=== PATIENT | female | born 1985 | race Caucasian/White ===

== ENCOUNTER 2016-06-06 23:55 | Emergency (ER) | payer OTHER ==
[2016-06-07] MEDS ORDERED: SODIUM CHLORIDE 0.9% 500 ML IV STA (00:09)
[2016-06-07] MEDS ORDERED: SODIUM CHLORIDE 0.9% 1,000 ML IV STA (00:09)
--- NOTE | 2016-06-07 00:18 | ED ---
General Adult HPI - General Chief complaint: Dizziness Stated complaint: Syncope Time Seen by Provider: 06/07/16 00:09 Source: patient, RN notes reviewed, old records reviewed Mode of arrival: wheelchair Limitations: no limitations - History of Present Illness Initial comments: This is a 30-year-old female the ER for evaluation of dizziness and syncope. Patient states she was sitting in a chair watching TV set up and passed out. Patient denies any prior history of syncope. Patient did give vaginal to her second child 7 months ago, no complications since. Patient has no medical history takes no medication was recently treated for urinary tract infection secondary to having urge incontinence. Patient denies any recent fevers. Again no headache chest patient was breath about pain no change in medications. Patient is does admit to both occasional drinking and smoking - Related Data Home Medications Medication Instructions Recorded Confirmed No Known Home Medications [No 02/22/16 06/07/16 Known Home Medications] Allergies Allergy/AdvReac Type Severity Reaction Status Date / Time sulfamethoxazole Allergy Rash/Hives Verified 06/07/16 00:03 [From Bactrim] trimethoprim [From Bactrim] Allergy Rash/Hives Verified 06/07/16 00:03 Review of Systems ROS Statement: Those systems with pertinent positive or pertinent negative responses have been documented in the HPI. ROS Other: All systems not noted in ROS Statement are negative. Past Medical History Past Medical History: GERD/Reflux History of Any Multi-Drug Resistant Organisms: None Reported Past Surgical History: No Surgical Hx Reported Past Anesthesia/Blood Transfusion Reactions: No Reported Reaction Past Psychological History: No Psychological Hx Reported Smoking Status: Current every day smoker Past Alcohol Use History: Occasional Additional Past Alcohol Use History / Comment(s): Pt states she drinks about one drink a week (one beer or glass of wine) Past Drug Use History: None Reported - Past Family History Mother Family Medical History: No Reported History General Exam Limitations: no limitations General appearance: alert, in no apparent distress, anxious Head exam: Present: atraumatic, normocephalic, normal inspection Eye exam: Present: normal appearance, PERRL, EOMI. Absent: scleral icterus, conjunctival injection, periorbital swelling ENT exam: Present: normal exam, mucous membranes moist Neck exam: Present: normal inspection. Absent: tenderness, meningismus, lymphadenopathy Respiratory exam: Present: normal lung sounds bilaterally. Absent: respiratory distress, wheezes, rales, rhonchi, stridor Cardiovascular Exam: Present: regular rate, normal rhythm, normal heart sounds. Absent: systolic murmur, diastolic murmur, rubs, gallop, clicks GI/Abdominal exam: Present: soft, normal bowel sounds. Absent: distended, tenderness, guarding, rebound, rigid Extremities exam: Present: normal inspection, full ROM, normal capillary refill. Absent: tenderness, pedal edema, joint swelling, calf tenderness Back exam: Present: normal inspection Neurological exam: Present: alert, oriented X3, CN II-XII intact Psychiatric exam: Present: normal affect, normal mood Skin exam: Present: warm, dry, intact, normal color. Absent: rash Course Vital Signs 06/07/16 00:01 Temperature 98.2 F Pulse Rate 80 Respiratory 20 Rate Blood Pressure 108/65 O2 Sat by Pulse 100 Oximetry - Reevaluation(s) Reevaluation #1: 06/07/16 00:59 Patient very anxious with IV placement, having panic attack Reevaluation #2: 06/07/16 02:08 Patient is without syncopal event here in the ER, no headache chest pain shortness of breath or abdominal pain EKG Findings - EKG Comments: EKG Findings:: EKG shows normal sinus rhythm rate of 69, MD 114, QRS 86, QTC 4: 30 Medical Decision Making - Medical Decision Making 1989 for evaluation. Patient presents today for evaluation of syncopal event. That appears to be positional in nature, patient of from sitting to standing and passed out. She has dehydrated on exam. Lab work is otherwise normal, no headache chest patient was rather bowel pain. Patient can be discharged home - Lab Data Result diagrams: 06/07/16 00:29 06/07/16 00:29 Lab Results 06/07/16 06/07/16 06/07/16 Range/Units 00:29 00:29 00:29 WBC 5.1 (3.8-10.6) k/uL RBC 4.28 (3.80-5.40) m/uL Hgb 13.7 (11.4-16.0) gm/dL Hct 40.2 (34.0-46.0) % MCV 93.8 (80.0-100.0) fL MCH 32.1 (25.0-35.0) pg MCHC 34.2 (31.0-37.0) g/dL RDW 12.4 (11.5-15.5) % Plt Count 130 L (150-450) k/uL Neutrophils % 66 % Lymphocytes % 25 % Monocytes % 6 % Eosinophils % 2 % Basophils % 0 % Neutrophils # 3.3 (1.3-7.7) k/uL Lymphocytes # 1.3 (1.0-4.8) k/uL Monocytes # 0.3 (0-1.0) k/uL Eosinophils # 0.1 (0-0.7) k/uL Basophils # 0.0 (0-0.2) k/uL PT (9.0-12.0) sec INR (<1.1) APTT (22.0-30.0) sec D-Dimer (<0.60) mg/L FEU Sodium 139 (137-145) mmol/L Potassium 3.9 (3.5-5.1) mmol/L Chloride 104 (98-107) mmol/L Carbon Dioxide 25 (22-30) mmol/L Anion Gap 10 mmol/L BUN 12 (7-17) mg/dL Creatinine 0.50 L (0.52-1.04) mg/dL Est GFR (MDRD) Af Amer >60 (>60 ml/min/1.73 sqM) Est GFR (MDRD) Non-Af >60 (>60 ml/min/1.73 sqM) Glucose 100 H (74-99) mg/dL Calcium 9.0 (8.4-10.2) mg/dL Phosphorus 3.3 (2.5-4.5) mg/dL Magnesium 1.9 (1.6-2.3) mg/dL Total Bilirubin 0.5 (0.2-1.3) mg/dL AST 23 (14-36) U/L ALT 24 (9-52) U/L Alkaline Phosphatase 86 (38-126) U/L Total Creatine Kinase 33 (30-135) U/L CK-MB (CK-2) <0.2 (0.0-2.4) ng/mL CK-MB (CK-2) Rel Index Troponin I <0.012 (0.000-0.034) ng/mL Total Protein 6.4 (6.3-8.2) g/dL Albumin 4.2 (3.5-5.0) g/dL TSH 0.989 (0.465-4.680) mIU/L Urine Color Urine Appearance (Clear) Urine pH (5.0-8.0) Ur Specific [place] (1.001-1.035) Urine Protein (Negative) Urine Glucose (UA) (Negative) Urine Ketones (Negative) Urine Blood (Negative) Urine Nitrate (Negative) Urine Bilirubin (Negative) Urine Urobilinogen (<2.0) mg/dL Ur Leukocyte Esterase (Negative) Urine RBC (0-5) /hpf Urine WBC (0-5) /hpf Ur Squamous Epith Cells (0-4) /hpf Amorphous Sediment (None) /hpf Urine Bacteria (None) /hpf Urine Mucus (None) /hpf Urine HCG, Qual (Not Detectd) 06/07/16 06/07/16 06/07/16 Range/Units 00:29 00:29 00:29 WBC (3.8-10.6) k/uL RBC (3.80-5.40) m/uL Hgb (11.4-16.0) gm/dL Hct (34.0-46.0) % MCV (80.0-100.0) fL MCH (25.0-35.0) pg MCHC (31.0-37.0) g/dL RDW (11.5-15.5) % Plt Count (150-450) k/uL Neutrophils % % Lymphocytes % % Monocytes % % Eosinophils % % Basophils % % Neutrophils # (1.3-7.7) k/uL Lymphocytes # (1.0-4.8) k/uL Monocytes # (0-1.0) k/uL Eosinophils # (0-0.7) k/uL Basophils # (0-0.2) k/uL PT 10.9 (9.0-12.0) sec INR 1.1 (<1.1) APTT 27.3 (22.0-30.0) sec D-Dimer 0.30 (<0.60) mg/L FEU Sodium (137-145) mmol/L Potassium (3.5-5.1) mmol/L Chloride (98-107) mmol/L Carbon Dioxide (22-30) mmol/L Anion Gap mmol/L BUN (7-17) mg/dL Creatinine (0.52-1.04) mg/dL Est GFR (MDRD) Af Amer (>60 ml/min/1.73 sqM) Est GFR (MDRD) Non-Af (>60 ml/min/1.73 sqM) Glucose (74-99) mg/dL Calcium (8.4-10.2) mg/dL Phosphorus (2.5-4.5) mg/dL Magnesium (1.6-2.3) mg/dL Total Bilirubin (0.2-1.3) mg/dL AST (14-36) U/L ALT (9-52) U/L Alkaline Phosphatase (38-126) U/L Total Creatine Kinase (30-135) U/L CK-MB (CK-2) (0.0-2.4) ng/mL CK-MB (CK-2) Rel Index Troponin I (0.000-0.034) ng/mL Total Protein (6.3-8.2) g/dL Albumin (3.5-5.0) g/dL TSH (0.465-4.680) mIU/L Urine Color Yellow Urine Appearance Cloudy H (Clear) Urine pH 7.5 (5.0-8.0) Ur Specific [place] 1.017 (1.001-1.035) Urine Protein Trace H (Negative) Urine Glucose (UA) Negative (Negative) Urine Ketones Negative (Negative) Urine Blood Negative (Negative) Urine Nitrate Negative (Negative) Urine Bilirubin Negative (Negative) Urine Urobilinogen <2.0 (<2.0) mg/dL Ur Leukocyte Esterase Moderate H (Negative) Urine RBC 3 (0-5) /hpf Urine WBC 3 (0-5) /hpf Ur Squamous Epith Cells 20 H (0-4) /hpf Amorphous Sediment Rare H (None) /hpf Urine Bacteria Rare H (None) /hpf Urine Mucus Rare H (None) /hpf Urine HCG, Qual Not Detected (Not Detectd) Disposition Clinical Impression: Dehydration, Orthostatic hypotension, Vasovagal syncope Disposition: HOME SELF-CARE Condition: Good Instructions: Syncope (ED) Referrals: None,Stated [Primary Care Provider] - 1-2 days
[2016-06-07 00:44] LABS: Basophils % (A) 0 %; CH 31.8; CHCM 34.1; Eosinophils # (A) 0.1 k/uL (0-0.7); Eosinophils % (A) 2 %; HCT 40.2 % (34.0-46.0); HDW 2.59; HGB 13.7 gm/dL (11.4-16.0); Luc # (Auto) 0.07; Luc % (Auto) 1; Lymphocytes # (A) 1.3 k/uL (1.0-4.8); Lymphocytes % (A) 25 %; MCH 32.1 pg (25.0-35.0); MCHC 34.2 g/dL (31.0-37.0); MCV 93.8 fL (80.0-100.0); Mean Platelet Volume 8.1; Monocytes # (A) 0.3 k/uL (0-1.0); Monocytes % (A) 6 %; Neutrophils # (A) 3.3 k/uL (1.3-7.7); Neutrophils % (A) 66 %; RBC 4.28 m/uL (3.80-5.40); RDW 12.4 % (11.5-15.5); WBC 5.1 k/uL (3.8-10.6); WBC (Perox) 5.17
[2016-06-07 00:51] LABS: Amorphous Sediment,Urine Rare /hpf; Appearance,Urine Cloudy (Clear); Bacteria,Urine Rare /hpf; Bilirubin,Urine Negative (Negative); Glucose,Urine (UA) Negative (Negative); Ketones,Urine Negative (Negative); Leukocyte Esterase,Urine Moderate (Negative); Mucus,Urine Rare /hpf; Nitrite,Urine Negative (Negative); PH, Urine 7.5 (5.0-8.0); Particle Count 18810; Protein,Urine Trace (Negative); RBC,Urine 3 /hpf (0-5); Specific Gravity,Urine 1.017 (1.001-1.035); Squamous Epithelial Cell,Urine 20 /hpf (0-4); UA Billing (MACRO vs. MICRO) MICRO; Urobilinogen,Urine <2.0 mg/dL (<2.0); WBC,Urine 3 /hpf (0-5)
[2016-06-07 00:53] LABS: ALT 24 U/L (9-52); AST 23 U/L (14-36); Alkaline Phosphatase 86 U/L (38-126); Anion Gap 10 mmol/L; Blood Urea Nitrogen 12 mg/dL (7-17); Carbon Dioxide 25 mmol/L (22-30); Chloride 104 mmol/L (98-107); Glucose 100 mg/dL (74-99); Magnesium 1.9 mg/dL (1.6-2.3); Non-African American GFR(MDRD) >60 (>60 ml/min/1.73 sqM); Phosphorous 3.3 mg/dL (2.5-4.5); Potassium 3.9 mmol/L (3.5-5.1); Sodium 139 mmol/L (137-145); Total Bilirubin 0.5 mg/dL (0.2-1.3); Total Protein 6.4 g/dL (6.3-8.2)
[2016-06-07 01:03] LABS: Creatine Kinase 33 U/L (30-135)
[2016-06-07 01:04] LABS: INR 1.1 (<1.1); Partial Thromboplastin Time 27.3 sec (22.0-30.0); Prothrombin Time 10.9 sec (9.0-12.0)
[2016-06-07 01:17] LABS: Creatine Kinase MB <0.2 ng/mL (0.0-2.4); Troponin I <0.012 ng/mL (0.000-0.034)
[2016-06-07 02:22] VITALS: BP 122/71; PULSE 67; RESP 18; TEMP 98
== END 2016-06-07 02:22 | disposition home or self-care (01) ==
LOC: EC 23:55
DX: E86.0 Dehydration (principal); I95.1 Orthostatic hypotension; R55 Syncope and collapse; F41.0 Panic disorder [episodic paroxysmal anxiety]; Z88.1 Allergy status to other antibiotic agents; Z88.2 Allergy status to sulfonamides; F17.200 Nicotine dependence, unspecified, uncomplicated
CPT/HCPCS: 36415; 80053; 81001; 81025; 82550; 82553; 83735; 84100; 84443; 84484; 85025; 85379; 85610; 85730; 87086; 93005; 99284

== ENCOUNTER 2017-02-13 20:41 | Emergency (ER) | payer OTHER ==
[2017-02-13 20:57] VITALS: RESP 16
--- NOTE | 2017-02-13 21:51 | ED ---
Female Urogenital HPI - General Chief complaint: Urogenital Stated complaint: cramping,pelvic pain Time Seen by Provider: 02/13/17 21:14 Source: patient Mode of arrival: ambulatory Limitations: no limitations - History of Present Illness Initial comments: This patient is a 31-year-old woman who presents to be evaluated for pelvic and vaginal pains. She states that going on for couple of days she has had pelvic cramping and also a feeling of pressure and sometimes burning sensations in the vagina itself. She states that she stopped at the [facility] where she had her urine tested and was told that it was fine. They recommended a pelvic examination but she states it was known watch her child during the exam so this was not performed. She was instructed that should the pains recur she should go to the ER which did happen this evening. Patient describes the pains as somewhat intermittent, they can be moderate intensity. She has not discovered worsening or relieving factors. She has not noted any change in urination or bowel movements. She has not had any discharge. MD Complaint: pelvic pain Onset/Timin -: days(s) Location: perineum, suprapubic Radiation: non-radiating Severity: moderate Quality: cramping, burning, other (Pressure) Consistency: intermittent Improves with: none Worsens with: none Patient : No - Related Data Home Medications Medication Instructions Recorded Confirmed No Known Home Medications [No 02/22/16 02/13/17 Known Home Medications] Allergies Allergy/AdvReac Type Severity Reaction Status Date / Time sulfamethoxazole Allergy Rash/Hives Verified 02/13/17 21:21 [From Bactrim] trimethoprim [From Bactrim] Allergy Rash/Hives Verified 02/13/17 21:21 Review of Systems ROS Statement: Those systems with pertinent positive or pertinent negative responses have been documented in the HPI. ROS Other: All systems not noted in ROS Statement are negative. Constitutional: Denies: fever, chills Respiratory: Denies: cough, dyspnea Cardiovascular: Denies: chest pain, palpitations Gastrointestinal: Reports: abdominal pain. Denies: nausea, vomiting, diarrhea, constipation Genitourinary: Reports: abnormal menses. Denies: dysuria, hematuria, discharge Musculoskeletal: Denies: back pain Skin: Denies: rash Neurological: Denies: headache, weakness, numbness Past Medical History Past Medical History: GERD/Reflux History of Any Multi-Drug Resistant Organisms: None Reported Past Surgical History: No Surgical Hx Reported Past Anesthesia/Blood Transfusion Reactions: No Reported Reaction Past Psychological History: No Psychological Hx Reported Smoking Status: Current every day smoker Past Alcohol Use History: Occasional Past Drug Use History: Marijuana - Past Family History Mother Family Medical History: No Reported History General Exam Limitations: no limitations General appearance: alert, in no apparent distress Head exam: Present: atraumatic, normocephalic Eye exam: Present: normal appearance. Absent: scleral icterus, conjunctival injection ENT exam: Present: normal oropharynx, mucous membranes moist Respiratory exam: Present: normal lung sounds bilaterally. Absent: respiratory distress, wheezes, rales, rhonchi, stridor Cardiovascular Exam: Present: regular rate, normal rhythm, normal heart sounds. Absent: systolic murmur, diastolic murmur, rubs, gallop GI/Abdominal exam: Present: soft, normal bowel sounds. 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 Absent: erythema, swelling, lesions, lacerations, ecchymosis Speculum exam: Present: normal speculum exam. Absent: erythema, vaginal discharge, cervical discharge, vaginal bleeding, foreign body, tissue, laceration By manual exam: Present: adnexal tenderness (Mild left adnexal tenderness). Absent: cervical motion tenderness, adnexal mass, uterine enlargement, uterine tenderness Extremities exam: Present: normal inspection, normal capillary refill. Absent: pedal edema, calf tenderness Back exam: Present: normal inspection. Absent: CVA tenderness (R), CVA tenderness (L) Neurological exam: Present: alert Skin exam: Present: warm, dry, intact, normal color. Absent: rash Course Vital Signs 02/13/17 20:53 Temperature 98.7 F Pulse Rate 93 Respiratory 16 Rate Blood Pressure 106/69 O2 Sat by Pulse 99 Oximetry Medical Decision Making - Lab Data Lab Results 02/13/17 02/13/17 02/13/17 Range/Units 21:45 21:45 22:30 Urine Color Yellow Urine Appearance Clear (Clear) Urine pH 6.5 (5.0-8.0) Ur Specific [place] 1.023 (1.001-1.035) Urine Protein Trace H (Negative) Urine Glucose (UA) Negative (Negative) Urine Ketones Negative (Negative) Urine Blood Negative (Negative) Urine Nitrite Negative (Negative) Urine Bilirubin Negative (Negative) Urine Urobilinogen <2.0 (<2.0) mg/dL Ur Leukocyte Esterase Negative (Negative) Urine HCG, Qual Not Detected (Not Detectd) Trichomonas Ag (Rapid) Negative (Negative) Disposition Clinical Impression: Pelvic pain Disposition: HOME SELF-CARE Condition: Good Instructions: Pelvic Pain in Women (ED) Referrals: Malik Samayoa MD [Primary Care Provider] - 1-2 days Aileen Gomez DO [Doctor of Osteopathic Medicine] - 1-2 days
[2017-02-13 21:57] LABS: Appearance,Urine Clear (Clear); Bilirubin,Urine Negative (Negative); Glucose,Urine (UA) Negative (Negative); Ketones,Urine Negative (Negative); Leukocyte Esterase,Urine Negative (Negative); Nitrite,Urine Negative (Negative); PH, Urine 6.5 (5.0-8.0); Protein,Urine Trace (Negative); Specific Gravity,Urine 1.023 (1.001-1.035); UA Billing (MACRO vs. MICRO) CHEM; Urobilinogen,Urine <2.0 mg/dL (<2.0)
--- NOTE | 2017-02-13 23:25 | US ---
EXAM: US Pelvis Complete, Transabdominal US Pelvis, Transvaginal CLINICAL HISTORY: Reason: Pain TECHNIQUE: Real-time transabdominal and transvaginal pelvic ultrasound (complete) with image documentation. Transvaginal imaging was used for better evaluation of the endometrium and adnexa. COMPARISON: No relevant prior studies available. FINDINGS: Uterus/cervix: Unremarkable. Normal endometrial stripe thickness. No myometrial mass. The uterus measures 7.0 x 5.4 x 6.3 cm. Right ovary: Not well seen due to overlying bowel gas. Left ovary: Unremarkable. No mass. Normal blood flow. Left ovary measures 4.1 x 2.0 x 2.8 cm. Free fluid: No free fluid. Bladder: Unremarkable as visualized. Wall is normal thickness for degree of distention. IMPRESSION: No significant abnormalities.
[2017-02-13 23:40] VITALS: BP 142/70; PULSE 67; TEMP 97.4
== END 2017-02-13 23:39 | disposition home or self-care (01) ==
LOC: EC 20:41
DX: R10.2 Pelvic and perineal pain (principal); R10.30 Lower abdominal pain, unspecified; F17.200 Nicotine dependence, unspecified, uncomplicated; Z88.1 Allergy status to other antibiotic agents
CPT/HCPCS: 76830; 81003; 81025; 87070; 87205; 87491; 87591; 87808; 93976; 99284

== ENCOUNTER 2017-02-18 13:33 | Emergency (ER) | payer OTHER ==
[2017-02-18 16:14] LABS: ALT 22 U/L (9-52); AST 19 U/L (14-36); Alkaline Phosphatase 51 U/L (38-126); Anion Gap 8 mmol/L; Blood Urea Nitrogen 7 mg/dL (7-17); Calcium 8.9 mg/dL (8.4-10.2); Carbon Dioxide 23 mmol/L (22-30); Chloride 108 mmol/L (98-107); Glucose 79 mg/dL (74-99); Non-African American GFR(MDRD) >60 (>60 ml/min/1.73 sqM); Sodium 139 mmol/L (137-145); Total Bilirubin 0.7 mg/dL (0.2-1.3); Total Protein 6.7 g/dL (6.3-8.2)
[2017-02-18 16:15] LABS: Basophils % (A) 1 %; CH 31.2; CHCM 34.2; Eosinophils % (A) 1 %; HCT 37.2 % (34.0-46.0); HGB 12.7 gm/dL (11.4-16.0); Luc # (Auto) 0.12; Luc % (Auto) 4; Lymphocytes # (A) 0.6 k/uL (1.0-4.8); Lymphocytes % (A) 20 %; MCH 31.4 pg (25.0-35.0); MCHC 34.2 g/dL (31.0-37.0); MCV 91.8 fL (80.0-100.0); Mean Platelet Volume 8.4; Monocytes # (A) 0.2 k/uL (0-1.0); Monocytes % (A) 9 %; Neutrophils # (A) 1.9 k/uL (1.3-7.7); Neutrophils % (A) 66 %; RBC 4.05 m/uL (3.80-5.40); RDW 13.1 % (11.5-15.5); WBC 2.8 k/uL (3.8-10.6); WBC (Perox) 2.82
--- NOTE | 2017-02-18 16:26 | ED ---
General Adult HPI - General Chief complaint: Abdominal Pain Stated complaint: blood in stool Time Seen by Provider: 02/18/17 15:23 Source: patient Mode of arrival: ambulatory Limitations: no limitations - History of Present Illness Initial comments: This is a 31-year-old female with no past medical history who presents emergency department for rectal bleeding. She states that she had a couple of bowel movements today with bright red blood streaking on the stool. She became concerned so she decided come emergency department. She states that she has been having some lower abdominal pain intermittently however not constant. She states that she was evaluated here with pelvic ultrasound was normal and sent home. She denies any diarrhea. She states that the stool was not grossly the itself it's just streaking mixed in with the stool. She denies any epigastric pain. No nausea or vomiting. No fevers or chills. No lightheadedness. No other complaints. - Related Data Previous Rx's Medication Instructions Recorded Hydrocortisone [Anusol-Hc] 1 applic RECTAL BID #30 gm 02/18/17 Allergies Allergy/AdvReac Type Severity Reaction Status Date / Time sulfamethoxazole Allergy Rash/Hives Verified 02/18/17 15:37 [From Bactrim] trimethoprim [From Bactrim] Allergy Rash/Hives Verified 02/18/17 15:37 Review of Systems ROS Statement: Those systems with pertinent positive or pertinent negative responses have been documented in the HPI. ROS Other: All systems not noted in ROS Statement are negative. Past Medical History Past Medical History: GERD/Reflux Additional Past Medical History / Comment(s): rectal fissure History of Any Multi-Drug Resistant Organisms: None Reported Past Surgical History: No Surgical Hx Reported Past Anesthesia/Blood Transfusion Reactions: No Reported Reaction Past Psychological History: No Psychological Hx Reported Smoking Status: Current every day smoker Past Alcohol Use History: Occasional Past Drug Use History: Marijuana - Past Family History Mother Family Medical History: No Reported History General Exam - General Exam Comments Initial Comments: Constitutional: [Awake alert] [Appears comfortable] Head: [Normocephalic atraumatic] Eyes: [no conjunctival injection] [No scleral icterus] [EOMI] Neck: [No JVD] [Supple] Heart: [Regular rate rhythm] [normal S1-S2] [no murmurs] Lungs: [Clear to auscultation bilaterally] [No wheezing] [No rales] Abdomen: [Soft] [nondistended] [nontender], rectal exam revealed external hemorrhoids. There also internal hemorrhoids palpated. Guaiac was negative. Extremities: [Non edematous] [DP pulses intact] [Radial pulses intact] Neuro: [A&Ox3] [No focal neurologic deficits] Psych: [Appropriate mood and affect] Limitations: no limitations Course Vital Signs 02/18/17 14:18 Temperature 98.9 F Pulse Rate 82 Respiratory 20 Rate Blood Pressure 107/64 O2 Sat by Pulse 99 Oximetry Medical Decision Making - Medical Decision Making This is a 31-year-old female presented for rectal bleeding. Blood counts were normal. Rectal exam revealed hemorrhoids. At this time I feel the patient's bleeding is likely secondary to her hemorrhoids. I'm going to send her home with Anusol cream that she can use twice a day. She can return she has worsening or changing symptoms. Otherwise follow-up with her primary doctor. All questions were answered. - Lab Data Result diagrams: 02/18/17 15:50 02/18/17 15:50 Lab Results 02/18/17 02/18/17 Range/Units 15:50 15:50 WBC 2.8 L (3.8-10.6) k/uL RBC 4.05 (3.80-5.40) m/uL Hgb 12.7 (11.4-16.0) gm/dL Hct 37.2 (34.0-46.0) % MCV 91.8 (80.0-100.0) fL MCH 31.4 (25.0-35.0) pg MCHC 34.2 (31.0-37.0) g/dL RDW 13.1 (11.5-15.5) % Plt Count 103 L (150-450) k/uL Neutrophils % 66 % Lymphocytes % 20 % Monocytes % 9 % Eosinophils % 1 % Basophils % 1 % Neutrophils # 1.9 (1.3-7.7) k/uL Lymphocytes # 0.6 L (1.0-4.8) k/uL Monocytes # 0.2 (0-1.0) k/uL Eosinophils # 0.0 (0-0.7) k/uL Basophils # 0.0 (0-0.2) k/uL Sodium 139 (137-145) mmol/L Potassium 4.0 (3.5-5.1) mmol/L Chloride 108 H (98-107) mmol/L Carbon Dioxide 23 (22-30) mmol/L Anion Gap 8 mmol/L BUN 7 (7-17) mg/dL Creatinine 0.60 (0.52-1.04) mg/dL Est GFR (MDRD) Af Amer >60 (>60 ml/min/1.73 sqM) Est GFR (MDRD) Non-Af >60 (>60 ml/min/1.73 sqM) Glucose 79 (74-99) mg/dL Calcium 8.9 (8.4-10.2) mg/dL Total Bilirubin 0.7 (0.2-1.3) mg/dL AST 19 (14-36) U/L ALT 22 (9-52) U/L Alkaline Phosphatase 51 (38-126) U/L Total Protein 6.7 (6.3-8.2) g/dL Albumin 4.1 (3.5-5.0) g/dL Lipase 96 (23-300) U/L Disposition Clinical Impression: Hemorrhoids Disposition: HOME SELF-CARE Condition: Stable Instructions: Rectal Bleeding (ED) Prescriptions: Hydrocortisone [Anusol-Hc] 1 applic RECTAL BID #30 gm Referrals: Malik Samayoa MD [Primary Care Provider] - 1-2 days
[2017-02-18 16:47] VITALS: BP 105/60; PULSE 66; RESP 16; TEMP 98
== END 2017-02-18 16:46 | disposition home or self-care (01) ==
LOC: EC 13:33
DX: K64.4 Residual hemorrhoidal skin tags (principal); K64.8 Other hemorrhoids; R10.30 Lower abdominal pain, unspecified; F17.200 Nicotine dependence, unspecified, uncomplicated; Z88.1 Allergy status to other antibiotic agents
CPT/HCPCS: 36415; 80053; 83690; 85025; 99284

== ENCOUNTER 2017-05-24 19:34 | Emergency (ER) | payer OTHER ==
[2017-05-24 20:03] VITALS: RESP 18
[2017-05-24] MEDS ORDERED: SODIUM CHLORIDE 0.9% 2,000 ML IR ONE (21:53)
[2017-05-24] MEDS ORDERED: ACETAMINOPHEN TAB 500 MG TAB PO STA (21:55)
[2017-05-24 22:12] LABS: Basophils % (A) 0 %; Eosinophils # (A) 0.1 k/uL (0-0.7); Eosinophils % (A) 1 %; Lymphocytes # (A) 1.3 k/uL (1.0-4.8); Lymphocytes % (A) 23 %; MCH 30.4 pg (25.0-35.0); MCHC 33.3 g/dL (31.0-37.0); MCV 91.4 fL (80.0-100.0); Mean Platelet Volume 8.3; Monocytes # (A) 0.4 k/uL (0-1.0); Monocytes % (A) 6 %; Neutrophils # (A) 3.8 k/uL (1.3-7.7); Neutrophils % (A) 67 %; Platelet Count 145 k/uL (150-450); RBC 4.27 m/uL (3.80-5.40); RDW 13.3 % (11.5-15.5); WBC 5.7 k/uL (3.8-10.6)
[2017-05-24 22:14] LABS: Appearance,Urine Cloudy (Clear); Bilirubin,Urine Negative (Negative); Blood,Urine Negative (Negative); Color,Urine Yellow; Glucose,Urine (UA) Negative (Negative); Ketones,Urine Negative (Negative); Leukocyte Esterase,Urine Small (Negative); Mucus,Urine Occasional /hpf; Nitrite,Urine Negative (Negative); Protein,Urine Trace (Negative); RBC,Urine 1 /hpf (0-5); Squamous Epithelial Cell,Urine 10 /hpf (0-4); Urobilinogen,Urine <2.0 mg/dL (<2.0); WBC,Urine 2 /hpf (0-5)
--- NOTE | 2017-05-24 22:58 | ED ---
Abdominal Pain HPI - General Chief Complaint: Abdominal Pain Stated Complaint: Abd Pain Time Seen by Provider: 05/24/17 21:23 Source: patient, RN notes reviewed, old records reviewed Mode of arrival: ambulatory Limitations: no limitations - History of Present Illness Initial Comments: 31-year-old feel presents emergency department chief complaint of left lower quadrant abdominal pain, and purulent vaginal discharge reports with 4 days. She reports she had a miscarriage in, and was bleeding for the past 6 days prior to the symptoms starting 4 days ago. This is patient's fifth cavities of 3 previous miscarriages 2 living children. She denies fever, chills , vomiting, back pain, dysuria, hematuria. She reports that her pain started immediately after having intercourse. - Related Data Home Medications Medication Instructions Recorded Confirmed No Known Home Medications [No 05/24/17 05/24/17 Known Home Medications] Allergies Allergy/AdvReac Type Severity Reaction Status Date / Time sulfamethoxazole Allergy Rash/Hives Verified 05/24/17 21:18 [From Bactrim] trimethoprim [From Bactrim] Allergy Rash/Hives Verified 05/24/17 21:18 Review of Systems ROS Statement: Those systems with pertinent positive or pertinent negative responses have been documented in the HPI. ROS Other: All systems not noted in ROS Statement are negative. Past Medical History Past Medical History: GERD/Reflux Additional Past Medical History / Comment(s): rectal fissure, miscarriage History of Any Multi-Drug Resistant Organisms: None Reported Past Surgical History: No Surgical Hx Reported Past Anesthesia/Blood Transfusion Reactions: No Reported Reaction Past Psychological History: No Psychological Hx Reported Smoking Status: Current every day smoker Past Alcohol Use History: Occasional Past Drug Use History: Marijuana - Past Family History Mother Family Medical History: No Reported History General Exam - General Exam Comments Initial Comments: This is a 31 year old female, no distress Limitations: no limitations General appearance: alert, in no apparent distress Head exam: Present: atraumatic, normocephalic, normal inspection Eye exam: Present: normal appearance, PERRL, EOMI. Absent: scleral icterus, conjunctival injection, periorbital swelling ENT exam: Present: normal exam, mucous membranes moist Neck exam: Present: normal inspection. Absent: tenderness, meningismus, lymphadenopathy Respiratory exam: Present: normal lung sounds bilaterally. Absent: respiratory distress, wheezes, rales, rhonchi, stridor Cardiovascular Exam: Present: regular rate, normal rhythm, normal heart sounds. Absent: systolic murmur, diastolic murmur, rubs, gallop, clicks GI/Abdominal exam: Present: soft, tenderness (LLQ tenderness), normal bowel sounds. Absent: distended, guarding, rebound, rigid External exam: Present: normal external exam Speculum exam: Present: normal speculum exam. Absent: erythema, vaginal discharge, cervical discharge, vaginal bleeding By manual exam: Present: normal by manual exam. Absent: cervical motion tenderness, adnexal tenderness Extremities exam: Present: normal inspection, full ROM, normal capillary refill. Absent: tenderness, pedal edema, joint swelling, calf tenderness Back exam: Present: normal inspection Neurological exam: Present: alert, oriented X3, CN II-XII intact Psychiatric exam: Present: normal affect, normal mood Skin exam: Present: warm, dry, intact, normal color. Absent: rash Course Vital Signs 05/24/17 05/24/17 19:59 23:40 Temperature 100.0 F H 98.2 F Pulse Rate 78 74 Respiratory 18 18 Rate Blood Pressure 115/58 109/60 O2 Sat by Pulse 100 100 Oximetry Medical Decision Making - Medical Decision Making 31-year-old feel presents emergency department chief complaint of left lower quadrant abdominal pain, and purulent vaginal discharge reports with 4 days. She reports she had a miscarriage in, and was bleeding for the past 6 days prior to the symptoms starting 4 days ago. Patient has no significant vaginal discharge, she is tender over LLQ. HCG quant is negative. Patient urinalysis is negative for UTI. - Lab Data Result diagrams: 05/24/17 21:45 Lab Results 05/24/17 05/24/17 05/24/17 Range/Units 21:45 21:45 21:45 WBC 5.7 (3.8-10.6) k/uL RBC 4.27 (3.80-5.40) m/uL Hgb 13.0 (11.4-16.0) gm/dL Hct 39.0 (34.0-46.0) % MCV 91.4 (80.0-100.0) fL MCH 30.4 (25.0-35.0) pg MCHC 33.3 (31.0-37.0) g/dL RDW 13.3 (11.5-15.5) % Plt Count 145 L (150-450) k/uL Neutrophils % 67 % Lymphocytes % 23 % Monocytes % 6 % Eosinophils % 1 % Basophils % 0 % Neutrophils # 3.8 (1.3-7.7) k/uL Lymphocytes # 1.3 (1.0-4.8) k/uL Monocytes # 0.4 (0-1.0) k/uL Eosinophils # 0.1 (0-0.7) k/uL Basophils # 0.0 (0-0.2) k/uL HCG, Quant mIU/mL Urine Color Yellow Urine Appearance Cloudy H (Clear) Urine pH 6.0 (5.0-8.0) Ur Specific [place] 1.020 (1.001-1.035) Urine Protein Trace H (Negative) Urine Glucose (UA) Negative (Negative) Urine Ketones Negative (Negative) Urine Blood Negative (Negative) Urine Nitrite Negative (Negative) Urine Bilirubin Negative (Negative) Urine Urobilinogen <2.0 (<2.0) mg/dL Ur Leukocyte Esterase Small H (Negative) Urine RBC 1 (0-5) /hpf Urine WBC 2 (0-5) /hpf Ur Squamous Epith Cells 10 H (0-4) /hpf Urine Mucus Occasional H (None) /hpf C.trachomatis RNA (Not detected) Chlamydia/GC DNA Source N.gonorrhoeae RNA (Not detected) Trichomonas Ag (Rapid) (Negative) Blood Type O Positive Blood Type Recheck No 05/24/17 05/24/17 05/24/17 Range/Units 21:45 22:05 22:05 WBC (3.8-10.6) k/uL RBC (3.80-5.40) m/uL Hgb (11.4-16.0) gm/dL Hct (34.0-46.0) % MCV (80.0-100.0) fL MCH (25.0-35.0) pg MCHC (31.0-37.0) g/dL RDW (11.5-15.5) % Plt Count (150-450) k/uL Neutrophils % % Lymphocytes % % Monocytes % % Eosinophils % % Basophils % % Neutrophils # (1.3-7.7) k/uL Lymphocytes # (1.0-4.8) k/uL Monocytes # (0-1.0) k/uL Eosinophils # (0-0.7) k/uL Basophils # (0-0.2) k/uL HCG, Quant <2.4 mIU/mL Urine Color Urine Appearance (Clear) Urine pH (5.0-8.0) Ur Specific [place] (1.001-1.035) Urine Protein (Negative) Urine Glucose (UA) (Negative) Urine Ketones (Negative) Urine Blood (Negative) Urine Nitrite (Negative) Urine Bilirubin (Negative) Urine Urobilinogen (<2.0) mg/dL Ur Leukocyte Esterase (Negative) Urine RBC (0-5) /hpf Urine WBC (0-5) /hpf Ur Squamous Epith Cells (0-4) /hpf Urine Mucus (None) /hpf C.trachomatis RNA Not detected (Not detected) Chlamydia/GC DNA Source Endocervix N.gonorrhoeae RNA Not detected (Not detected) Trichomonas Ag (Rapid) Negative (Negative) Blood Type Blood Type Recheck - Radiology Data Radiology results: report reviewed US shows evidence of Left sided complex ovarian cyst. Disposition Clinical Impression: Left ovarian cyst Disposition: HOME SELF-CARE Condition: Good Instructions: Ovarian Cyst (ED) Additional Instructions: Patient advised to take Motrin and Tylenol for pain. Apply warm, severe. Patient should follow-up with [facility]. Return to emergency department if any alarming signs or symptoms occur. Referrals: Malik Samayoa MD [Primary Care Provider] - 1-2 days Dionisio Plasencia MD [STAFF PHYSICIAN] - 1-2 days Time of Disposition: 23:58
--- NOTE | 2017-05-24 23:33 | US ---
EXAM: US Pelvis, Transvaginal CLINICAL HISTORY: Reason: Pain TECHNIQUE: Real-time transvaginal pelvic ultrasound (complete) with image documentation. Transvaginal imaging was used for better evaluation of the endometrium and adnexa. COMPARISON: No relevant prior studies available. FINDINGS: Uterus/cervix: Retroverted. Endometrial stripe is 8 mm thickness. Right ovary: Right ovary is 2.0 x 1.2 x 1.6 cm. Small follicles are noted as well as normal flow. Normal blood flow. Left ovary: Left ovary measures 2.5 x 1.9 x 2.7 cm. There is a septated cyst or adjacent cysts measuring a conglomerate length of 2.3 cm. This may represent a functional cyst. Normal blood flow. Free fluid: No free fluid. IMPRESSION: 1. No acute findings or evidence for torsion. 2. Complex left ovarian cyst, possibly functional. Follow-up can be obtained if indicated.
[2017-05-24 23:41] VITALS: BP 109/60; PULSE 74; TEMP 98.2
--- NOTE | 2017-05-25 04:10 | CDI ---
Documentation Clarification OP Dear LELA Petersen: Please do addendum to ED report for Physical exam. Thank you, Daphne Beyer Boiler Reliner If you have any question, Please contact manager loan at [phone] [facility]
[2017-05-29 11:52] LABS: Chlamydia trachomatis rRNA Not detected (Not detected); Neisseria gonorrhoeae rRNA Not detected (Not detected)
== END 2017-05-25 00:11 | disposition home or self-care (01) ==
LOC: EC 19:34
DX: N83.202 Unspecified ovarian cyst, left side (principal); R10.32 Left lower quadrant pain; N89.8 Other specified noninflammatory disorders of vagina; F17.200 Nicotine dependence, unspecified, uncomplicated; Z88.1 Allergy status to other antibiotic agents; Z53.20 Procedure and treatment not carried out because of patient's decision for unspecified reasons
CPT/HCPCS: 36415; 76830; 81001; 84702; 85025; 86900; 86901; 87086; 87491; 87591; 87808; 93975; 99284

== ENCOUNTER 2017-08-03 14:23 | Emergency (ER) | payer OTHER ==
[2017-08-03 14:58] VITALS: RESP 18
[2017-08-03 16:44] LABS: Basophils % (A) 0 %; Eosinophils % (A) 1 %; HCT 40.5 % (34.0-46.0); HGB 13.3 gm/dL (11.4-16.0); Lymphocytes % (A) 13 %; MCH 29.6 pg (25.0-35.0); MCHC 32.9 g/dL (31.0-37.0); MCV 89.7 fL (80.0-100.0); Monocytes # (A) 0.4 k/uL (0-1.0); Monocytes % (A) 5 %; Neutrophils % (A) 80 %; Platelet Count 116 k/uL (150-450); RBC 4.51 m/uL (3.80-5.40); RDW 13.3 % (11.5-15.5); WBC 7.6 k/uL (3.8-10.6)
[2017-08-03 16:58] LABS: ALT 17 U/L (9-52); AST 17 U/L (14-36); Albumin 4.3 g/dL (3.5-5.0); Alkaline Phosphatase 45 U/L (38-126); Anion Gap 11 mmol/L; Blood Urea Nitrogen 8 mg/dL (7-17); Calcium 9.3 mg/dL (8.4-10.2); Carbon Dioxide 23 mmol/L (22-30); Chloride 105 mmol/L (98-107); Glucose 84 mg/dL (74-99); Potassium 3.9 mmol/L (3.5-5.1); Sodium 139 mmol/L (137-145); Total Bilirubin 0.5 mg/dL (0.2-1.3); Total Protein 6.8 g/dL (6.3-8.2)
[2017-08-03] MEDS ORDERED: SODIUM CHLORIDE 0.9% 1,000 ML IV ONE (17:06)
[2017-08-03 18:04] LABS: Appearance,Urine Cloudy (Clear); Bacteria,Urine Many /hpf; Bilirubin,Urine Negative (Negative); Blood,Urine Negative (Negative); Color,Urine Yellow; Glucose,Urine (UA) Negative (Negative); Ketones,Urine Negative (Negative); Leukocyte Esterase,Urine Trace (Negative); Mucus,Urine Moderate /hpf; Protein,Urine Trace (Negative); Squamous Epithelial Cell,Urine 1 /hpf (0-4); Urobilinogen,Urine <2.0 mg/dL (<2.0); WBC,Urine 4 /hpf (0-5)
--- NOTE | 2017-08-03 18:12 | ED ---
Fever HPI - General Chief Complaint: Fever Stated Complaint: Fever Time Seen by Provider: 08/03/17 16:36 Source: patient, RN notes reviewed, old records reviewed Mode of arrival: ambulatory Limitations: no limitations - History of Present Illness Initial Comments: This is a 31-year-old female presented to emergency Department chief complaint of fever and diarrhea yesterday. She reports that she is approximately 8 weeks . Patient states that she called the PHYSICIAN/INTERNIST in [facility] and they stated for her to come to the emergency department. She reports that she has no specific abdominal pain. She states that she has not had a fever today. No vomiting or nausea. Patient reports that due to her he wanted her to come here to be evaluated and get an ultrasound.Patient denies any recent fever , chills, shortness of breath, chest pain, back pain, abdominal pain, nausea vomiting, numbness or tingling, dysuria or hematuria, constipation or diarrhea, headaches or visual changes, or any other current symptoms - Related Data Home Medications Medication Instructions Recorded Confirmed Pnv No.95/Ferrous Fum/Folic AC 1 tab PO DAILY 08/03/17 08/03/17 [ Multivitamin Tablet] Previous Rx's Medication Instructions Recorded Cephalexin [Keflex] 500 mg PO Q12HR #10 cap 08/03/17 Allergies Allergy/AdvReac Type Severity Reaction Status Date / Time sulfamethoxazole Allergy Rash/Hives Verified 08/03/17 16:44 [From Bactrim] trimethoprim [From Bactrim] Allergy Rash/Hives Verified 08/03/17 16:44 Review of Systems ROS Statement: Those systems with pertinent positive or pertinent negative responses have been documented in the HPI. ROS Other: All systems not noted in ROS Statement are negative. Past Medical History Past Medical History: GERD/Reflux Additional Past Medical History / Comment(s): rectal fissure, miscarriage History of Any Multi-Drug Resistant Organisms: None Reported Past Surgical History: No Surgical Hx Reported Past Anesthesia/Blood Transfusion Reactions: No Reported Reaction Past Psychological History: No Psychological Hx Reported Smoking Status: Former smoker Past Alcohol Use History: None Reported Past Drug Use History: None Reported, Marijuana - Past Family History Mother Family Medical History: No Reported History General Exam - General Exam Comments Initial Comments: This is a 31-year-old female. No acute distress. Limitations: no limitations General appearance: alert, in no apparent distress Head exam: Present: atraumatic, normocephalic, normal inspection Eye exam: Present: normal appearance, PERRL, EOMI. Absent: scleral icterus, conjunctival injection, periorbital swelling ENT exam: Present: normal exam, mucous membranes moist Neck exam: Present: normal inspection. Absent: tenderness, meningismus, lymphadenopathy Respiratory exam: Present: normal lung sounds bilaterally. Absent: respiratory distress, wheezes, rales, rhonchi, stridor Cardiovascular Exam: Present: regular rate, normal rhythm, normal heart sounds. Absent: systolic murmur, diastolic murmur, rubs, gallop, clicks GI/Abdominal exam: Present: soft, tenderness (RLQ tenderness), normal bowel sounds. Absent: distended, guarding, rebound, rigid Extremities exam: Present: normal inspection, full ROM, normal capillary refill. Absent: tenderness, pedal edema, joint swelling, calf tenderness Back exam: Present: normal inspection Neurological exam: Present: alert, oriented X3, CN II-XII intact Psychiatric exam: Present: normal affect, normal mood Skin exam: Present: warm, dry, intact, normal color. Absent: rash Course Vital Signs 08/03/17 08/03/17 14:56 19:01 Temperature 99.5 F 98.7 F Pulse Rate 84 83 Respiratory 18 18 Rate Blood Pressure 127/70 105/55 O2 Sat by Pulse 100 96 Oximetry Medical Decision Making - Medical Decision Making 31-year-old female presents emergency room stay she bled diarrhea and fever yesterday. Was yellow-green. No urinary symptoms. She is currently . HCG Quant was ordered. She has not had any ultrasounds or studies done at this time. She will follow up with [facility] PHYSICIAN/INTERNIST. Patient was offered IV fluids however she is refusing them at this time. We did obtain lab work. Patient's labwork was reviewed and normal. US shows no changes. Labs were reviewed adn normal. Patient informed that fever and diarrhea are from viral GI illness. Patient advised to follow up with PCP. She feels better now that she has US. - Lab Data Result diagrams: 08/03/17 16:31 08/03/17 16:31 Lab Results 08/03/17 08/03/17 08/03/17 Range/Units 16:31 16:31 16:31 WBC 7.6 (3.8-10.6) k/uL RBC 4.51 (3.80-5.40) m/uL Hgb 13.3 (11.4-16.0) gm/dL Hct 40.5 (34.0-46.0) % MCV 89.7 (80.0-100.0) fL MCH 29.6 (25.0-35.0) pg MCHC 32.9 (31.0-37.0) g/dL RDW 13.3 (11.5-15.5) % Plt Count 116 L (150-450) k/uL Neutrophils % 80 % Lymphocytes % 13 % Monocytes % 5 % Eosinophils % 1 % Basophils % 0 % Neutrophils # 6.0 (1.3-7.7) k/uL Lymphocytes # 1.0 (1.0-4.8) k/uL Monocytes # 0.4 (0-1.0) k/uL Eosinophils # 0.0 (0-0.7) k/uL Basophils # 0.0 (0-0.2) k/uL Sodium 139 (137-145) mmol/L Potassium 3.9 (3.5-5.1) mmol/L Chloride 105 (98-107) mmol/L Carbon Dioxide 23 (22-30) mmol/L Anion Gap 11 mmol/L BUN 8 (7-17) mg/dL Creatinine 0.50 L (0.52-1.04) mg/dL Est GFR (MDRD) Af Amer >60 (>60 ml/min/1.73 sqM) Est GFR (MDRD) Non-Af >60 (>60 ml/min/1.73 sqM) Glucose 84 (74-99) mg/dL Calcium 9.3 (8.4-10.2) mg/dL Total Bilirubin 0.5 (0.2-1.3) mg/dL AST 17 (14-36) U/L ALT 17 (9-52) U/L Alkaline Phosphatase 45 (38-126) U/L Total Protein 6.8 (6.3-8.2) g/dL Albumin 4.3 (3.5-5.0) g/dL HCG, Qual Cancelled HCG, Quant mIU/mL Urine Color Urine Appearance (Clear) Urine pH (5.0-8.0) Ur Specific [place] (1.001-1.035) Urine Protein (Negative) Urine Glucose (UA) (Negative) Urine Ketones (Negative) Urine Blood (Negative) Urine Nitrite (Negative) Urine Bilirubin (Negative) Urine Urobilinogen (<2.0) mg/dL Ur Leukocyte Esterase (Negative) Urine WBC (0-5) /hpf Ur Squamous Epith Cells (0-4) /hpf Urine Bacteria (None) /hpf Urine Mucus (None) /hpf Blood Type O Positive Blood Type Recheck No 08/03/17 08/03/17 Range/Units 16:31 17:34 WBC (3.8-10.6) k/uL RBC (3.80-5.40) m/uL Hgb (11.4-16.0) gm/dL Hct (34.0-46.0) % MCV (80.0-100.0) fL MCH (25.0-35.0) pg MCHC (31.0-37.0) g/dL RDW (11.5-15.5) % Plt Count (150-450) k/uL Neutrophils % % Lymphocytes % % Monocytes % % Eosinophils % % Basophils % % Neutrophils # (1.3-7.7) k/uL Lymphocytes # (1.0-4.8) k/uL Monocytes # (0-1.0) k/uL Eosinophils # (0-0.7) k/uL Basophils # (0-0.2) k/uL Sodium (137-145) mmol/L Potassium (3.5-5.1) mmol/L Chloride (98-107) mmol/L Carbon Dioxide (22-30) mmol/L Anion Gap mmol/L BUN (7-17) mg/dL Creatinine (0.52-1.04) mg/dL Est GFR (MDRD) Af Amer (>60 ml/min/1.73 sqM) Est GFR (MDRD) Non-Af (>60 ml/min/1.73 sqM) Glucose (74-99) mg/dL Calcium (8.4-10.2) mg/dL Total Bilirubin (0.2-1.3) mg/dL AST (14-36) U/L ALT (9-52) U/L Alkaline Phosphatase (38-126) U/L Total Protein (6.3-8.2) g/dL Albumin (3.5-5.0) g/dL HCG, Qual HCG, Quant 192899.0 mIU/mL Urine Color Yellow Urine Appearance Cloudy H (Clear) Urine pH 7.0 (5.0-8.0) Ur Specific [place] 1.020 (1.001-1.035) Urine Protein Trace H (Negative) Urine Glucose (UA) Negative (Negative) Urine Ketones Negative (Negative) Urine Blood Negative (Negative) Urine Nitrite Negative (Negative) Urine Bilirubin Negative (Negative) Urine Urobilinogen <2.0 (<2.0) mg/dL Ur Leukocyte Esterase Trace H (Negative) Urine WBC 4 (0-5) /hpf Ur Squamous Epith Cells 1 (0-4) /hpf Urine Bacteria Many H (None) /hpf Urine Mucus Moderate H (None) /hpf Blood Type Blood Type Recheck - Radiology Data Radiology results: report reviewed US shows 16 by 8mm subchorionic fluid collection consistent with hemorrhage. Single IUP measuring 7 weeks and 6 days. No adnexal masses. Disposition Clinical Impression: Diarrhea, 7 weeks gestation of , UTI (urinary tract infection) Disposition: HOME SELF-CARE Condition: Good Instructions: (ED), Acute Diarrhea (ED) Additional Instructions: Denies rest, increase fluids. [place] diet. Follow-up with primary care provider. Return to the emergency department if any alarming signs or symptoms occur. Prescriptions: Cephalexin [Keflex] 500 mg PO Q12HR #10 cap Referrals: Josh Bach MD [Primary Care Provider] - 1-2 days Time of Disposition: 18:42
--- NOTE | 2017-08-03 18:37 | US ---
EXAMINATION TYPE: US OB <= 14 wk fetus DATE OF EXAM: 08/03/2017 COMPARISON: NONE CLINICAL HISTORY: Pain. Patient stated has right to midline pelvic pain,fever; EXAM PERFORMED: Transabdominal (TA) as patient refused TV US. EXAM MEASUREMENTS: GESTATIONAL AGE / DATING Physician Established: Not yet established Dates by LMP: (7 weeks/4 days) EDC: 03/18/2018 Dates by First Scan: No previous; this is first scan Dates by Current Scan for: (7 weeks/6 days) EDC: 03/16/2018 MATERNAL ANATOMY Uterus: 11.2 x 5.8 x 5.6cm ; retroverted Right Ovary: 2.6 x 1.9 x 1.3cm Left Ovary: 3.8 x 3.0 x 2.1cm Post CDS / Adnexa: wnl Presence of free fluid: no Presence of corpus luteal cyst: not seen Presence of subchorionic bleed: yes, complex hypoechoic area seen inferior to gestational sac = 0.9 x 1.6 x 1.2cm. GESTATION / SURVEY CRL: 1.5cm(7 weeks/6 days) Yolk Sac (normal less than 6mm): 2.2mm Heart Rate: 166 bpm Rhythm: Normal IUP: Viable IUP Date of LMP: 06/11/2017 Beta HcG (if available): NA Single, live IUP,7 weeks/6 days, EDC: 03/16/2018, HR 166bpm; subchorionic bleed is noted inferiorly. IMPRESSION: There is a 16 x 9 mm subchorionic fluid collection consistent with hemorrhage. Single living intrauterine fetus. The gestational age is 7 weeks 6 days. No adnexal mass.
[2017-08-03 19:03] VITALS: BP 105/55; PULSE 83; TEMP 98.7
== END 2017-08-03 19:01 | disposition home or self-care (01) ==
LOC: EC 14:23
DX: O23.41 Unspecified infection of urinary tract in pregnancy, first trimester (principal); O99.89 Other specified diseases and conditions complicating pregnancy, childbirth and the puerperium; R19.7 Diarrhea, unspecified; Z87.891 Personal history of nicotine dependence; Z79.899 Other long term (current) drug therapy; Z88.1 Allergy status to other antibiotic agents; Z3A.01 Less than 8 weeks gestation of pregnancy; Z53.20 Procedure and treatment not carried out because of patient's decision for unspecified reasons
CPT/HCPCS: 36415; 76801; 80053; 81001; 84702; 85025; 86900; 86901; 99284

== ENCOUNTER 2017-08-20 17:21 | Emergency (ER) | payer OTHER ==
[2017-08-20 18:08] LABS: Basophils % (A) 0 %; Eosinophils % (A) 1 %; HCT 35.3 % (34.0-46.0); HGB 12.3 gm/dL (11.4-16.0); Lymphocytes # (A) 0.9 k/uL (1.0-4.8); Lymphocytes % (A) 14 %; MCH 31.1 pg (25.0-35.0); MCHC 34.9 g/dL (31.0-37.0); Mean Platelet Volume 9.2; Monocytes # (A) 0.3 k/uL (0-1.0); Monocytes % (A) 5 %; Neutrophils # (A) 4.8 k/uL (1.3-7.7); Neutrophils % (A) 79 %; Platelet Count 124 k/uL (150-450); RBC 3.96 m/uL (3.80-5.40); RDW 13.4 % (11.5-15.5); WBC 6.1 k/uL (3.8-10.6)
[2017-08-20 18:18] LABS: ALT 17 U/L (9-52); AST 18 U/L (14-36); Albumin 4.2 g/dL (3.5-5.0); Alkaline Phosphatase 47 U/L (38-126); Anion Gap 10 mmol/L; Blood Urea Nitrogen 8 mg/dL (7-17); Calcium 9.6 mg/dL (8.4-10.2); Carbon Dioxide 24 mmol/L (22-30); Chloride 105 mmol/L (98-107); Glucose 83 mg/dL (74-99); Magnesium 1.9 mg/dL (1.6-2.3); Potassium 3.9 mmol/L (3.5-5.1); Sodium 139 mmol/L (137-145); Total Bilirubin 0.5 mg/dL (0.2-1.3); Total Protein 6.8 g/dL (6.3-8.2)
[2017-08-20 18:20] LABS: Creatine Kinase 46 U/L (30-135); Partial Thromboplastin Time 23.1 sec (22.0-30.0)
[2017-08-20 18:23] LABS: Prothrombin Time 9.7 sec (9.0-12.0)
--- NOTE | 2017-08-20 18:30 | ED ---
General Adult HPI - General Chief complaint: Arrhythmia/Palpitations Stated complaint: heart palpitations, 10 weeks Time Seen by Provider: 08/20/17 18:09 Source: patient, RN notes reviewed Mode of arrival: ambulatory Limitations: no limitations - History of Present Illness Initial comments: 31-year-old female presents to the emergency department for a chief complaint of palpitations. Patient states she feels as if her heart is fluttering. These palpitations started about 5 weeks ago. They occur about every hour. Patient states they occur when she is resting for the most part. She also notices them when she drinks water. She has a history of GERD. Patient denies shortness of breath or loss of consciousness when these occur. Patient is 11 weeks and thinks this could be related. She had similar palpitations with her first that started at about 30 weeks. She also used to get them a few days before her period. Patient states her visiting nurse wanted her to have labs drawn and thought she should get checked for any problems. Patient has an appointment with her OB tomorrow. Patient denies any chest pain , abdominal pain, nausea or vomiting. Patient is otherwise feeling fine besides the fluttering she feels in her chest. - Related Data Home Medications Medication Instructions Recorded Confirmed Pnv No.95/Ferrous Fum/Folic AC 1 tab PO DAILY 08/03/17 08/20/17 [ Multivitamin Tablet] Allergies Allergy/AdvReac Type Severity Reaction Status Date / Time sulfamethoxazole Allergy Rash/Hives Verified 08/20/17 18:24 [From Bactrim] trimethoprim [From Bactrim] Allergy Rash/Hives Verified 08/20/17 18:24 Review of Systems ROS Statement: Those systems with pertinent positive or pertinent negative responses have been documented in the HPI. ROS Other: All systems not noted in ROS Statement are negative. Past Medical History Past Medical History: GERD/Reflux Additional Past Medical History / Comment(s): rectal fissure, miscarriage, hypoglycemia History of Any Multi-Drug Resistant Organisms: None Reported Past Surgical History: No Surgical Hx Reported Past Anesthesia/Blood Transfusion Reactions: No Reported Reaction Past Psychological History: No Psychological Hx Reported Smoking Status: Former smoker Past Alcohol Use History: None Reported Past Drug Use History: None Reported - Past Family History Mother Family Medical History: No Reported History General Exam Limitations: no limitations Head exam: Present: atraumatic, normocephalic, normal inspection Neck exam: Present: normal inspection. Absent: tenderness, meningismus, lymphadenopathy Respiratory exam: Present: normal lung sounds bilaterally. Absent: respiratory distress, wheezes, rales, rhonchi, stridor Cardiovascular Exam: Present: regular rate, normal rhythm, normal heart sounds. Absent: systolic murmur, diastolic murmur, rubs, gallop, clicks GI/Abdominal exam: Present: soft, normal bowel sounds. Absent: distended, tenderness, guarding, rebound, rigid Extremities exam: Present: normal capillary refill. Absent: pedal edema, joint swelling, calf tenderness Neurological exam: Present: alert, oriented X3, CN II-XII intact Psychiatric exam: Present: normal affect, normal mood Course Vital Signs 08/20/17 08/20/17 08/20/17 17:31 18:55 18:59 Temperature 97.1 F L 98.2 F Pulse Rate 83 80 65 Respiratory 18 16 16 Rate Blood Pressure 116/73 104/57 143/102 O2 Sat by Pulse 99 100 Oximetry EKG Findings - EKG Comments: EKG Findings:: Sinus rhythm, ventricular rate 67, NH interval 110, QRS duration 86 Medical Decision Making - Medical Decision Making 31-year-old female presents to the emergency department today for a fluttering in her chest that she thinks is heart palpitations. Patient is 11 weeks . Patient had similar symptoms when she was last time which started around 30 weeks. Patient believes they are hormone related. However she wanted to get her labs drawn to make sure nothing more serious was going on. Cardiac labs were ordered. CBC and CMP unremarkable. PTT/INR within normal limits. No abnormalities noted on urinalysis. EKG showed sinus rhythm. Ventricular rate 67. Vitals are within normal limits. Urine did show rare bacteria. However patient just finished an antibiotic for UTI. We will send the urine for culture and treat her if it is needed. Spoke with patient and she feels much better having these tests done. She believes they're hormone related. She has no shortness of breath or chest pain. Patient will follow up with primary care provider and OB on Sunday. - Lab Data Result diagrams: 08/20/17 17:53 08/20/17 17:53 Lab Results 08/20/17 08/20/17 08/20/17 Range/Units 17:53 17:53 17:53 WBC 6.1 (3.8-10.6) k/uL RBC 3.96 (3.80-5.40) m/uL Hgb 12.3 (11.4-16.0) gm/dL Hct 35.3 (34.0-46.0) % MCV 89.0 (80.0-100.0) fL MCH 31.1 (25.0-35.0) pg MCHC 34.9 (31.0-37.0) g/dL RDW 13.4 (11.5-15.5) % Plt Count 124 L (150-450) k/uL Neutrophils % 79 % Lymphocytes % 14 % Monocytes % 5 % Eosinophils % 1 % Basophils % 0 % Neutrophils # 4.8 (1.3-7.7) k/uL Lymphocytes # 0.9 L (1.0-4.8) k/uL Monocytes # 0.3 (0-1.0) k/uL Eosinophils # 0.0 (0-0.7) k/uL Basophils # 0.0 (0-0.2) k/uL PT (9.0-12.0) sec INR (<1.2) APTT (22.0-30.0) sec Sodium 139 (137-145) mmol/L Potassium 3.9 (3.5-5.1) mmol/L Chloride 105 (98-107) mmol/L Carbon Dioxide 24 (22-30) mmol/L Anion Gap 10 mmol/L BUN 8 (7-17) mg/dL Creatinine 0.50 L (0.52-1.04) mg/dL Est GFR (CKD-EPI)AfAm >90 (>60 ml/min/1.73 sqM) Est GFR (CKD-EPI)NonAf >90 (>60 ml/min/1.73 sqM) Glucose 83 (74-99) mg/dL Calcium 9.6 (8.4-10.2) mg/dL Magnesium 1.9 (1.6-2.3) mg/dL Total Bilirubin 0.5 (0.2-1.3) mg/dL AST 18 (14-36) U/L ALT 17 (9-52) U/L Alkaline Phosphatase 47 (38-126) U/L Total Creatine Kinase 46 (30-135) U/L CK-MB (CK-2) <0.2 (0.0-2.4) ng/mL CK-MB (CK-2) Rel Index Troponin I <0.012 (0.000-0.034) ng/mL Total Protein 6.8 (6.3-8.2) g/dL Albumin 4.2 (3.5-5.0) g/dL Urine Color Urine Appearance (Clear) Urine pH (5.0-8.0) Ur Specific [place] (1.001-1.035) Urine Protein (Negative) Urine Glucose (UA) (Negative) Urine Blood (Negative) Urine Nitrite (Negative) Urine Bilirubin (Negative) Urine Urobilinogen (<2.0) mg/dL Ur Leukocyte Esterase (Negative) Urine RBC (0-5) /hpf Urine WBC (0-5) /hpf Ur Squamous Epith Cells (0-4) /hpf Urine Bacteria (None) /hpf Urine Mucus (None) /hpf 08/20/17 08/20/17 Range/Units 17:53 19:33 WBC (3.8-10.6) k/uL RBC (3.80-5.40) m/uL Hgb (11.4-16.0) gm/dL Hct (34.0-46.0) % MCV (80.0-100.0) fL MCH (25.0-35.0) pg MCHC (31.0-37.0) g/dL RDW (11.5-15.5) % Plt Count (150-450) k/uL Neutrophils % % Lymphocytes % % Monocytes % % Eosinophils % % Basophils % % Neutrophils # (1.3-7.7) k/uL Lymphocytes # (1.0-4.8) k/uL Monocytes # (0-1.0) k/uL Eosinophils # (0-0.7) k/uL Basophils # (0-0.2) k/uL PT 9.7 (9.0-12.0) sec INR 1.0 (<1.2) APTT 23.1 (22.0-30.0) sec Sodium (137-145) mmol/L Potassium (3.5-5.1) mmol/L Chloride (98-107) mmol/L Carbon Dioxide (22-30) mmol/L Anion Gap mmol/L BUN (7-17) mg/dL Creatinine (0.52-1.04) mg/dL Est GFR (CKD-EPI)AfAm (>60 ml/min/1.73 sqM) Est GFR (CKD-EPI)NonAf (>60 ml/min/1.73 sqM) Glucose (74-99) mg/dL Calcium (8.4-10.2) mg/dL Magnesium (1.6-2.3) mg/dL Total Bilirubin (0.2-1.3) mg/dL AST (14-36) U/L ALT (9-52) U/L Alkaline Phosphatase (38-126) U/L Total Creatine Kinase (30-135) U/L CK-MB (CK-2) (0.0-2.4) ng/mL CK-MB (CK-2) Rel Index Troponin I (0.000-0.034) ng/mL Total Protein (6.3-8.2) g/dL Albumin (3.5-5.0) g/dL Urine Color Yellow Urine Appearance Cloudy H (Clear) Urine pH 6.5 (5.0-8.0) Ur Specific [place] 1.020 (1.001-1.035) Urine Protein Negative (Negative) Urine Glucose (UA) Negative (Negative) Urine Blood Negative (Negative) Urine Nitrite Negative (Negative) Urine Bilirubin Negative (Negative) Urine Urobilinogen <2.0 (<2.0) mg/dL Ur Leukocyte Esterase Moderate H (Negative) Urine RBC 1 (0-5) /hpf Urine WBC 3 (0-5) /hpf Ur Squamous Epith Cells 7 H (0-4) /hpf Urine Bacteria Rare H (None) /hpf Urine Mucus Rare H (None) /hpf Disposition Clinical Impression: Palpitations Disposition: HOME SELF-CARE Condition: Good Instructions: Palpitations (ED) Additional Instructions: Please follow up with OB at your scheduled appointment as discussed. Please return to the emergency department a few times. Shortness of breath, chest pain , or worsening symptoms. Referrals: Josh Bach MD [Primary Care Provider] - 1-2 days Time of Disposition: 19:41
[2017-08-20 18:33] LABS: Creatine Kinase MB <0.2 ng/mL (0.0-2.4); Troponin I <0.012 ng/mL (0.000-0.034)
[2017-08-20 18:56] VITALS: RESP 16
[2017-08-20 19:02] VITALS: BP 143/102; PULSE 65; TEMP 98.2
[2017-08-20 19:49] LABS: Appearance,Urine Cloudy (Clear); Bacteria,Urine Rare /hpf; Bilirubin,Urine Negative (Negative); Blood,Urine Negative (Negative); Color,Urine Yellow; Glucose,Urine (UA) Negative (Negative); Ketones,Urine 2+ (Negative); Leukocyte Esterase,Urine Moderate (Negative); Mucus,Urine Rare /hpf; Nitrite,Urine Negative (Negative); PH, Urine 6.5 (5.0-8.0); Protein,Urine Negative (Negative); RBC,Urine 1 /hpf (0-5); Squamous Epithelial Cell,Urine 7 /hpf (0-4); Urobilinogen,Urine <2.0 mg/dL (<2.0); WBC,Urine 3 /hpf (0-5)
== END 2017-08-20 20:12 | disposition home or self-care (01) ==
LOC: EC 17:21
DX: O99.89 Other specified diseases and conditions complicating pregnancy, childbirth and the puerperium (principal); R00.2 Palpitations; Z87.891 Personal history of nicotine dependence; Z79.899 Other long term (current) drug therapy; Z88.1 Allergy status to other antibiotic agents; Z3A.11 11 weeks gestation of pregnancy
CPT/HCPCS: 36415; 80053; 81001; 82550; 82553; 83735; 84484; 85025; 85610; 85730; 93005; 99285

== ENCOUNTER 2017-10-03 17:23 | Outpatient (CLI) | payer OTHER ==
[2017-10-03 17:50] VITALS: BP 98/56; PULSE 86; RESP 16; TEMP 98.7
--- NOTE | 2017-10-07 10:29 | P.MSEPDOC ---
Presenting Problems - Arrival Data Date of Arrival on Unit: 10/03/17 Time of Arrival on Unit: 17:33 Mode of Transport: Ambulatory - Complaint OB-Reason for Admission/Chief Complaint: Rule Out PROM Comment: pt arrived c/o leaking of fluid when she bent over times 1. denies any active leaking of fluid at this time Medical History - Information : 6 Para: 2 Term: 2 : 0 Abortions: Spontaneous or Elective: 3 Number of Living Children: 2 - Gestational Age Gestational Age by ABEL (wks/days): 16 Weeks and 2 Days Review of Systems - Review of Systems Constitutional: No problems, Recent weight loss Breast: No problems ENT: No problems Cardiovascular: No problems Respiratory: No problems Gastrointestinal: No problems Genitourinary: No problems Musculoskeletal: No problems Neurological: No problems Skin: No problems Vital Signs - Temperature Temperature: 98.7 F Temperature Source: Oral - Pulse Right Brachial Pulse Rate: 86 Pulse Assessment Method: Automatic Cuff - Respirations Respiratory Rate: 16 Oxygen Delivery Method: Room Air - Blood Pressure Right Arm Blood Pressure: 98/56 Blood Pressure Mean: 70 Blood Pressure Source: Automatic Cuff Medical Screen Scoring (Pre) - Cervical Exam Dilation: Exam Deferred Effacement: Exam Deferred Membranes: Intact - Uterine Contractions Frequency: N/A Duration: N/A Intensity: N/A - Maternal Vital Signs Maternal Temperature: N/A Maternal Blood Pressure: N/A Signs of Preeclampsia: N/A Maternal Respirations: N/A - Pain Assessment Pain Scale Used: Numeric (1 - 10) Pain Intensity: 0 Pain Management Goal: 0 Pain Behavior: Vocalization - Maternal Trauma Maternal Trauma: N/A - Assessment Baseline FHR: 150 Position: N/A Station: N/A - Total Score Total Score (Pre): 0 Physician Notification (Post) - Physician Notified Physician Notified Date: 10/03/17 Physician Notified Time: 18:10 Spoke With: dr pereira New Order Received: Yes - Notification Comment Comment: may discharge to home undelivered. amnsiure negative Disposition - Disposition OB Disposition: Discharge to home Discharge Date: 10/03/17 Discharge Time: 18:15 I agree with the RN Medical Screening Exam: Yes Risk & Benefit of care provided described in d/c instruction: Yes Diagnosis: RELATED CONDITIONS, UNSPECIFIED, SECOND TRIMESTER
== END 2017-10-03 18:10 | disposition home or self-care (01) ==
LOC: FBPOP 17:23
PROVIDERS: ATTEND Obstetrics & Gynecology
DX: O26.92 Pregnancy related conditions, unspecified, second trimester (principal); Z3A.16 16 weeks gestation of pregnancy
CPT/HCPCS: 84112; G0463; 99213

== ENCOUNTER 2017-11-26 11:56 | Outpatient (CLI) | payer OTHER ==
[2017-11-27 00:21] VITALS: BP 107/59; PULSE 94; RESP 16; TEMP 98.4
--- NOTE | 2018-01-02 19:27 | P.MSEPDOC ---
Presenting Problems - Arrival Data Date of Arrival on Unit: 11/26/17 Time of Arrival on Unit: 11:55 - Complaint OB-Reason for Admission/Chief Complaint: Decreased Movement Comment: pt here for cramping pain with loose stools yesterday and decreased movement today Medical History - Information : 6 Para: 2 Term: 2 : 0 Abortions: Spontaneous or Elective: 3 Number of Living Children: 2 - Gestational Age Gestational Age by BAEL (wks/days): 24 Weeks and 3 Days Review of Systems - Review of Systems Constitutional: No problems Breast: No problems ENT: No problems Cardiovascular: No problems Respiratory: No problems Gastrointestinal: No problems Genitourinary: No problems Musculoskeletal: No problems Neurological: No problems Skin: No problems Vital Signs - Temperature Temperature: 98.4 F Temperature Source: Oral - Pulse Right Pulse Rate: 94 Pulse Assessment Method: Automatic Cuff - Respirations Respiratory Rate: 16 Oxygen Delivery Method: Room Air O2 Sat by Pulse Oximetry: 98 - Blood Pressure Right Arm Blood Pressure: 107/59 Blood Pressure Mean: 75 Blood Pressure Source: Automatic Cuff Medical Screen Scoring (Pre) - Cervical Exam Dilation: Exam Deferred Effacement: Exam Deferred - Uterine Contractions Frequency: N/A Duration: N/A Intensity: N/A - Maternal Vital Signs Maternal Temperature: N/A Signs of Preeclampsia: N/A Maternal Respirations: N/A - Pain Assessment Pain Location and Character: Pelvic Pain Scale Used: Numeric (1 - 10) Pain Intensity: 0 Pain Management Goal: 4 Pain Description: Shooting Pain Radiation Location: "down Crotch" Pain Frequency: many times a day Pain Duration Units: unable to time. comes suddenly Effects of Pain: hard to stand Pain Aggravating Factors: Activity - Maternal Trauma Maternal Trauma: N/A - Assessment Baseline FHR: 145 - Total Score Total Score (Pre): 0 Physician Notification (Pre) - Physician Notified Physician Notified Date: 11/27/17 Physician Notified Time: 13:00 Physician/Practitioner Notifed:: Dr Gomez Spoke With: Dr Gomez New Order Received: Yes - Notification Comment Comment: notified of pts reason for visit of sharp pains in abd while having loose stools last night and not feeling baby move as often as usual. baby very active since arrival here with frequent movement and fht 145 over 1 min. Pt now feeing movment and feels comfortable going home knowing baby is ok.pt has OB appt Wed at 2pm. order to discharge home and have pt keep appt Wed Disposition - Disposition OB Disposition: Discharge to home Discharge Date: 11/26/17 Discharge Time: 13:15 I agree with the RN Medical Screening Exam: Yes Risk & Benefit of care provided described in d/c instruction: Yes Diagnosis: DECREASED MOVEMENTS, SECOND TRIMESTER, FETUS 1
== END 2017-11-26 13:15 | disposition home or self-care (01) ==
LOC: FBPOP 11:56
PROVIDERS: ATTEND Obstetrics & Gynecology Obstetrics
DX: O36.8120 Decreased fetal movements, second trimester, not applicable or unspecified (principal); Z3A.24 24 weeks gestation of pregnancy
CPT/HCPCS: 99213

== ENCOUNTER 2018-01-31 14:18 | Outpatient (CLI) | payer OTHER ==
[2018-01-31] MEDS ORDERED: DEXTROSE 5%-LACTATED RINGERS 1,000 ML IV ONE (15:45)
[2018-01-31 16:28] VITALS: BP 121/75; PULSE 95; RESP 18; TEMP 98.5
--- NOTE | 2018-01-31 17:01 | US ---
EXAMINATION TYPE: US OB BPP wo non-stress DATE OF EXAM: 01/31/2018 COMPARISON: NONE CLINICAL HISTORY: non reactive nst. EXAM PERFORMED: Transabdominal (TA) BPP PARAMETERS: PRESENTATION: Vertex LIE: Oblique?? HEART RATE: 149 bpm RHYTHM: Normal DIONICIO: 10.5 cm DIAPHRAGM IMAGED: yes BPP SCORIN. Breathin (1 episode of breathing of 30 second duration in 30 minutes of scanning time) 2. Movement: 2 (at least 3 discrete body movements in 30 minutes) 3. Tone: 2 (1 episode of active flexion/extension of limb) 4. DIONICIO: 2 (DIONICIO index > 5cm) TOTAL SCORE: 6 / 8 Biophysical profile score is 6 out of 8.
--- NOTE | 2018-01-31 17:04 | US ---
EXAMINATION TYPE: US OB >= 14 wk fetus DATE OF EXAM: 01/31/2018 COMPARISON: None CLINICAL HISTORY: 33 week gestation- non reactive NST For EFW and DIONICIO TECHNIQUE: Transabdominal (TA) GESTATIONAL AGE / DATING Physician Established: (33 weeks/5 days) EDC: 03/16/18 Dates by LMP: (33 weeks/3 days) EDC: 03/18/18 Dates by First Scan: (33 weeks/5 days) EDC: 196240 Dates by Current Scan: (34 weeks/2 days) EDC: 03/12/18 Beta HCG (if available): SURVEY IUP: Single PLACENTA: Anterior PREVIA: No Previa DIONICIO: cm CERVICAL LENGTH (transabdominal: norm > 3.0cm): Exam for EFW and DIONICIO only BIOMETRY PRESENTATION: Vertex LIE: Oblique BPD: 9.1 cm 36 weeks / 5 days HC: 30.8 cm 34 weeks / 2 days AC: 29.5 cm 33 weeks / 4 days FL: 6.7 cm 34 weeks / 5 days ESTIMATED WEIGHT IN GRAMS: 2379 grams ESTIMATED WEIGHT IN LBS/OZ: 5 lbs. 4 oz. WEIGHT PERCENTAGE BASED ON ESTABLISHED DATES: 58% HC/AC: 1.0 Normal FL/AC: 22 Normal HEART RATE: 137 bpm RHYTHM: Normal EFW and DIONICIO within normal parameters IMPRESSION: There is satisfactory growth compared to old exam of August 03, 2017
[2018-01-31] MEDS ORDERED: BETAMET ACET-BETAMETH SOD PHOS 6 MG/ML VIAL IM SCH (17:30)
--- NOTE | 2018-03-02 09:33 | P.MSEPDOC ---
Presenting Problems - Arrival Data Date of Arrival on Unit: 01/31/18 Time of Arrival on Unit: 14:00 Mode of Transport: Portable - Complaint OB-Reason for Admission/Chief Complaint: Decreased Movement Comment: 33 5/7 wks gest Medical History - Information : 6 Para: 2 Term: 2 : 0 Abortions: Spontaneous or Elective: 3 Number of Living Children: 2 - Gestational Age Gestational Age by ABEL (wks/days): 33 Weeks and 5 Days Review of Systems - Review of Systems Constitutional: No problems Breast: No problems ENT: No problems Cardiovascular: No problems Respiratory: No problems Gastrointestinal: No problems Genitourinary: No problems Musculoskeletal: No problems Neurological: No problems Skin: No problems Vital Signs - Temperature Temperature: 98.5 F Temperature Source: Oral - Pulse Right Brachial Pulse Rate: 95 Pulse Assessment Method: Automatic Cuff - Respirations Respiratory Rate: 18 Oxygen Delivery Method: Room Air O2 Sat by Pulse Oximetry: 97 - Blood Pressure Right Arm Blood Pressure: 121/75 Blood Pressure Mean: 90 Blood Pressure Source: Automatic Cuff Medical Screen Scoring (Pre) - Cervical Exam Dilation: Exam Deferred Effacement: Exam Deferred Membranes: Intact - Uterine Contractions Frequency: N/A Duration: N/A Intensity: N/A - Maternal Vital Signs Maternal Temperature: N/A Maternal Blood Pressure: N/A Signs of Preeclampsia: N/A Maternal Respirations: N/A - Pain Assessment Pain Scale Used: Numeric (1 - 10) Pain Intensity: 0 - Maternal Trauma Maternal Trauma: N/A - Assessment Baseline FHR: 135 Heart Rate - NICHD Category: Category II (Indeterminate) = 3 Position: N/A Station: N/A - Total Score Total Score (Pre): 3 - Level of Risk Level of Risk: Low (0-5) Physician Notification (Pre) - Physician Notified Physician Notified Date: 01/31/18 Physician Notified Time: 15:15 Physician/Practitioner Notifed:: mare Spoke With: mare - Notification Comment Comment: bpp Medical Screen Scoring (Post) - Cervical Exam Dilation: Exam Deferred Effacement: Exam Deferred Membranes: Intact - Uterine Contractions Frequency: N/A Duration: N/A Intensity: N/A - Maternal Vital Signs Maternal Temperature: N/A Maternal Blood Pressure: Systolic >139 = 2 Signs of Preeclampsia: N/A Maternal Respirations: N/A - Pain Assessment Pain Scale Used: Numeric (1 - 10) Pain Intensity: 0 - Maternal Trauma Maternal Trauma: N/A - Assessment Heart Rate: 135 Heart Rate - NICHD Category: Category I (Normal) = 0 NST: Reactive Position: N/A Station: N/A - Total Score Total Score (Post): 2 - Post Treatment Level of Risk Post Treatment Level of Risk: Low (0-5) Physician Notification (Post) - Physician Notified Physician Notified Date: 01/31/18 Physician Notified Time: 17:40 Physician/Practitioner Notified:: mare New Order Received: Yes - Notification Comment Comment: discharge home. retrun tomorrow for repeat betamethasone Disposition - Disposition OB Disposition: Discharge to home Discharge Date: 01/31/18 Discharge Time: 17:50 I agree with the RN Medical Screening Exam: Yes Risk & Benefit of care provided described in d/c instruction: Yes Diagnosis: DECREASED MOVEMENTS, THIRD TRIMESTER, FETUS 1
== END 2018-01-31 17:50 | disposition home or self-care (01) ==
LOC: FBPOP 14:18
PROVIDERS: ATTEND Obstetrics & Gynecology Obstetrics
DX: O36.8130 Decreased fetal movements, third trimester, not applicable or unspecified (principal); Z3A.33 33 weeks gestation of pregnancy
CPT/HCPCS: 59025; 96360; 96361; 96372; 76805; 76819; G0463; J0702; 99214

== ENCOUNTER 2018-02-01 21:39 | Outpatient (CLI) | payer OTHER ==
[2018-02-01] MEDS ORDERED: BETAMET ACET-BETAMETH SOD PHOS 6 MG/ML VIAL IM SCH (22:00)
== END 2018-02-01 22:06 | disposition home or self-care (01) ==
LOC: FBPOP 21:39
PROVIDERS: ATTEND Obstetrics & Gynecology
DX: O26.93 Pregnancy related conditions, unspecified, third trimester (principal)
CPT/HCPCS: 96372; G0463; J0702; 99214

== ENCOUNTER 2018-02-11 13:13 | Outpatient (CLI) | payer OTHER ==
[2018-02-11 13:26] VITALS: BP 113/65; PULSE 104; TEMP 98.6
[2018-02-11 14:07] VITALS: RESP 17
--- NOTE | 2018-03-02 09:35 | P.MSEPDOC ---
Presenting Problems - Arrival Data Date of Arrival on Unit: 02/11/18 Time of Arrival on Unit: 13:13 Mode of Transport: Ambulatory - Complaint OB-Reason for Admission/Chief Complaint: NST Comment: pt here for nst, pt has been recieving weekly nsts at office due to cont decreased fm, pt reports + fm at this time, denies contraction/cramping/lof /vb, pt was unable to get into office due to scheduling conflict and was instructed to come to triage Medical History - Information : 6 Para: 2 Term: 2 : 0 Abortions: Spontaneous or Elective: 3 Number of Living Children: 2 - Gestational Age Gestational Age by ABEL (wks/days): 35 Weeks and 2 Days - History Complications: Other Comment: cont complaints of decreased movement Review of Systems - Review of Systems Constitutional: No problems Breast: No problems ENT: No problems Cardiovascular: No problems Respiratory: No problems Gastrointestinal: No problems Genitourinary: No problems Musculoskeletal: No problems Neurological: No problems Skin: No problems Vital Signs - Temperature Temperature: 98.6 F Temperature Source: Oral - Pulse Right Brachial Pulse Rate: 104 Pulse Assessment Method: Automatic Cuff - Respirations Respiratory Rate: 17 Oxygen Delivery Method: Room Air - Blood Pressure Right Arm Blood Pressure: 113/65 Blood Pressure Mean: 81 Blood Pressure Source: Automatic Cuff Medical Screen Scoring (Pre) - Cervical Exam Dilation: Exam Deferred Effacement: Exam Deferred Membranes: Intact - Uterine Contractions Frequency: N/A Duration: N/A Intensity: N/A - Maternal Vital Signs Maternal Temperature: N/A Maternal Blood Pressure: N/A Signs of Preeclampsia: N/A Maternal Respirations: N/A - Pain Assessment Pain Scale Used: Numeric (1 - 10) Pain Intensity: 0 - Maternal Trauma Maternal Trauma: N/A - Assessment Baseline FHR: 140 Heart Rate - NICHD Category: Category I (Normal) = 0 NST: Reactive Position: N/A Station: N/A - Total Score Total Score (Pre): 0 - Level of Risk Level of Risk: Low (0-5) Physician Notification (Pre) - Physician Notified Physician Notified Date: 02/11/18 Physician Notified Time: 13:51 Physician/Practitioner Notifed:: Dr Gomez Spoke With: Dr Gomez New Order Received: Yes (dc home) - Notification Comment Comment: pt ok to dc home, pt instructed per Dr Gomez's request to follow up in office later this week for repeat nst and check up, pt verbalizes understanding of need for appt this week as well as to cont to do kick counts as instructed Disposition - Disposition OB Disposition: Discharge to home, Written follow up instructions reviewed Discharge Date: 02/11/18 Discharge Time: 13:53 I agree with the RN Medical Screening Exam: Yes Risk & Benefit of care provided described in d/c instruction: Yes Diagnosis: DECREASED MOVEMENTS, THIRD TRIMESTER, FETUS 1
== END 2018-02-11 13:53 | disposition home or self-care (01) ==
LOC: FBPOP 13:13
PROVIDERS: ATTEND Obstetrics & Gynecology Obstetrics
DX: O36.8130 Decreased fetal movements, third trimester, not applicable or unspecified (principal); Z3A.35 35 weeks gestation of pregnancy
CPT/HCPCS: 59025

== ENCOUNTER 2018-02-20 21:23 | Outpatient (CLI) | payer OTHER ==
[2018-02-20 22:51] VITALS: BP 101/50; PULSE 75; RESP 16; TEMP 96.9
--- NOTE | 2018-03-02 09:39 | P.MSEPDOC ---
Presenting Problems - Arrival Data Date of Arrival on Unit: 02/20/18 Time of Arrival on Unit: 21:23 Mode of Transport: Ambulatory - Complaint OB-Reason for Admission/Chief Complaint: Possible Onset of Labor Comment: pt to triage c/o occasional cramps, just wanted to get checked out Medical History - Information : 6 Para: 2 Term: 2 : 0 Abortions: Spontaneous or Elective: 3 Number of Living Children: 2 - Gestational Age Gestational Age by ABEL (wks/days): 36 Weeks and 2 Days Review of Systems - Review of Systems Constitutional: No problems Breast: No problems ENT: No problems Cardiovascular: No problems Respiratory: No problems Gastrointestinal: No problems Genitourinary: No problems Musculoskeletal: No problems Neurological: No problems Skin: No problems Vital Signs - Temperature Temperature: 96.9 F Temperature Source: Temporal Artery Scan - Pulse Right Supine Brachial Pulse Rate: 75 Pulse Assessment Method: Automatic Cuff - Respirations Respiratory Rate: 16 Oxygen Delivery Method: Room Air O2 Sat by Pulse Oximetry: 97 - Blood Pressure Right Arm Supine Blood Pressure: 101/50 Blood Pressure Mean: 67 Blood Pressure Source: Automatic Cuff Medical Screen Scoring (Pre) - Cervical Exam Dilation: 1-3 cm = 1 Membranes: Intact - Uterine Contractions Frequency: > 5 minutes apart = 1 Duration: > 40 seconds = 2 - Maternal Vital Signs Maternal Temperature: N/A Maternal Blood Pressure: N/A Signs of Preeclampsia: N/A Maternal Respirations: N/A - Pain Assessment Pain Scale Used: Numeric (1 - 10) Pain Intensity: 0 Pain Behavior: None Exhibited - Maternal Trauma Maternal Trauma: N/A - Assessment Baseline FHR: 130 Heart Rate - NICHD Category: Category I (Normal) = 0 NST: Reactive - Total Score Total Score (Pre): 4 - Level of Risk Level of Risk: Low (0-5) Physician Notification (Pre) - Physician Notified Physician Notified Date: 02/20/18 Physician Notified Time: 22:40 Physician/Practitioner Notifed:: Dr Gomez Spoke With: Dr Gomez New Order Received: Yes - Notification Comment Comment: Discharge to home keep office appt tomorrow at 10am Disposition - Disposition OB Disposition: Discharge to home Discharge Date: 02/20/18 Discharge Time: 22:51 I agree with the RN Medical Screening Exam: Yes Risk & Benefit of care provided described in d/c instruction: Yes Diagnosis: FALSE LABOR BEFORE 37 COMPLETED WEEKS OF GEST, THIRD TRI
== END 2018-02-20 22:52 | disposition home or self-care (01) ==
LOC: FBPOP 21:23
PROVIDERS: ATTEND Obstetrics & Gynecology Obstetrics
DX: O47.03 False labor before 37 completed weeks of gestation, third trimester (principal); Z3A.36 36 weeks gestation of pregnancy
CPT/HCPCS: 59025; G0463; 99213

== ENCOUNTER 2018-03-07 13:51 | Outpatient (CLI) | payer OTHER ==
[2018-03-07 19:40] VITALS: BP 109/67; PULSE 97; RESP 16; TEMP 98.4
--- NOTE | 2018-04-30 18:30 | P.MSEPDOC ---
Presenting Problems - Arrival Data Date of Arrival on Unit: 03/07/18 Time of Arrival on Unit: 13:51 Mode of Transport: Ambulatory - Complaint OB-Reason for Admission/Chief Complaint: Possible Onset of Labor Comment: pt states is here to have her cervix checked since she woke up at 4 am and lost. mucus plug and then had period like cramping that eased up enough after a couple hours. that she slept til 10 but contratcions have continued since irregular about every 30. min. last 2 babies 41 week vag deliveries. + intercourse last 24 hours Medical History - Information : 6 Para: 2 Term: 2 : 0 Abortions: Spontaneous or Elective: 3 Number of Living Children: 2 - Gestational Age Gestational Age by ABEL (wks/days): 38 Weeks and 5 Days - History Comment: Patient Denies Complications With Review of Systems - Review of Systems Constitutional: No problems Breast: No problems ENT: No problems Cardiovascular: No problems Respiratory: No problems Gastrointestinal: No problems Genitourinary: No problems Musculoskeletal: No problems Neurological: No problems Skin: No problems Vital Signs - Temperature Temperature: 98.4 F Temperature Source: Oral - Pulse Right Pulse Oximetery Pulse Rate: 97 Pulse Assessment Method: Pulse Oximetry - Respirations Respiratory Rate: 16 Oxygen Delivery Method: Room Air O2 Sat by Pulse Oximetry: 98 - Blood Pressure Right Arm Blood Pressure: 109/67 Blood Pressure Mean: 81 Blood Pressure Source: Automatic Cuff Medical Screen Scoring (Pre) - Cervical Exam Dilation: 1-3 cm = 1 Membranes: Intact - Uterine Contractions Frequency: N/A Duration: N/A Intensity: N/A - Maternal Vital Signs Maternal Temperature: N/A Maternal Blood Pressure: N/A Signs of Preeclampsia: N/A Maternal Respirations: N/A - Pain Assessment Pain Location and Character: Abdomen Pain Scale Used: Numeric (1 - 10) Pain Intensity: 2 Pain Management Goal: 4 Pain Description: Cramping Pain Radiation Location: none Pain Frequency: since 4 am about every 30 min Pain Duration: 1 Pain Duration Units: Minutes Pain Behavior: None Exhibited Effects of Pain: none Pain Aggravating Factors: Activity - Maternal Trauma Maternal Trauma: N/A - Assessment Baseline FHR: 135 Heart Rate - NICHD Category: Category I (Normal) = 0 NST: Reactive Position: N/A Station: N/A - Total Score Total Score (Pre): 1 - Level of Risk Level of Risk: Low (0-5) Physician Notification (Pre) - Physician Notified Physician Notified Date: 03/07/18 Physician Notified Time: 15:00 Physician/Practitioner Notifed:: Dr Gomez Spoke With: Dr Gomez New Order Received: Yes - Notification Comment Comment: 1500 Dr Gomez updated reason for visit loss of mucus plug and wanting to know. if more dialated with the cramping she has had since 4 am, vag exam 1 cm thick, no vag. discharge, no pain, no contractions, cat 1 fhr, reassuring nst. discharge order received Disposition - Disposition OB Disposition: Discharge to home Discharge Date: 03/07/18 Discharge Time: 15:05 I agree with the RN Medical Screening Exam: Yes Risk & Benefit of care provided described in d/c instruction: Yes Diagnosis: FALSE LABOR AT OR AFTER 37 COMPLETED WEEKS OF GESTATION
== END 2018-03-07 15:05 | disposition home or self-care (01) ==
LOC: FBPOP 13:51
PROVIDERS: ATTEND Obstetrics & Gynecology Obstetrics
DX: O47.1 False labor at or after 37 completed weeks of gestation (principal); Z3A.38 38 weeks gestation of pregnancy
CPT/HCPCS: 59025; G0463; 99213

== ENCOUNTER 2018-03-19 11:24 | Inpatient (IN) | payer OTHER ==
[2018-03-19] MEDS ORDERED: OXYTOCIN 10 UNIT/ML 1 ML VIAL IM PRN (11:45)
[2018-03-19] MEDS ORDERED: METHYLERGONOVINE 0.2 MG/ML 1 ML AMP IM PRN (11:45)
[2018-03-19] MEDS ORDERED: OXYTOCIN 20 UNITS/1000 ML NS 1,000 ML IV SCH ×2 (11:45→16:45)
[2018-03-19] MEDS ORDERED: CARBOPROST TROMETHAMINE 250 MCG/ML 1 ML AMP IM PRN (11:45)
[2018-03-19] MEDS ORDERED: LIDOCAINE 0.5% (PF) 5 MG/ML (50 ML SDV) SQ PRN (11:45)
[2018-03-19] MEDS ORDERED: TERBUTALINE 1 MG/ML VIAL SQ PRN (11:45)
[2018-03-19] MEDS: LACTATED RINGERS 1,000 ML IV SCH ×3 (11:48→15:52)
[2018-03-19 12:05] VITALS: BMI 25.0
[2018-03-19 12:16] LABS: Basophils % (A) 0 %; Eosinophils # (A) 0.1 k/uL (0-0.7); Eosinophils % (A) 1 %; HCT 35.9 % (34.0-46.0); HGB 12.3 gm/dL (11.4-16.0); Lymphocytes # (A) 0.8 k/uL (1.0-4.8); Lymphocytes % (A) 9 %; MCH 33.9 pg (25.0-35.0); MCHC 34.4 g/dL (31.0-37.0); MCV 98.4 fL (80.0-100.0); Macrocytosis Slight; Mean Platelet Volume 9.1; Monocytes # (A) 0.4 k/uL (0-1.0); Monocytes % (A) 4 %; Neutrophils # (A) 7.8 k/uL (1.3-7.7); Neutrophils % (A) 85 %; Platelet Count 102 k/uL (150-450); RBC 3.65 m/uL (3.80-5.40); RDW 15.9 % (11.5-15.5); WBC 9.2 k/uL (3.8-10.6)
[2018-03-19 12:38] LABS: Anisocytosis (M) Present; Poikilocytosis (M) Present; Polychromasia Present
[2018-03-19] MEDS ORDERED: BUTORPHANOL 1 MG/ML 1 ML VIAL IV PRN (14:43)
[2018-03-19] MEDS ORDERED: WITCH HAZEL 1 EACH MED..PAD TOPICAL PRN (16:39)
[2018-03-19] MEDS ORDERED: SIMETHICONE 80 MG CHEWABLE PO PRN (16:39)
[2018-03-19] MEDS ORDERED: diphenhydrAMINE 50 MG CAP PO PRN (16:39)
[2018-03-19] MEDS ORDERED: LANOLIN CREAM 5 GM TUBE TOPICAL PRN (16:39)
[2018-03-19] MEDS ORDERED: ZOLPIDEM 5 MG TAB PO PRN (16:39)
[2018-03-19] MEDS ORDERED: BENZOCAINE/MENTHOL SPRAY 1 GM/SPRAY AEROSOL TOPICAL PRN (16:39)
[2018-03-19] MEDS ORDERED: diphenhydrAMINE 25 MG CAP PO PRN (16:39)
[2018-03-19] MEDS ORDERED: HYDROCORTISONE 2.5% RECTAL CREAM 30 GM TUBE RECTAL PRN (16:39)
[2018-03-19] MEDS ORDERED: diphenhydrAMINE 50 MG/ML 1 ML VIAL IVP PRN ×2 (16:39)
--- NOTE | 2018-03-19 16:45 | P.PROBDLV ---
Vaginal Delivery Note - . Vaginal Delivery Note: This is a 32-year-old 6 para 30-3 at 40 and one sevenths weeks that presented to the office today and nonreactive NST was noted. Patient was noted to have normal fluid and reassuring but no A cells. Patient was admitted to labor and delivery for induction of labor. Patient did well through labor amniotomy was performed and clear fluid was obtained. Patient did receive 1 dose of Stadol through the labor for pain control. Patient progressed to complete began pushing and had a normal spontaneous vaginal delivery of a viable male infant at 1425, weight 8 lbs. 3 oz. with Apgars of 9 and 9 at one and 5 minutes respectively. After a two-minute delayed the umbilical cord was doubly clamped and cut and delivered spontaneously intact with a three-vessel cord. Afterwards the vaginal vault was inspected and no lacerations were noted. The uterus was noted to be firm and below the umbilicus. Next Patient and tolerated delivery well and are resting comfortably
[2018-03-19] MEDS: IBUPROFEN 600 MG TAB PO PRN (17:32)
[2018-03-19 18:21] VITALS: RESP 16
[2018-03-19] MEDS: ACETAMINOPHEN TAB 325 MG TAB PO PRN (19:53)
[2018-03-19] MEDS: SENNOSIDES-DOCUSATE SODIUM 1 EACH TAB PO SCH (22:32)
[2018-03-20] MEDS: IBUPROFEN 600 MG TAB PO PRN
[2018-03-20 07:52] LABS: Anisocytosis Slight; Basophils % (A) 0 %; Eosinophils # (A) 0.1 k/uL (0-0.7); Eosinophils % (A) 1 %; HCT 32.4 % (34.0-46.0); HGB 10.8 gm/dL (11.4-16.0); Lymphocytes % (A) 10 %; MCH 33.4 pg (25.0-35.0); MCHC 33.4 g/dL (31.0-37.0); Macrocytosis Slight; Mean Platelet Volume 9.4; Monocytes # (A) 0.4 k/uL (0-1.0); Monocytes % (A) 4 %; Neutrophils # (A) 8.4 k/uL (1.3-7.7); Neutrophils % (A) 84 %; RBC 3.24 m/uL (3.80-5.40); RDW 16.1 % (11.5-15.5)
[2018-03-20 07:58] LABS: Platelet Count 95 k/uL (150-450)
[2018-03-20] MEDS: SENNOSIDES-DOCUSATE SODIUM 1 EACH TAB PO SCH (08:14)
--- NOTE | 2018-03-20 08:21 | P.PNOBGVD ---
Subjective - Subjective Principal diagnosis: day #1 status post normal spontaneous vaginal delivery Interval history: This is a 32-year-old 6 para 3023 that was admitted to labor and delivery for induction of labor yesterday 1016. Patient is doing well this morning. She is a billing and voiding without difficulty. She states her pain is well-controlled with oral Motrin. She denies concerns. Patient reports: Reports appetite normal, Reports voiding normally, Reports pain well controlled, Reports ambulating normally : doing well Objective - Latest Vital Signs Latest vital signs: Vital Signs Temp Pulse Resp BP Pulse Ox 03/20/18 08:00 98.2 F 73 16 109/65 03/20/18 04:00 98.9 F 67 16 103/52 03/20/18 00:00 98.3 F 68 16 105/63 03/19/18 18:38 98 F 77 16 114/67 03/19/18 18:08 84 16 124/72 03/19/18 17:38 86 16 121/65 03/19/18 17:23 81 16 112/58 03/19/18 17:08 83 16 116/55 03/19/18 16:53 97 16 123/62 03/19/18 16:38 97.4 F L 88 16 114/59 03/19/18 11:45 96.8 F L 71 18 117/73 100 Intake and Output 03/19/18 03/20/18 03/20/18 22:59 06:59 14:59 Intake Total 2511.95 Balance 2511.95 Intake: IV 2000 Lactated Ringers 1,000 ml 2000 @ 125 mls/hr IV .Q8H LIO Rx#:[id number] Intake, IV Titration 511.95 Amount Oxytocin 20 Units/1000 ml 511.95 Ns 1,000 ml @ 1 MILLIUNIT/MIN 3 mls/hr IV .Q24H LIO Rx#:[id number] Other: # Voids 2 1 - Exam Extremities: Present: normal, edema Abdomen: Present: normal appearance, soft Uterus: Present: firm - Labs Labs: Abnormal Lab Results - Last 24 Hours (Table) 03/19/18 03/20/18 Range/Units 11:48 07:14 RBC 3.65 L 3.24 L (3.80-5.40) m/uL Hgb 10.8 L (11.4-16.0) gm/dL Hct 32.4 L (34.0-46.0) % RDW 15.9 H 16.1 H (11.5-15.5) % Plt Count 102 L 95 L (150-450) k/uL Neutrophils # 7.8 H 8.4 H (1.3-7.7) k/uL Lymphocytes # 0.8 L (1.0-4.8) k/uL Assessment and Plan (1) Term Current Visit: Yes Status: Acute Code(s): Z34.80 - ENCOUNTER FOR SUPRVSN OF NORMAL , UNSP TRIMESTER SNOMED Code(s): 42926838 (2) Status post vaginal delivery Current Visit: Yes Status: Acute Code(s): OYM0651 - SNOMED Code(s): 000906784 Plan: Patient is doing well this morning. We will continue routine care and anticipate discharge tomorrow.
[2018-03-20] MEDS: ACETAMINOPHEN TAB 325 MG TAB PO PRN (12:11)
--- NOTE | 2018-03-20 16:53 | P.DS ---
Providers Date of admission: 03/19/18 11:24 Expected date of discharge: 03/20/18 Attending physician: Aileen Gomez Primary care physician: Stated None - Discharge Diagnosis(es) (1) Term Current Visit: Yes Status: Acute (2) Status post vaginal delivery Current Visit: Yes Status: Acute Hospital Course: This is a 32-year-old 6 para 30-3 at 40 and one sevenths weeks that presented with a nonreactive NST in the office and then sent to OB for delivery. Patient was noted to have a reassuring heart tones strep once at the hospital. Patient was admitted induction of labor was begun with Pitocin. Amniotomy was preformed and clear fluid was obtained. Patient progressed to complete had a normal spontaneous vaginal delivery of a viable male at 1425 with a weight of 8 lbs. 3 oz. and Apgars of 9 and 9 at one and 5 minutes respectively. Patient did not sustain any vaginal lacerations. Patient's course has been uneventful. On this day #1 she is ambulating and voiding without difficulty. She is tolerating a regular diet without nausea or vomiting. She denies any concerns and wishes to be discharged home at 24 hours. Plan - Discharge Summary New Discharge Prescriptions: No Action Pnv No.95/Ferrous Fum/Folic AC [ Multivitamin Tablet] 1 tab PO DAILY MDD 1 Ferrous Sulfate [Iron] 325 mg PO BID MDD 1 Discharge Medication List Pnv No.95/Ferrous Fum/Folic AC [ Multivitamin Tablet] 1 tab PO DAILY MDD 1 08/03/17 [History] Ferrous Sulfate [Iron] 325 mg PO BID MDD 1 01/31/18 [History] Follow up Appointment(s)/Referral(s): Aileen Gomez DO [Doctor of Osteopathic Medicine] - 4 Weeks Patient Instructions/Handouts: Vaginal Delivery (DC), Vaginal Delivery (GEN) Discharge Disposition: HOME SELF-CARE
[2018-03-20 17:15] VITALS: BP 122/61; PULSE 89; TEMP 98.5
== END 2018-03-20 18:55 | disposition home or self-care (01) | DRG 807 ==
LOC: 4FBP 11:24
PROVIDERS: ADMIT Obstetrics & Gynecology Obstetrics; ATTEND Obstetrics & Gynecology Obstetrics
PROC: 10E0XZZ Delivery of Products of Conception, External Approach (ICD-10-PCS; principal; 2018-03-19)
PROC: 3E033VJ Introduction of Other Hormone into Peripheral Vein, Percutaneous Approach (ICD-10-PCS; 2018-03-19)
PROC: 10907ZC Drainage of Amniotic Fluid, Therapeutic from Products of Conception, Via Natural or Artificial Opening (ICD-10-PCS; 2018-03-19)
DX: O76 Abnormality in fetal heart rate and rhythm complicating labor and delivery (principal); Z37.0 Single live birth; Z3A.40 40 weeks gestation of pregnancy
CPT/HCPCS: 85025; 86850; 86900; 86901

== ENCOUNTER 2018-03-29 13:10 | Emergency (ER) | payer OTHER ==
--- NOTE | 2018-03-29 14:44 | ED ---
General Adult HPI - General Chief complaint: Recheck/Abnormal Lab/Rx Stated complaint: Female (post 03/19/18) Time Seen by Provider: 03/29/18 14:13 Source: patient, RN notes reviewed, old records reviewed Mode of arrival: ambulatory Limitations: no limitations - History of Present Illness Initial comments: 32-year-old female presents for evaluation of bright red blood per rectum. Patient has history of both hemorrhoid and anal fissure. She states that she had an episode of several drops of bright red blood in the toilet after a large hard bowel movement. She is 6 days . . She has spontaneous vaginal delivery with no complications. No episiotomy. Patient states she has had some intermittent vaginal bleeding after the which is been typical. No significant vaginal hemorrhage. She believes that the blood today came from her rectum. She did check thoroughly. Patient is not on blood thinners. She has no chronic medical history. She denies lightheadedness, dyspnea. - Related Data Home Medications Medication Instructions Recorded Confirmed No Known Home Medications 03/29/18 03/29/18 Allergies Allergy/AdvReac Type Severity Reaction Status Date / Time sulfamethoxazole Allergy Rash/Hives Verified 03/29/18 14:09 [From Bactrim] trimethoprim [From Bactrim] Allergy Rash/Hives Verified 03/29/18 14:09 Review of Systems ROS Statement: Those systems with pertinent positive or pertinent negative responses have been documented in the HPI. ROS Other: All systems not noted in ROS Statement are negative. Past Medical History Past Medical History: GERD/Reflux Additional Past Medical History / Comment(s): rectal fissure, miscarriage, hypoglycemia History of Any Multi-Drug Resistant Organisms: None Reported Past Surgical History: No Surgical Hx Reported Past Anesthesia/Blood Transfusion Reactions: No Reported Reaction Past Psychological History: No Psychological Hx Reported Smoking Status: Current every day smoker Past Alcohol Use History: None Reported Past Drug Use History: None Reported - Past Family History Mother Family Medical History: No Reported History General Exam Limitations: no limitations General appearance: alert, in no apparent distress Head exam: Present: atraumatic, normocephalic Eye exam: Present: normal appearance, PERRL ENT exam: Present: normal exam Neck exam: Present: normal inspection. Absent: tenderness, meningismus Respiratory exam: Present: normal lung sounds bilaterally. Absent: respiratory distress, wheezes Cardiovascular Exam: Present: regular rate, normal rhythm GI/Abdominal exam: Present: soft. Absent: distended, tenderness, guarding, rebound, rigid Rectal exam: Present: normal rectal tone, hemorrhoids (External hemorrhoids noted, no active bleeding). Absent: fecal impaction, tenderness External exam: Present: normal external exam Speculum exam: Present: other (Minimal vaginal bleeding, closed cervix) By manual exam: Present: other. Absent: cervical motion tenderness, adnexal tenderness Extremities exam: Present: normal inspection. Absent: full ROM, tenderness Neurological exam: Present: alert, oriented X3, CN II-XII intact. Absent: motor sensory deficit Psychiatric exam: Present: normal affect, normal mood Skin exam: Present: warm, dry, intact Course Vital Signs 03/29/18 13:37 Temperature 98.7 F Pulse Rate 71 Respiratory 16 Rate Blood Pressure 106/73 O2 Sat by Pulse 98 Oximetry Medical Decision Making - Medical Decision Making 32-year-old female presenting with bright red blood per rectum. Patient has history of both anal fissure and hemorrhoid. She's had some intermittent vaginal bleeding and is status post vaginal delivery. No reported heavy vaginal bleeding, no clots. Today's blood came from her rectum. On exam patient does have some external hemorrhoids, there is no active bleeding. Patient denies any symptoms suggestive of anemia including no dyspnea, no lightheadedness or near syncope. Patient is instructed on symptomatically treatment of hemorrhoids. She does have an OB follow-up in the next 2-3 days. She will return with persistent rectal bleeding, or the development of heavy vaginal bleeding. Disposition Clinical Impression: Hemorrhoid Disposition: HOME SELF-CARE Condition: Good Instructions: Hemorrhoids (ED), Rectal Bleeding (ED) Is patient prescribed a controlled substance at d/c from ED?: No Referrals: Josh Bach MD [Primary Care Provider] - 1-2 days Time of Disposition: 14:44
[2018-03-29 15:01] VITALS: BP 109/71; PULSE 89; RESP 18; TEMP 98
== END 2018-03-29 14:59 | disposition home or self-care (01) ==
LOC: EC 13:10
DX: O90.89 Other complications of the puerperium, not elsewhere classified (principal); K64.4 Residual hemorrhoidal skin tags; F17.200 Nicotine dependence, unspecified, uncomplicated; Z88.2 Allergy status to sulfonamides
CPT/HCPCS: 99283

== ENCOUNTER 2018-06-25 18:51 | Emergency (ER) | payer OTHER ==
[2018-06-25 19:04] VITALS: RESP 18
[2018-06-25] MEDS ORDERED: FLUCONAZOLE 150 MG TAB PO STA (20:32)
[2018-06-25 21:06] LABS: Appearance,Urine Clear (Clear); Bilirubin,Urine Negative (Negative); Blood,Urine Negative (Negative); Color,Urine Yellow; Glucose,Urine (UA) Negative (Negative); Ketones,Urine Negative (Negative); Leukocyte Esterase,Urine Trace (Negative); Mucus,Urine Rare /hpf; Nitrite,Urine Negative (Negative); PH, Urine 6.5 (5.0-8.0); Protein,Urine Negative (Negative); RBC,Urine 1 /hpf (0-5); Squamous Epithelial Cell,Urine 2 /hpf (0-4); Urobilinogen,Urine <2.0 mg/dL (<2.0); WBC,Urine 1 /hpf (0-5)
--- NOTE | 2018-06-25 21:46 | ED ---
Female Urogenital HPI - General Chief complaint: Urogenital Stated complaint: FEMALE Time Seen by Provider: 06/25/18 19:58 Source: patient Mode of arrival: ambulatory Limitations: no limitations - History of Present Illness Initial comments: 32-year-old female patient presents to the emergency department today for evaluation of light vaginal discharge and vulvar itching. Patient states that she's been having symptoms of the last 2 days. Patient states that the vaginal discharge as a cottage cheese like. States that she has had a lot of itching. States she is having some burning with urination. Patient denies any concern for sexually transmitted infections. Denies any fevers or chills. States that she is expressing a frequent urge to urinate but denies any abdominal pain or cramping. Denies any low back pain. She denies any recent antibiotic use or history of diabetes. States that she has had a yeast infection the past and this does seem similar in symptoms. - Related Data Home Medications Medication Instructions Recorded Confirmed Dnw-Gmkb-Zuqqd Acid 1 cap PO DAILY 06/25/18 06/25/18 [-U Capsule (formulary)] Previous Rx's Medication Instructions Recorded Fluconazole [Diflucan] 150 mg PO ONCE #1 tab 06/25/18 Allergies Allergy/AdvReac Type Severity Reaction Status Date / Time sulfamethoxazole Allergy Rash/Hives Verified 06/25/18 20:27 [From Bactrim] trimethoprim [From Bactrim] Allergy Rash/Hives Verified 06/25/18 20:27 Review of Systems ROS Statement: Those systems with pertinent positive or pertinent negative responses have been documented in the HPI. ROS Other: All systems not noted in ROS Statement are negative. Past Medical History Past Medical History: GERD/Reflux Additional Past Medical History / Comment(s): rectal fissure, miscarriage, hypoglycemia History of Any Multi-Drug Resistant Organisms: None Reported Past Surgical History: No Surgical Hx Reported Past Anesthesia/Blood Transfusion Reactions: No Reported Reaction Past Psychological History: No Psychological Hx Reported Smoking Status: Current every day smoker Past Alcohol Use History: Occasional Past Drug Use History: None Reported - Past Family History Mother Family Medical History: No Reported History General Exam Limitations: no limitations General appearance: alert, in no apparent distress, other (Physical well- developed, well-nourished adult female patient in no acute distress. Vital signs upon presentation are temperature 98.4F, pulse 73, respirations 18, blood pressure 123/76, pulse ox 98% on room air.) GI/Abdominal exam: Present: soft, normal bowel sounds. Absent: distended, tenderness, guarding, rebound, rigid External exam: Present: normal external exam Speculum exam: Present: vaginal discharge (White, cottage cheese like vaginal discharge), other (Erythema to the vaginal heck) Neurological exam: Present: alert, oriented X3, CN II-XII intact Psychiatric exam: Present: normal affect, normal mood Skin exam: Present: warm, dry, intact, normal color. Absent: rash Course Vital Signs 06/25/18 06/25/18 19:01 21:50 Temperature 98.4 F 99.2 F Pulse Rate 73 63 Respiratory 18 18 Rate Blood Pressure 123/76 117/79 O2 Sat by Pulse 98 97 Oximetry Medical Decision Making - Medical Decision Making 32-year-old female patient presents to emergency department today for evaluation of vaginal discharge and itching. Physical examination did reveal a cottage cheese like discharge to the vagina. She did have some erythema to the vaginal heck. Pseudomonas was negative. Urinalysis negative for any evidence of infection. Cultures were obtained. Symptoms and findings are consistent with vaginal candidiasis. We'll treat with one dose of Diflucan here, she'll be given a prescription for repeat dose in 3 days. She is instructed to follow- up with her [facility] consultant or primary care physician for recheck as soon as possible. Return parameters were discussed in detail. She verbalizes understanding and agrees with this plan. - Lab Data Lab Results 06/25/18 06/25/18 06/25/18 Range/Units 20:34 20:34 20:34 Urine Color Yellow Urine Appearance Clear (Clear) Urine pH 6.5 (5.0-8.0) Ur Specific [place] 1.020 (1.001-1.035) Urine Protein Negative (Negative) Urine Glucose (UA) Negative (Negative) Urine Ketones Negative (Negative) Urine Blood Negative (Negative) Urine Nitrite Negative (Negative) Urine Bilirubin Negative (Negative) Urine Urobilinogen <2.0 (<2.0) mg/dL Ur Leukocyte Esterase Trace H (Negative) Urine RBC 1 (0-5) /hpf Urine WBC 1 (0-5) /hpf Ur Squamous Epith Cells 2 (0-4) /hpf Urine Mucus Rare H (None) /hpf Urine HCG, Qual Not Detected (Not Detectd) Trichomonas Ag (Rapid) Negative (Negative) Disposition Clinical Impression: Vaginal candidiasis Disposition: HOME SELF-CARE Condition: Good Instructions (If sedation given, give patient instructions): Yeast Infection ( ED) Additional Instructions: Take medications as directed. Follow-up with your primary care physician for recheck. Await culture results. Return to the emergency department immediately for any new, worsening, or concerning symptoms. Prescriptions: Fluconazole [Diflucan] 150 mg PO ONCE #1 tab Is patient prescribed a controlled substance at d/c from ED?: No Referrals: None,Stated [Primary Care Provider] - 1-2 days Time of Disposition: 21:46
[2018-06-25 21:50] VITALS: BP 117/79; PULSE 63; TEMP 99.2
[2018-06-27 09:01] LABS: C. trachomatis,PCR Negative (Neg,Equiv); Chlamydia trachomatis Source Genital; N. gonorrhoeae,PCR Negative (Neg,Equiv); Neisseria Source Genital
== END 2018-06-25 21:50 | disposition home or self-care (01) ==
LOC: EC 18:51
DX: B37.3 Candidiasis of vulva and vagina (principal); F17.200 Nicotine dependence, unspecified, uncomplicated; Z88.2 Allergy status to sulfonamides
CPT/HCPCS: 81001; 81025; 87070; 87205; 87491; 87591; 87808; 99283

== ENCOUNTER 2018-06-29 23:51 | Emergency (ER) | payer OTHER ==
--- NOTE | 2018-06-30 00:01 | ED ---
General Adult HPI - General Stated complaint: Vomiting Time Seen by Provider: 06/30/18 00:00 Source: patient Mode of arrival: EMS Limitations: no limitations - History of Present Illness Initial comments: Fely is a pleasant 32 yo female who presents to the ED via EMS for evaluation of vomiting. patient reports she was in her usual state of health yesterday morning, she did take a repeat dose of Diflucan due to a vaginal yeast infection. She reports that in the afternoon she developed some nausea and vomiting. This evening her symptoms became acutely worse, she was curled up in the restroom vomiting and having diarrhea, at which time her called EMS to bring her to the ER for evaluation. Patient concerned she may be experiencing an adverse reaction to the medication. Patient states she would have brought herself to the ER but she was unable to drive due to vomiting and diarrhea and her needed to stay home with their children. Patient states that her young children have experiencing GI illness this week as well. - Related Data Home Medications Medication Instructions Recorded Confirmed Tpo-Onjq-Wjogd Acid 1 cap PO DAILY 06/25/18 06/25/18 [-U Capsule (formulary)] Previous Rx's Medication Instructions Recorded Fluconazole [Diflucan] 150 mg PO ONCE #1 tab 06/25/18 Allergies Allergy/AdvReac Type Severity Reaction Status Date / Time sulfamethoxazole Allergy Rash/Hives Verified 06/30/18 00:01 [From Bactrim] trimethoprim [From Bactrim] Allergy Rash/Hives Verified 06/30/18 00:01 fluconazole [From Diflucan] AdvReac Nausea & Verified 06/30/18 00:01 Vomiting Review of Systems ROS Statement: Those systems with pertinent positive or pertinent negative responses have been documented in the HPI. ROS Other: All systems not noted in ROS Statement are negative. Past Medical History Past Medical History: GERD/Reflux Additional Past Medical History / Comment(s): rectal fissure, miscarriage, hypoglycemia History of Any Multi-Drug Resistant Organisms: None Reported Past Surgical History: No Surgical Hx Reported Past Anesthesia/Blood Transfusion Reactions: No Reported Reaction Past Psychological History: No Psychological Hx Reported Smoking Status: Former smoker Past Alcohol Use History: Occasional Past Drug Use History: None Reported - Past Family History Mother Family Medical History: No Reported History General Exam - General Exam Comments Initial Comments: Physical Exam GENERAL: Patient is well-developed and well-nourished. Patient is nontoxic and well- hydrated and is in no distress. HENT: Normocephalic, Atraumatic. EYES: PERRL, EOMI PULMONARY: Unlabored respirations. No audible rales rhonchi or wheezing was noted. CARDIOVASCULAR: There is a regular rate and rhythm without any murmurs gallops or rubs. ABDOMEN: Soft and nontender with normal bowel sounds. SKIN: Skin is clear with no lesions or rashes and otherwise unremarkable. : Deferred NEUROLOGIC: Patient is alert and oriented x3. Moving all extremities spontaneously MUSCULOSKELETAL: Normal extremities with adequate strength and full range of motion. No lower extremity swelling or edema. No calf tenderness. PSYCHIATRIC: Normal psychiatric evaluation. Limitations: no limitations Limitations: no limitations Course Vital Signs 06/29/18 06/30/18 23:54 01:18 Temperature 98.1 F 99.3 F Pulse Rate 85 97 Respiratory 18 17 Rate Blood Pressure 113/89 120/84 O2 Sat by Pulse 95 96 Oximetry Medical Decision Making - Medical Decision Making Patient seen and evaluated, history obtained from patient Patient with nausea and vomiting yesterday, acutely worsened during the night, concern for reaction to medication vs infectious cause as children have similar symptoms throughout the week I do not think the patient's symptoms are related to taking Diflucan, suspect it is infectious as her children have similar symptoms. Patient symptom free for 1 hour, will treat with PRN zofran Supportive care discussed All questions pertaining to care answered Patient discharged home in stable condition Disposition Clinical Impression: Nausea and vomiting Disposition: HOME SELF-CARE Instructions (If sedation given, give patient instructions): Acute Nausea and Vomiting (ED) Is patient prescribed a controlled substance at d/c from ED?: No Referrals: None,Stated [Primary Care Provider] - 1-2 days Time of Disposition: 00:39
[2018-06-30] MEDS ORDERED: ONDANSETRON 4 MG ODT STARTER PACK 2 TAB BTL PO STA (00:37)
[2018-06-30 01:23] VITALS: BP 120/84; PULSE 97; RESP 17; TEMP 99.3
== END 2018-06-30 01:22 | disposition home or self-care (01) ==
LOC: EC 23:51
DX: R11.2 Nausea with vomiting, unspecified (principal); R19.7 Diarrhea, unspecified; Z87.891 Personal history of nicotine dependence; Z88.2 Allergy status to sulfonamides; Z88.3 Allergy status to other anti-infective agents
CPT/HCPCS: 99284; S0119

== ENCOUNTER 2018-08-04 12:14 | Emergency (ER) | payer OTHER ==
[2018-08-04 12:20] VITALS: TEMP 98.6
[2018-08-04] MEDS ORDERED: SODIUM CHLORIDE 0.9% 1,000 ML IV STA ×2 (12:52)
--- NOTE | 2018-08-04 12:53 | ED ---
Arrhythmia/Palpitations HPI - General Chief Complaint: Arrhythmia/Palpitations Stated Complaint: PALPATATIONS Time Seen by Provider: 08/04/18 12:22 Source: patient, RN notes reviewed, old records reviewed Mode of arrival: ambulatory Limitations: no limitations - History of Present Illness Initial Comments: Patient is a 32-year-old female who presents for tremors today with complaints of palpitations. Patient states that she's had intermittent palpitations for the past 2 weeks. She's been under treatment stress. Patient states that she has no chest pain shortness breath nausea or vomiting. Patient states that she is a nonsmoker. - Related Data Home Medications Medication Instructions Recorded Confirmed Jzx-Wbsz-Rkylj Acid 1 cap PO DAILY 06/25/18 08/04/18 [-U Capsule (formulary)] Allergies Allergy/AdvReac Type Severity Reaction Status Date / Time sulfamethoxazole Allergy Rash/Hives Verified 08/04/18 13:40 [From Bactrim] trimethoprim [From Bactrim] Allergy Rash/Hives Verified 08/04/18 13:40 fluconazole [From Diflucan] AdvReac Nausea & Verified 08/04/18 13:40 Vomiting Review of Systems ROS Statement: Those systems with pertinent positive or pertinent negative responses have been documented in the HPI. ROS Other: All systems not noted in ROS Statement are negative. Past Medical History Past Medical History: GERD/Reflux Additional Past Medical History / Comment(s): rectal fissure, miscarriage, hypoglycemia History of Any Multi-Drug Resistant Organisms: None Reported Past Surgical History: No Surgical Hx Reported Past Anesthesia/Blood Transfusion Reactions: No Reported Reaction Past Psychological History: No Psychological Hx Reported Smoking Status: Former smoker Past Alcohol Use History: Occasional Past Drug Use History: None Reported - Past Family History Mother Family Medical History: No Reported History General Exam - General Exam Comments Initial Comments: This Patient is a 32-year-old female presents emergency department today for palpitations. She presented in no distress. Limitations: no limitations General appearance: alert, in no apparent distress Head exam: Present: atraumatic, normocephalic, normal inspection Eye exam: Present: normal appearance, PERRL, EOMI. Absent: scleral icterus, conjunctival injection, periorbital swelling ENT exam: Present: normal exam, mucous membranes moist Neck exam: Present: normal inspection. Absent: tenderness, meningismus, lymphadenopathy Respiratory exam: Present: normal lung sounds bilaterally. Absent: respiratory distress, wheezes, rales, rhonchi, stridor Cardiovascular Exam: Present: regular rate, normal rhythm, normal heart sounds. Absent: systolic murmur, diastolic murmur, rubs, gallop, clicks GI/Abdominal exam: Present: soft, normal bowel sounds. Absent: distended, tenderness, guarding, rebound, rigid Extremities exam: Present: normal inspection, full ROM, normal capillary refill. Absent: tenderness, pedal edema, joint swelling, calf tenderness Back exam: Present: normal inspection Neurological exam: Present: alert, oriented X3, CN II-XII intact Psychiatric exam: Present: normal affect, normal mood Skin exam: Present: warm, dry, intact, normal color. Absent: rash Course Vital Signs 08/04/18 12:16 Temperature 98.6 F Pulse Rate 71 Respiratory 18 Rate Blood Pressure 99/60 O2 Sat by Pulse 98 Oximetry Medical Decision Making - Medical Decision Making 32-year-old female presents today with 2 weeks of intermittent palpitations. She could have this related to stress. She recently found out that a friend today. Patient's labwork was reviewed and unremarkable. She is currently on her menstrual cycle she has significant hematuria. Patient TSH was normal. Chest x-ray is normal. EKG shows no abnormality's. Discussed the Patient may need to follow-up with primary care physician in proceed with getting a Holter monitor. Patient agrees. Avoid caffeine. All questions were answered. - Lab Data Result diagrams: 08/04/18 13:12 08/04/18 13:12 Lab Results 08/04/18 08/04/18 08/04/18 Range/Units 13:12 13:12 13:12 WBC 4.4 (3.8-10.6) k/uL RBC 4.43 (3.80-5.40) m/uL Hgb 14.1 (11.4-16.0) gm/dL Hct 42.1 (34.0-46.0) % MCV 95.1 (80.0-100.0) fL MCH 31.9 (25.0-35.0) pg MCHC 33.5 (31.0-37.0) g/dL RDW 12.6 (11.5-15.5) % Plt Count 142 L (150-450) k/uL Neutrophils % 68 % Lymphocytes % 22 % Monocytes % 6 % Eosinophils % 3 % Basophils % 0 % Neutrophils # 3.0 (1.3-7.7) k/uL Lymphocytes # 1.0 (1.0-4.8) k/uL Monocytes # 0.3 (0-1.0) k/uL Eosinophils # 0.1 (0-0.7) k/uL Basophils # 0.0 (0-0.2) k/uL PT (9.0-12.0) sec INR (<1.2) APTT (22.0-30.0) sec Sodium 141 (137-145) mmol/L Potassium 4.3 (3.5-5.1) mmol/L Chloride 107 (98-107) mmol/L Carbon Dioxide 26 (22-30) mmol/L Anion Gap 8 mmol/L BUN 15 (7-17) mg/dL Creatinine 0.56 (0.52-1.04) mg/dL Est GFR (CKD-EPI)AfAm >90 (>60 ml/min/1.73 sqM) Est GFR (CKD-EPI)NonAf >90 (>60 ml/min/1.73 sqM) Glucose 83 (74-99) mg/dL Calcium 9.3 (8.4-10.2) mg/dL Magnesium 1.8 (1.6-2.3) mg/dL Total Bilirubin 0.9 (0.2-1.3) mg/dL AST 22 (14-36) U/L ALT 33 (9-52) U/L Alkaline Phosphatase 56 (38-126) U/L Troponin I (0.000-0.034) ng/mL Total Protein 6.9 (6.3-8.2) g/dL Albumin 4.4 (3.5-5.0) g/dL TSH 1.160 (0.465-4.680) mIU/L Urine Color Yellow Urine Appearance Cloudy H (Clear) Urine pH 6.5 (5.0-8.0) Ur Specific [place] 1.020 (1.001-1.035) Urine Protein 1+ H (Negative) Urine Glucose (UA) Negative (Negative) Urine Ketones Negative (Negative) Urine Blood Large H (Negative) Urine Nitrite Negative (Negative) Urine Bilirubin Negative (Negative) Urine Urobilinogen <2.0 (<2.0) mg/dL Ur Leukocyte Esterase Moderate H (Negative) Urine RBC >182 H (0-5) /hpf Urine WBC 10 H (0-5) /hpf Ur Squamous Epith Cells 36 H (0-4) /hpf Urine Bacteria Occasional H (None) /hpf Urine Mucus Occasional H (None) /hpf Urine Opiates Screen Not Detected (NotDetected) Ur Oxycodone Screen Not Detected (NotDetected) Urine Methadone Screen Not Detected (NotDetected) Ur Propoxyphene Screen Not Detected (NotDetected) Ur Barbiturates Screen Not Detected (NotDetected) U Tricyclic Antidepress Not Detected (NotDetected) Ur Phencyclidine Scrn Not Detected (NotDetected) Ur Amphetamines Screen Not Detected (NotDetected) U Methamphetamines Scrn Not Detected (NotDetected) U Benzodiazepines Scrn Not Detected (NotDetected) Urine Cocaine Screen Not Detected (NotDetected) U Marijuana (THC) Screen Not Detected (NotDetected) 08/04/18 08/04/18 Range/Units 13:12 13:12 WBC (3.8-10.6) k/uL RBC (3.80-5.40) m/uL Hgb (11.4-16.0) gm/dL Hct (34.0-46.0) % MCV (80.0-100.0) fL MCH (25.0-35.0) pg MCHC (31.0-37.0) g/dL RDW (11.5-15.5) % Plt Count (150-450) k/uL Neutrophils % % Lymphocytes % % Monocytes % % Eosinophils % % Basophils % % Neutrophils # (1.3-7.7) k/uL Lymphocytes # (1.0-4.8) k/uL Monocytes # (0-1.0) k/uL Eosinophils # (0-0.7) k/uL Basophils # (0-0.2) k/uL PT 10.2 (9.0-12.0) sec INR 0.9 (<1.2) APTT 27.6 (22.0-30.0) sec Sodium (137-145) mmol/L Potassium (3.5-5.1) mmol/L Chloride (98-107) mmol/L Carbon Dioxide (22-30) mmol/L Anion Gap mmol/L BUN (7-17) mg/dL Creatinine (0.52-1.04) mg/dL Est GFR (CKD-EPI)AfAm (>60 ml/min/1.73 sqM) Est GFR (CKD-EPI)NonAf (>60 ml/min/1.73 sqM) Glucose (74-99) mg/dL Calcium (8.4-10.2) mg/dL Magnesium (1.6-2.3) mg/dL Total Bilirubin (0.2-1.3) mg/dL AST (14-36) U/L ALT (9-52) U/L Alkaline Phosphatase (38-126) U/L Troponin I <0.012 (0.000-0.034) ng/mL Total Protein (6.3-8.2) g/dL Albumin (3.5-5.0) g/dL TSH (0.465-4.680) mIU/L Urine Color Urine Appearance (Clear) Urine pH (5.0-8.0) Ur Specific [place] (1.001-1.035) Urine Protein (Negative) Urine Glucose (UA) (Negative) Urine Ketones (Negative) Urine Blood (Negative) Urine Nitrite (Negative) Urine Bilirubin (Negative) Urine Urobilinogen (<2.0) mg/dL Ur Leukocyte Esterase (Negative) Urine RBC (0-5) /hpf Urine WBC (0-5) /hpf Ur Squamous Epith Cells (0-4) /hpf Urine Bacteria (None) /hpf Urine Mucus (None) /hpf Urine Opiates Screen (NotDetected) Ur Oxycodone Screen (NotDetected) Urine Methadone Screen (NotDetected) Ur Propoxyphene Screen (NotDetected) Ur Barbiturates Screen (NotDetected) U Tricyclic Antidepress (NotDetected) Ur Phencyclidine Scrn (NotDetected) Ur Amphetamines Screen (NotDetected) U Methamphetamines Scrn (NotDetected) U Benzodiazepines Scrn (NotDetected) Urine Cocaine Screen (NotDetected) U Marijuana (THC) Screen (NotDetected) 08/04/18 14:36 EKG performed shows sinus rhythm with sinus arrhythmia normal EKG. Ventricular rate 69 bpm. Intervals 122 ms. QR mandaen 92 ms. QT QTc is 420/450 ms. - Radiology Data Radiology results: report reviewed Normal chest x-ray. Disposition Clinical Impression: History of palpitations Disposition: HOME SELF-CARE Condition: Good Instructions (If sedation given, give patient instructions): Heart Palpitations (ED) Additional Instructions: Follow-up with PCP. Return to emergency department if any alarming signs or symptoms occur. Patient a need Holter monitor Is patient prescribed a controlled substance at d/c from ED?: No Referrals: None,Stated [Primary Care Provider] - 1-2 days Time of Disposition: 14:37
[2018-08-04 13:25] LABS: Basophils % (A) 0 %; Eosinophils # (A) 0.1 k/uL (0-0.7); Eosinophils % (A) 3 %; HCT 42.1 % (34.0-46.0); HGB 14.1 gm/dL (11.4-16.0); Lymphocytes % (A) 22 %; MCH 31.9 pg (25.0-35.0); MCHC 33.5 g/dL (31.0-37.0); MCV 95.1 fL (80.0-100.0); Mean Platelet Volume 7.8; Monocytes # (A) 0.3 k/uL (0-1.0); Monocytes % (A) 6 %; Neutrophils % (A) 68 %; Platelet Count 142 k/uL (150-450); RBC 4.43 m/uL (3.80-5.40); RDW 12.6 % (11.5-15.5); WBC 4.4 k/uL (3.8-10.6)
--- NOTE | 2018-08-04 13:29 | XR ---
EXAMINATION TYPE: XR chest 2V DATE OF EXAM: 08/04/2018 COMPARISON: 09/07/2013 HISTORY: 32-year-old female dysrhythmia TECHNIQUE: PA and lateral views FINDINGS: Deep depth of inspiration. Cardiomediastinal silhouette, aorta, and pulmonary vasculature within norm al limits. Lungs and pleural spaces are clear. IMPRESSION: No acute cardiopulmonary process.
[2018-08-04 13:36] LABS: ALT 33 U/L (9-52); AST 22 U/L (14-36); Albumin 4.4 g/dL (3.5-5.0); Alkaline Phosphatase 56 U/L (38-126); Anion Gap 8 mmol/L; Blood Urea Nitrogen 15 mg/dL (7-17); Calcium 9.3 mg/dL (8.4-10.2); Carbon Dioxide 26 mmol/L (22-30); Chloride 107 mmol/L (98-107); Glucose 83 mg/dL (74-99); Magnesium 1.8 mg/dL (1.6-2.3); Potassium 4.3 mmol/L (3.5-5.1); Sodium 141 mmol/L (137-145); Total Bilirubin 0.9 mg/dL (0.2-1.3); Total Protein 6.9 g/dL (6.3-8.2)
[2018-08-04 13:39] LABS: Appearance,Urine Cloudy (Clear); Bacteria,Urine Occasional /hpf; Bilirubin,Urine Negative (Negative); Blood,Urine Large (Negative); Color,Urine Yellow; Glucose,Urine (UA) Negative (Negative); INR 0.9 (<1.2); Ketones,Urine Negative (Negative); Leukocyte Esterase,Urine Moderate (Negative); Mucus,Urine Occasional /hpf; Nitrite,Urine Negative (Negative); PH, Urine 6.5 (5.0-8.0); Partial Thromboplastin Time 27.6 sec (22.0-30.0); Protein,Urine 1+ (Negative); Prothrombin Time 10.2 sec (9.0-12.0); RBC,Urine >182 /hpf (0-5); Squamous Epithelial Cell,Urine 36 /hpf (0-4); Urobilinogen,Urine <2.0 mg/dL (<2.0); WBC,Urine 10 /hpf (0-5)
[2018-08-04 14:28] LABS: Amphetamine Screen,Urine Not Detected (NotDetected); Barbiturate Screen,Urine Not Detected (NotDetected); Benzodiazepines Screen,Urine Not Detected (NotDetected); Cocaine Screen,Urine Not Detected (NotDetected); Methadone Screen, Urine Not Detected (NotDetected); Opiate Screen,Urine Not Detected (NotDetected); Oxycodone Screen, Urine Not Detected (NotDetected); Phencyclidine Screen,Urine Not Detected (NotDetected); Tricyclic Antidepressant,Urine Not Detected (NotDetected); Urn Cannabinoid Scrn Not Detected (NotDetected)
[2018-08-04 15:16] VITALS: BP 126/69; PULSE 62; RESP 13
== END 2018-08-04 15:23 | disposition home or self-care (01) ==
LOC: EC 12:14
DX: R00.2 Palpitations (principal); Z87.891 Personal history of nicotine dependence; Z88.2 Allergy status to sulfonamides; Z88.1 Allergy status to other antibiotic agents; Z88.3 Allergy status to other anti-infective agents
CPT/HCPCS: 36415; 71046; 80053; 80306; 81001; 83735; 84443; 84484; 85025; 85610; 85730; 93005; 96360; 96361; 99285

== ENCOUNTER 2018-08-13 19:28 | Emergency (ER) | payer OTHER ==
[2018-08-13 19:42] VITALS: BP 116/72; PULSE 110; RESP 18; TEMP 100.9
[2018-08-13] MEDS ORDERED: ACETAMINOPHEN TAB 500 MG TAB PO STA (19:44)
[2018-08-13] MEDS ORDERED: IBUPROFEN 600 MG STARTER PACK 4 TAB BTL PO STA (19:44)
[2018-08-13] MEDS ORDERED: IBUPROFEN 600 MG TAB PO STA (20:06)
[2018-08-13] MEDS ORDERED: ONDANSETRON 4 MG ODT STARTER PACK 2 TAB BTL PO STA (20:09)
--- NOTE | 2018-08-13 20:14 | ED ---
Fever HPI - General Chief Complaint: Fever Stated Complaint: Possible flu Time Seen by Provider: 08/13/18 19:43 Source: patient, RN notes reviewed, old records reviewed Mode of arrival: ambulatory Limitations: no limitations - History of Present Illness Initial Comments: Patient is a 32-year-old female presents emergency room today with complaints of fever or chills, cough and dry heaving. Patient reports that she was exposed to people with influenza. Patient states that her symptoms started 2 days ago. Patient is concerned because her fever is not breaking. She's been dosing Tylenol every 6 hours. - Related Data Home Medications Medication Instructions Recorded Confirmed Jsb-Tvij-Mwkob Acid 1 cap PO DAILY 06/25/18 08/04/18 [-U Capsule (formulary)] Previous Rx's Medication Instructions Recorded Ibuprofen 600 mg PO TID #30 tablet 08/13/18 Ondansetron Odt [Zofran Odt] 4 mg PO Q8HR PRN #20 tab 08/13/18 Allergies Allergy/AdvReac Type Severity Reaction Status Date / Time sulfamethoxazole Allergy Rash/Hives Verified 08/13/18 19:42 [From Bactrim] trimethoprim [From Bactrim] Allergy Rash/Hives Verified 08/13/18 19:42 fluconazole [From Diflucan] AdvReac Nausea & Verified 08/13/18 19:42 Vomiting Review of Systems ROS Statement: Those systems with pertinent positive or pertinent negative responses have been documented in the HPI. ROS Other: All systems not noted in ROS Statement are negative. Past Medical History Past Medical History: GERD/Reflux Additional Past Medical History / Comment(s): rectal fissure, miscarriage, hypoglycemia History of Any Multi-Drug Resistant Organisms: None Reported Past Surgical History: No Surgical Hx Reported Past Anesthesia/Blood Transfusion Reactions: No Reported Reaction Past Psychological History: No Psychological Hx Reported Smoking Status: Former smoker Past Alcohol Use History: Occasional Past Drug Use History: None Reported - Past Family History Mother Family Medical History: No Reported History General Exam - General Exam Comments Initial Comments: 32-year-old female. Alert and oriented. No distress. General: Well appearing, well nourished, in no distress. Oriented x 3, normal mood and affect . Ambulating without difficulty. Skin: Good turgor, no rash, unusual bruising or prominent lesions Hair: Normal texture and distribution. HEENT: Head: Normocephalic, atraumatic, no visible or palpable masses, depressions, or scaring. Eyes: Visual acuity intact, conjunctiva clear, sclera non-icteric, EOM intact, PERRL. Ears: EACs clear, TMs translucent & cone of light visualized. hearing intact. Nose: No external lesions, mucosa non-inflamed, septum and turbinates normal Mouth: Mucous membranes moist, no mucosal lesions. Teeth/Gums: No obvious caries or periodontal disease. No gingival inflammation or significant resorption. Pharynx: Mucosa non-inflamed, no tonsillar hypertrophy or exudate Neck: Supple, without lesions, bruits, or adenopathy, thyroid non-enlarged and non-tender Heart: No cardiomegaly or thrills; regular rate and rhythm, no murmur or gallop Lungs: Clear to auscultation and percussion Abdomen: Bowel sounds normal, no tenderness, organomegaly, masses, or hernia Extremities: No amputations or deformities, cyanosis, edema or varicosities, peripheral pulses intact Musculoskeletal: Normal gait and station. No misalignment, asymmetry, crepitation, defects, tenderness, masses, effusions, decreased range of motion, instability, atrophy or abnormal strength or tone in the head, neck, spine, ribs, pelvis or extremities. Neurologic: CN 2-12 normal. Sensation to pain, touch, and proprioception normal. DTRs normal in upper and lower extremities. No pathologic reflexes. Psychiatric: Oriented X3, intact recent and remote memory, judgment and insight, normal mood and affect. Limitations: no limitations Course Vital Signs 08/13/18 19:37 Temperature 100.9 F H Pulse Rate 110 H Respiratory 18 Rate Blood Pressure 116/72 O2 Sat by Pulse 98 Oximetry Medical Decision Making - Medical Decision Making 32-year-old female presents returns today with fever chills body aches and 2 days. She's been exposed to influenza. Flu swab was obtained. Patient's finger concern is the fever and dry heaving. Patient was offered Tamiflu but states she does not take his concern for nausea. Patient is advised to alternate Motrin or Tylenol every 3 hours. We'll discharge the Patient for prescription for nausea medication. Patient advised to have close follow-up and strict return parameters if there is any prolonged fever or worsening cough. Disposition Clinical Impression: Influenza A Disposition: HOME SELF-CARE Condition: Good Instructions (If sedation given, give patient instructions): Fever in Adults (ED), Influenza (ED) Additional Instructions: Patient advised close follow-up with primary care physician. Alternate Motrin and Tylenol every 3 hours. Patient should return to the emergency department if any alarming signs or symptoms occur. Use the nausea medicine as prescribed. He can use breathing treatments at home. Prescriptions: Ibuprofen 600 mg PO TID #30 tablet Ondansetron Odt [Zofran Odt] 4 mg PO Q8HR PRN #20 tab PRN Reason: Nausea Is patient prescribed a controlled substance at d/c from ED?: No Referrals: Josh Bach MD [Primary Care Provider] - 1-2 days Time of Disposition: 20:12
== END 2018-08-13 20:25 | disposition home or self-care (01) ==
LOC: EC 19:28
DX: J10.1 Influenza due to other identified influenza virus with other respiratory manifestations (principal); Z88.2 Allergy status to sulfonamides; Z88.1 Allergy status to other antibiotic agents; Z88.3 Allergy status to other anti-infective agents; Z87.891 Personal history of nicotine dependence
CPT/HCPCS: 87502; 99283; S0119

== ENCOUNTER 2018-08-21 04:30 | Emergency (ER) | payer OTHER ==
[2018-08-21 04:39] VITALS: TEMP 98.7
[2018-08-21 05:39] LABS: Basophils % (A) 0 %; Eosinophils # (A) 0.1 k/uL (0-0.7); Eosinophils % (A) 1 %; HCT 40.2 % (34.0-46.0); HGB 13.6 gm/dL (11.4-16.0); Lymphocytes # (A) 0.9 k/uL (1.0-4.8); Lymphocytes % (A) 22 %; MCH 31.3 pg (25.0-35.0); MCHC 33.8 g/dL (31.0-37.0); MCV 92.8 fL (80.0-100.0); Mean Platelet Volume 8.8; Monocytes # (A) 0.3 k/uL (0-1.0); Monocytes % (A) 7 %; Neutrophils # (A) 2.8 k/uL (1.3-7.7); Neutrophils % (A) 69 %; Platelet Count 126 k/uL (150-450); RBC 4.34 m/uL (3.80-5.40); RDW 12.5 % (11.5-15.5); WBC 4.1 k/uL (3.8-10.6)
--- NOTE | 2018-08-21 05:45 | ED ---
General Adult HPI - General Chief complaint: Abdominal Pain Stated complaint: Abd Pain/GI Bleed Time Seen by Provider: 08/21/18 04:44 Source: patient Mode of arrival: ambulatory Limitations: no limitations - History of Present Illness Initial comments: Fely is a 32-year-old female presents the emergency department today for evaluation of orangeish discoloration to her diarrhea. Patient reports that last week she was treated for influenza, she declined Tamiflu was treated symptomatically. She reports she's been feeling better. She reports that she woke around 4 AM with the urge to have a bowel movement, patient states that this is pretty common for her. She states that she had a loose stool which is not uncommon for her. Upon looking at the stool she noted that it seemed to be orange in color and there seemed to be some orange floating particles this was something she had never seen before so she decided come to the ER for evaluation. Patient reports she had some mild crampy abdominal pain prior to having the diarrhea however it resolved after the bowel movement. Upon arrival in the emergency department patient had a another bowel movement and noted that it was orange however she was unable to show it to us. It does report that she had spaghetti with meat sauce for dinner last night prior to going to bed. - Related Data Home Medications Medication Instructions Recorded Confirmed Eos-Ycpo-Qxsdl Acid 1 cap PO DAILY 06/25/18 08/04/18 [-U Capsule (formulary)] Previous Rx's Medication Instructions Recorded Ibuprofen 600 mg PO TID #30 tablet 08/13/18 Ondansetron Odt [Zofran Odt] 4 mg PO Q8HR PRN #20 tab 08/13/18 Allergies Allergy/AdvReac Type Severity Reaction Status Date / Time sulfamethoxazole Allergy Rash/Hives Verified 08/21/18 04:40 [From Bactrim] trimethoprim [From Bactrim] Allergy Rash/Hives Verified 08/21/18 04:40 fluconazole [From Diflucan] AdvReac Nausea & Verified 08/21/18 04:40 Vomiting Review of Systems ROS Statement: Those systems with pertinent positive or pertinent negative responses have been documented in the HPI. ROS Other: All systems not noted in ROS Statement are negative. Past Medical History Past Medical History: GERD/Reflux Additional Past Medical History / Comment(s): rectal fissure, miscarriage, hypoglycemia, History of Any Multi-Drug Resistant Organisms: None Reported Past Surgical History: No Surgical Hx Reported Past Anesthesia/Blood Transfusion Reactions: No Reported Reaction Past Psychological History: No Psychological Hx Reported Smoking Status: Former smoker Past Alcohol Use History: Occasional Past Drug Use History: None Reported - Past Family History Mother Family Medical History: No Reported History General Exam - General Exam Comments Initial Comments: Physical Exam GENERAL: Patient is well-developed and well-nourished. Patient is nontoxic and well- hydrated and is in no distress. HENT: Normocephalic, Atraumatic. EYES: PERRL, EOMI PULMONARY: Unlabored respirations. No audible rales rhonchi or wheezing was noted. CARDIOVASCULAR: There is a regular rate and rhythm without any murmurs gallops or rubs. ABDOMEN: Soft and nontender with normal bowel sounds. SKIN: Skin is clear with no lesions or rashes and otherwise unremarkable. : Normal external genitalia Rectal exam with internal and external hemorrhoids Stool guaiac-negative NEUROLOGIC: Patient is alert and oriented x3. Moving all extremities spontaneously MUSCULOSKELETAL: Normal extremities with adequate strength and full range of motion. No lower extremity swelling or edema. No calf tenderness. PSYCHIATRIC: Normal psychiatric evaluation. Limitations: no limitations Limitations: no limitations Course Vital Signs 08/21/18 04:36 Temperature 98.7 F Pulse Rate 60 Respiratory 18 Rate Blood Pressure 106/72 O2 Sat by Pulse 99 Oximetry Medical Decision Making - Medical Decision Making was seen and evaluated history is obtained from patient and signed patient concerned about the large discoloration of her stool and concern that there may be blood Stool guaiac was negative Labs are unremarkable results were discussed with the patient, I suspect the discoloration of her stool secondary to eating spaghetti sauce for dinner last night, the patient was discharged home in stable condition. - Lab Data Result diagrams: 08/21/18 05:25 08/21/18 05:25 Lab Results 08/21/18 08/21/18 Range/Units 05:25 05:25 WBC 4.1 (3.8-10.6) k/uL RBC 4.34 (3.80-5.40) m/uL Hgb 13.6 (11.4-16.0) gm/dL Hct 40.2 (34.0-46.0) % MCV 92.8 (80.0-100.0) fL MCH 31.3 (25.0-35.0) pg MCHC 33.8 (31.0-37.0) g/dL RDW 12.5 (11.5-15.5) % Plt Count 126 L (150-450) k/uL Neutrophils % 69 % Lymphocytes % 22 % Monocytes % 7 % Eosinophils % 1 % Basophils % 0 % Neutrophils # 2.8 (1.3-7.7) k/uL Lymphocytes # 0.9 L (1.0-4.8) k/uL Monocytes # 0.3 (0-1.0) k/uL Eosinophils # 0.1 (0-0.7) k/uL Basophils # 0.0 (0-0.2) k/uL Sodium 140 (137-145) mmol/L Potassium 3.7 (3.5-5.1) mmol/L Chloride 108 H (98-107) mmol/L Carbon Dioxide 24 (22-30) mmol/L Anion Gap 8 mmol/L BUN 13 (7-17) mg/dL Creatinine 0.48 L (0.52-1.04) mg/dL Est GFR (CKD-EPI)AfAm >90 (>60 ml/min/1.73 sqM) Est GFR (CKD-EPI)NonAf >90 (>60 ml/min/1.73 sqM) Glucose 98 (74-99) mg/dL Calcium 9.1 (8.4-10.2) mg/dL Total Bilirubin 0.5 (0.2-1.3) mg/dL AST 17 (14-36) U/L ALT 29 (9-52) U/L Alkaline Phosphatase 65 (38-126) U/L Total Protein 7.0 (6.3-8.2) g/dL Albumin 4.2 (3.5-5.0) g/dL Amylase 57 (30-110) U/L Lipase 119 (23-300) U/L Disposition Clinical Impression: Diarrhea Disposition: HOME SELF-CARE Condition: Stable Instructions (If sedation given, give patient instructions): Abdominal Pain (ED) Is patient prescribed a controlled substance at d/c from ED?: No Referrals: Josh Bach MD [Primary Care Provider] - 1-2 days
[2018-08-21 05:48] LABS: ALT 29 U/L (9-52); AST 17 U/L (14-36); Albumin 4.2 g/dL (3.5-5.0); Alkaline Phosphatase 65 U/L (38-126); Amylase 57 U/L (30-110); Anion Gap 8 mmol/L; Blood Urea Nitrogen 13 mg/dL (7-17); Calcium 9.1 mg/dL (8.4-10.2); Carbon Dioxide 24 mmol/L (22-30); Chloride 108 mmol/L (98-107); Glucose 98 mg/dL (74-99); Lipase 119 U/L (23-300); Potassium 3.7 mmol/L (3.5-5.1); Sodium 140 mmol/L (137-145); Total Bilirubin 0.5 mg/dL (0.2-1.3)
[2018-08-21 06:41] VITALS: BP 107/64; PULSE 78; RESP 16
== END 2018-08-21 06:39 | disposition home or self-care (01) ==
LOC: EC 04:30
DX: R19.7 Diarrhea, unspecified (principal); Z87.891 Personal history of nicotine dependence; Z88.1 Allergy status to other antibiotic agents; Z88.2 Allergy status to sulfonamides; Z88.3 Allergy status to other anti-infective agents
CPT/HCPCS: 36415; 80053; 82150; 83690; 85025; 99284

== ENCOUNTER 2018-12-18 13:02 | Emergency (ER) | payer OTHER ==
[2018-12-18] MEDS ORDERED: SODIUM CHLORIDE 0.9% 500 ML 500 ML IV STA (13:43)
[2018-12-18 14:17] LABS: Basophils % (A) 0 %; Eosinophils # (A) 0.1 k/uL (0-0.7); Eosinophils % (A) 1 %; HCT 38.7 % (34.0-46.0); HGB 13.2 gm/dL (11.4-16.0); Lymphocytes # (A) 0.9 k/uL (1.0-4.8); Lymphocytes % (A) 17 %; MCH 31.5 pg (25.0-35.0); MCHC 34.1 g/dL (31.0-37.0); MCV 92.4 fL (80.0-100.0); Mean Platelet Volume 8.7; Monocytes # (A) 0.3 k/uL (0-1.0); Monocytes % (A) 6 %; Neutrophils # (A) 3.9 k/uL (1.3-7.7); Neutrophils % (A) 75 %; Platelet Count 147 k/uL (150-450); RBC 4.19 m/uL (3.80-5.40); RDW 14.3 % (11.5-15.5); WBC 5.1 k/uL (3.8-10.6)
[2018-12-18 14:26] LABS: African American GFR (CKD) >90 (>60 ml/min/1.73 sqM); Anion Gap 8 mmol/L; Blood Urea Nitrogen 8 mg/dL (7-17); Calcium 9.3 mg/dL (8.4-10.2); Carbon Dioxide 28 mmol/L (22-30); Chloride 104 mmol/L (98-107); Glucose 91 mg/dL (74-99); Potassium 4.1 mmol/L (3.5-5.1); Sodium 140 mmol/L (137-145)
[2018-12-18 14:31] LABS: Appearance,Urine Cloudy (Clear); Bilirubin,Urine Negative (Negative); Blood,Urine Negative (Negative); Color,Urine Yellow; Glucose,Urine (UA) Negative (Negative); Ketones,Urine Negative (Negative); Leukocyte Esterase,Urine Negative (Negative); Mucus,Urine Moderate /hpf; Nitrite,Urine Negative (Negative); Protein,Urine Trace (Negative); RBC,Urine <1 /hpf (0-5); Specific Gravity,Urine 1.027 (1.001-1.035); Squamous Epithelial Cell,Urine 12 /hpf (0-4)
--- NOTE | 2018-12-18 14:58 | ED ---
Dizziness HPI - General Chief Complaint: Dizziness Stated Complaint: dizziness Time Seen by Provider: 12/18/18 13:42 Source: patient, RN notes reviewed, old records reviewed Mode of arrival: ambulatory Limitations: no limitations - History of Present Illness Initial Comments: This is a 33-year-old female presents emergency department today for evaluation for general fatigue for the past few weeks. Patient states that she has been feeling increasingly tired. She denies any pain or other symptoms. - Related Data Previous Rx's Medication Instructions Recorded Meclizine [Antivert] 25 mg PO BID #15 tab 12/18/18 Allergies Allergy/AdvReac Type Severity Reaction Status Date / Time sulfamethoxazole Allergy Rash/Hives Verified 12/18/18 13:37 [From Bactrim] trimethoprim [From Bactrim] Allergy Rash/Hives Verified 12/18/18 13:37 fluconazole [From Diflucan] AdvReac Nausea & Verified 12/18/18 13:37 Vomiting Review of Systems ROS Statement: Those systems with pertinent positive or pertinent negative responses have been documented in the HPI. ROS Other: All systems not noted in ROS Statement are negative. Past Medical History Past Medical History: GERD/Reflux Additional Past Medical History / Comment(s): rectal fissure, miscarriage, hypoglycemia, History of Any Multi-Drug Resistant Organisms: None Reported Past Surgical History: No Surgical Hx Reported Past Anesthesia/Blood Transfusion Reactions: No Reported Reaction Past Psychological History: No Psychological Hx Reported Smoking Status: Former smoker Past Alcohol Use History: Occasional Past Drug Use History: None Reported - Past Family History Mother Family Medical History: No Reported History General Exam Limitations: no limitations Course Vital Signs 12/18/18 12/18/18 13:28 14:04 Temperature 98.9 F Pulse Rate 83 76 Respiratory 16 18 Rate Blood Pressure 124/83 120/68 O2 Sat by Pulse 98 100 Oximetry Medical Decision Making - Lab Data Result diagrams: 12/18/18 13:50 12/18/18 13:50 Lab Results 12/18/18 12/18/18 12/18/18 Range/Units 13:50 13:50 13:50 WBC 5.1 (3.8-10.6) k/uL RBC 4.19 (3.80-5.40) m/uL Hgb 13.2 (11.4-16.0) gm/dL Hct 38.7 (34.0-46.0) % MCV 92.4 (80.0-100.0) fL MCH 31.5 (25.0-35.0) pg MCHC 34.1 (31.0-37.0) g/dL RDW 14.3 (11.5-15.5) % Plt Count 147 L (150-450) k/uL Neutrophils % 75 % Lymphocytes % 17 % Monocytes % 6 % Eosinophils % 1 % Basophils % 0 % Neutrophils # 3.9 (1.3-7.7) k/uL Lymphocytes # 0.9 L (1.0-4.8) k/uL Monocytes # 0.3 (0-1.0) k/uL Eosinophils # 0.1 (0-0.7) k/uL Basophils # 0.0 (0-0.2) k/uL Sodium 140 (137-145) mmol/L Potassium 4.1 (3.5-5.1) mmol/L Chloride 104 (98-107) mmol/L Carbon Dioxide 28 (22-30) mmol/L Anion Gap 8 mmol/L BUN 8 (7-17) mg/dL Creatinine 0.61 (0.52-1.04) mg/dL Est GFR (CKD-EPI)AfAm >90 (>60 ml/min/1.73 sqM) Est GFR (CKD-EPI)NonAf >90 (>60 ml/min/1.73 sqM) Glucose 91 (74-99) mg/dL Calcium 9.3 (8.4-10.2) mg/dL Troponin I <0.012 (0.000-0.034) ng/mL Urine Color Urine Appearance (Clear) Urine pH (5.0-8.0) Ur Specific [place] (1.001-1.035) Urine Protein (Negative) Urine Glucose (UA) (Negative) Urine Ketones (Negative) Urine Blood (Negative) Urine Nitrite (Negative) Urine Bilirubin (Negative) Urine Urobilinogen (<2.0) mg/dL Ur Leukocyte Esterase (Negative) Urine RBC (0-5) /hpf Urine WBC (0-5) /hpf Ur Squamous Epith Cells (0-4) /hpf Urine Mucus (None) /hpf 12/18/18 Range/Units 13:50 WBC (3.8-10.6) k/uL RBC (3.80-5.40) m/uL Hgb (11.4-16.0) gm/dL Hct (34.0-46.0) % MCV (80.0-100.0) fL MCH (25.0-35.0) pg MCHC (31.0-37.0) g/dL RDW (11.5-15.5) % Plt Count (150-450) k/uL Neutrophils % % Lymphocytes % % Monocytes % % Eosinophils % % Basophils % % Neutrophils # (1.3-7.7) k/uL Lymphocytes # (1.0-4.8) k/uL Monocytes # (0-1.0) k/uL Eosinophils # (0-0.7) k/uL Basophils # (0-0.2) k/uL Sodium (137-145) mmol/L Potassium (3.5-5.1) mmol/L Chloride (98-107) mmol/L Carbon Dioxide (22-30) mmol/L Anion Gap mmol/L BUN (7-17) mg/dL Creatinine (0.52-1.04) mg/dL Est GFR (CKD-EPI)AfAm (>60 ml/min/1.73 sqM) Est GFR (CKD-EPI)NonAf (>60 ml/min/1.73 sqM) Glucose (74-99) mg/dL Calcium (8.4-10.2) mg/dL Troponin I (0.000-0.034) ng/mL Urine Color Yellow Urine Appearance Cloudy H (Clear) Urine pH 7.0 (5.0-8.0) Ur Specific [place] 1.027 (1.001-1.035) Urine Protein Trace H (Negative) Urine Glucose (UA) Negative (Negative) Urine Ketones Negative (Negative) Urine Blood Negative (Negative) Urine Nitrite Negative (Negative) Urine Bilirubin Negative (Negative) Urine Urobilinogen 2.0 (<2.0) mg/dL Ur Leukocyte Esterase Negative (Negative) Urine RBC <1 (0-5) /hpf Urine WBC 2 (0-5) /hpf Ur Squamous Epith Cells 12 H (0-4) /hpf Urine Mucus Moderate H (None) /hpf Disposition Clinical Impression: Dizziness, Fatigue Disposition: HOME SELF-CARE Condition: Good Instructions (If sedation given, give patient instructions): Dizziness (ED), Chronic Fatigue Syndrome (ED) Additional Instructions: Iron supplements and vitamins supplements as we have discussed. Patient should take Antivert as needed for dizziness and inner ear congestion. Have close follow-up with primary care physician. Return to the emergency department if any alarming signs or symptoms occur. Prescriptions: Meclizine [Antivert] 25 mg PO BID #15 tab Is patient prescribed a controlled substance at d/c from ED?: No Referrals: Josh Bach MD [Primary Care Provider] - 1-2 days Time of Disposition: 15:44
[2018-12-18 15:59] VITALS: TEMP 97.7
[2018-12-18 16:31] VITALS: BP 117/70; PULSE 65; RESP 18
[2018-12-19 03:29] LABS: Iron Saturation 32.46 (12.00-45.00)
== END 2018-12-18 16:29 | disposition home or self-care (01) ==
LOC: EC 13:02
DX: R53.83 Other fatigue (principal); Z88.1 Allergy status to other antibiotic agents; Z88.2 Allergy status to sulfonamides; Z87.891 Personal history of nicotine dependence
CPT/HCPCS: 36415; 80048; 81001; 83540; 83550; 84443; 84484; 85025; 93005; 96360; 96361; 99284

== ENCOUNTER 2019-11-12 21:19 | Emergency (ER) | payer OTHER ==
[2019-11-12 21:38] VITALS: BP 115/73; PULSE 70; RESP 16; TEMP 98.7
[2019-11-12 22:14] LABS: Basophils % (A) 1 %; Eosinophils # (A) 0.1 k/uL (0-0.7); Eosinophils % (A) 2 %; HCT 41.6 % (34.0-46.0); HGB 13.5 gm/dL (11.4-16.0); Lymphocytes # (A) 1.4 k/uL (1.0-4.8); Lymphocytes % (A) 28 %; MCH 31.1 pg (25.0-35.0); MCHC 32.4 g/dL (31.0-37.0); MCV 96.1 fL (80.0-100.0); Monocytes # (A) 0.3 k/uL (0-1.0); Monocytes % (A) 6 %; Neutrophils # (A) 3.2 k/uL (1.3-7.7); Neutrophils % (A) 62 %; Platelet Count 125 k/uL (150-450); RBC 4.33 m/uL (3.80-5.40); RDW 12.7 % (11.5-15.5); WBC 5.1 k/uL (3.8-10.6)
--- NOTE | 2019-11-12 22:27 | ED ---
Dizziness HPI - General Chief Complaint: Dizziness Stated Complaint: Abdominal cramping,dizziness Time Seen by Provider: 11/12/19 21:39 Source: patient Mode of arrival: ambulatory Limitations: no limitations - History of Present Illness Initial Comments: Patient is a 34-year-old female presenting to the emergency Department with complaints of a late menstrual cycle as well as feeling dizzy for the past 3 days. Patient states she is approximately 3 days late on her cycle and states she has never late. She states she took 3 tests which were all negative. She states she is also been feeling lightheaded over the past 2 days. She states she has been able to eat and drink as normal. She admits to some very mild lower abdominal cramping, which seems to be her regular menstrual cramps. She denies any vaginal bleeding, fever, chills, severe abdominal pain. She has no further complaints at this time. Upon arrival to the ER, vitals are stable. - Related Data Previous Rx's Medication Instructions Recorded Meclizine [Antivert] 25 mg PO BID #15 tab 12/18/18 Allergies Allergy/AdvReac Type Severity Reaction Status Date / Time sulfamethoxazole Allergy Rash/Hives Verified 11/12/19 21:38 [From Bactrim] trimethoprim [From Bactrim] Allergy Rash/Hives Verified 11/12/19 21:38 fluconazole [From Diflucan] AdvReac Nausea & Verified 11/12/19 21:38 Vomiting Review of Systems ROS Statement: Those systems with pertinent positive or pertinent negative responses have been documented in the HPI. ROS Other: All systems not noted in ROS Statement are negative. Past Medical History Past Medical History: GERD/Reflux Additional Past Medical History / Comment(s): rectal fissure, miscarriage, hypoglycemia, History of Any Multi-Drug Resistant Organisms: None Reported Past Surgical History: No Surgical Hx Reported Past Anesthesia/Blood Transfusion Reactions: No Reported Reaction Past Psychological History: No Psychological Hx Reported Smoking Status: Former smoker Past Alcohol Use History: Occasional Past Drug Use History: None Reported - Past Family History Mother Family Medical History: No Reported History General Exam - General Exam Comments Initial Comments: GENERAL: Well-appearing, well-nourished and in no acute distress. HEAD: Atraumatic, normocephalic. EYES: Pupils equal round and reactive to light, extraocular movements intact, sclera anicteric, conjunctiva are normal. ENT: TMs normal, nares patent, oropharynx clear without exudates. Moist mucous membranes. NECK: Normal range of motion, supple without lymphadenopathy or JVD. LUNGS: Breath sounds clear to auscultation bilaterally and equal. No wheezes rales or rhonchi. HEART: Regular rate and rhythm without murmurs, rubs or gallops. ABDOMEN: Soft, nontender, normoactive bowel sounds. No guarding, no rebound. No masses appreciated. : Deferred EXTREMITIES: Normal range of motion, no pitting or edema. No clubbing or cyanosis. NEUROLOGICAL: Cranial nerves II through XII grossly intact. Normal speech, normal gait. PSYCH: Normal mood, normal affect. SKIN: Warm, Dry, normal turgor, no rashes or lesions noted. Limitations: no limitations Course Vital Signs 11/12/19 21:35 Temperature 98.7 F Pulse Rate 70 Respiratory 16 Rate Blood Pressure 115/73 O2 Sat by Pulse 100 Oximetry Medical Decision Making - Medical Decision Making Patient is a 34-year-old female presenting with late menstrual cycle, lightheadedness for 3 days. Lab work reveals no acute abnormalities, urine shows no signs of infection, hCG is not detected. I discussed with patient this is most likely her menstrual cycle with irregularity. Patient will follow up with her [facility] [facility]. She is stable for discharge. Patient is agreement with this plan of care. Return parameters were discussed with the patient she verbalized understanding. Case discussed with Dr. Ordoñez. - Lab Data Result diagrams: 11/12/19 22:00 11/12/19 22:00 Lab Results 11/12/19 11/12/19 11/12/19 Range/Units 21:50 21:50 22:00 WBC 5.1 (3.8-10.6) k/uL RBC 4.33 (3.80-5.40) m/uL Hgb 13.5 (11.4-16.0) gm/dL Hct 41.6 (34.0-46.0) % MCV 96.1 (80.0-100.0) fL MCH 31.1 (25.0-35.0) pg MCHC 32.4 (31.0-37.0) g/dL RDW 12.7 (11.5-15.5) % Plt Count 125 L (150-450) k/uL Neutrophils % 62 % Lymphocytes % 28 % Monocytes % 6 % Eosinophils % 2 % Basophils % 1 % Neutrophils # 3.2 (1.3-7.7) k/uL Lymphocytes # 1.4 (1.0-4.8) k/uL Monocytes # 0.3 (0-1.0) k/uL Eosinophils # 0.1 (0-0.7) k/uL Basophils # 0.0 (0-0.2) k/uL Sodium (137-145) mmol/L Potassium (3.5-5.1) mmol/L Chloride (98-107) mmol/L Carbon Dioxide (22-30) mmol/L Anion Gap mmol/L BUN (7-17) mg/dL Creatinine (0.52-1.04) mg/dL Est GFR (CKD-EPI)AfAm (>60 ml/min/1.73 sqM) Est GFR (CKD-EPI)NonAf (>60 ml/min/1.73 sqM) Glucose (74-99) mg/dL Calcium (8.4-10.2) mg/dL Total Bilirubin (0.2-1.3) mg/dL AST (14-36) U/L ALT (4-34) U/L Alkaline Phosphatase (38-126) U/L Total Protein (6.3-8.2) g/dL Albumin (3.5-5.0) g/dL Urine Color Yellow Urine Appearance Cloudy H (Clear) Urine pH 7.5 (5.0-8.0) Ur Specific [place] 1.024 (1.001-1.035) Urine Protein Negative (Negative) Urine Glucose (UA) Negative (Negative) Urine Ketones Negative (Negative) Urine Blood Negative (Negative) Urine Nitrite Negative (Negative) Urine Bilirubin Negative (Negative) Urine Urobilinogen <2.0 (<2.0) mg/dL Ur Leukocyte Esterase Negative (Negative) Urine WBC 3 (0-5) /hpf Ur Squamous Epith Cells 9 H (0-4) /hpf Urine Mucus Occasional H (None) /hpf Urine HCG, Qual Not Detected (Not Detectd) 11/12/19 Range/Units 22:00 WBC (3.8-10.6) k/uL RBC (3.80-5.40) m/uL Hgb (11.4-16.0) gm/dL Hct (34.0-46.0) % MCV (80.0-100.0) fL MCH (25.0-35.0) pg MCHC (31.0-37.0) g/dL RDW (11.5-15.5) % Plt Count (150-450) k/uL Neutrophils % % Lymphocytes % % Monocytes % % Eosinophils % % Basophils % % Neutrophils # (1.3-7.7) k/uL Lymphocytes # (1.0-4.8) k/uL Monocytes # (0-1.0) k/uL Eosinophils # (0-0.7) k/uL Basophils # (0-0.2) k/uL Sodium 140 (137-145) mmol/L Potassium 3.9 (3.5-5.1) mmol/L Chloride 105 (98-107) mmol/L Carbon Dioxide 25 (22-30) mmol/L Anion Gap 10 mmol/L BUN 11 (7-17) mg/dL Creatinine 0.63 (0.52-1.04) mg/dL Est GFR (CKD-EPI)AfAm >90 (>60 ml/min/1.73 sqM) Est GFR (CKD-EPI)NonAf >90 (>60 ml/min/1.73 sqM) Glucose 91 (74-99) mg/dL Calcium 9.1 (8.4-10.2) mg/dL Total Bilirubin 0.5 (0.2-1.3) mg/dL AST 22 (14-36) U/L ALT 12 (4-34) U/L Alkaline Phosphatase 55 (38-126) U/L Total Protein 7.2 (6.3-8.2) g/dL Albumin 4.4 (3.5-5.0) g/dL Urine Color Urine Appearance (Clear) Urine pH (5.0-8.0) Ur Specific [place] (1.001-1.035) Urine Protein (Negative) Urine Glucose (UA) (Negative) Urine Ketones (Negative) Urine Blood (Negative) Urine Nitrite (Negative) Urine Bilirubin (Negative) Urine Urobilinogen (<2.0) mg/dL Ur Leukocyte Esterase (Negative) Urine WBC (0-5) /hpf Ur Squamous Epith Cells (0-4) /hpf Urine Mucus (None) /hpf Urine HCG, Qual (Not Detectd) Disposition Clinical Impression: Dehydration Disposition: HOME SELF-CARE Condition: Stable Instructions (If sedation given, give patient instructions): Dehydration (ED) Additional Instructions: Please return to the Emergency Department if symptoms worsen or any other concerns. Increase water intake next few days. Follow up with PCP or [facility]. Is patient prescribed a controlled substance at d/c from ED?: No Referrals: Josh Bach MD [Primary Care Provider] - 1-2 days
[2019-11-12 22:30] LABS: Appearance,Urine Cloudy (Clear); Bilirubin,Urine Negative (Negative); Blood,Urine Negative (Negative); Color,Urine Yellow; Glucose,Urine (UA) Negative (Negative); Ketones,Urine Negative (Negative); Leukocyte Esterase,Urine Negative (Negative); Mucus,Urine Occasional /hpf; Nitrite,Urine Negative (Negative); PH, Urine 7.5 (5.0-8.0); Protein,Urine Negative (Negative); Specific Gravity,Urine 1.024 (1.001-1.035); Squamous Epithelial Cell,Urine 9 /hpf (0-4); Urobilinogen,Urine <2.0 mg/dL (<2.0); WBC,Urine 3 /hpf (0-5)
[2019-11-12 22:32] LABS: ALT 12 U/L (4-34); AST 22 U/L (14-36); African American GFR (CKD) >90 (>60 ml/min/1.73 sqM); Albumin 4.4 g/dL (3.5-5.0); Alkaline Phosphatase 55 U/L (38-126); Anion Gap 10 mmol/L; Blood Urea Nitrogen 11 mg/dL (7-17); Calcium 9.1 mg/dL (8.4-10.2); Carbon Dioxide 25 mmol/L (22-30); Chloride 105 mmol/L (98-107); Glucose 91 mg/dL (74-99); Non-African American GFR(CKD) >90 (>60 ml/min/1.73 sqM); Potassium 3.9 mmol/L (3.5-5.1); Sodium 140 mmol/L (137-145); Total Bilirubin 0.5 mg/dL (0.2-1.3); Total Protein 7.2 g/dL (6.3-8.2)
== END 2019-11-12 22:58 | disposition home or self-care (01) ==
LOC: EC 21:19
DX: E86.0 Dehydration (principal); R10.30 Lower abdominal pain, unspecified; Z87.891 Personal history of nicotine dependence; Z88.2 Allergy status to sulfonamides; Z88.1 Allergy status to other antibiotic agents
CPT/HCPCS: 36415; 80053; 81001; 81025; 85025; 99284

== ENCOUNTER 2020-01-13 23:27 | Emergency (ER) | payer OTHER ==
[2020-01-13 23:41] VITALS: TEMP 97.8
[2020-01-13] MEDS ORDERED: SODIUM CHLORIDE 0.9% 500 ML 500 ML IV STA (23:45)
[2020-01-13 23:56] LABS: Basophils % (A) 1 %; Eosinophils # (A) 0.1 k/uL (0-0.7); Eosinophils % (A) 2 %; HCT 38.7 % (34.0-46.0); HGB 12.6 gm/dL (11.4-16.0); Lymphocytes # (A) 1.5 k/uL (1.0-4.8); Lymphocytes % (A) 27 %; MCH 31.1 pg (25.0-35.0); MCHC 32.4 g/dL (31.0-37.0); MCV 95.7 fL (80.0-100.0); Mean Platelet Volume 8.8; Monocytes # (A) 0.3 k/uL (0-1.0); Monocytes % (A) 5 %; Neutrophils # (A) 3.6 k/uL (1.3-7.7); Neutrophils % (A) 63 %; Platelet Count 127 k/uL (150-450); RBC 4.05 m/uL (3.80-5.40); RDW 12.9 % (11.5-15.5); WBC 5.6 k/uL (3.8-10.6)
[2020-01-14 00:02] LABS: Appearance,Urine Cloudy (Clear); Bilirubin,Urine Negative (Negative); Blood,Urine Negative (Negative); Color,Urine Yellow; Glucose,Urine (UA) Negative (Negative); Ketones,Urine Negative (Negative); Leukocyte Esterase,Urine Negative (Negative); Mucus,Urine Rare /hpf; Nitrite,Urine Negative (Negative); PH, Urine 6.5 (5.0-8.0); Protein,Urine Negative (Negative); RBC,Urine 1 /hpf (0-5); Specific Gravity,Urine 1.022 (1.001-1.035); Squamous Epithelial Cell,Urine 8 /hpf (0-4); Urobilinogen,Urine <2.0 mg/dL (<2.0); WBC,Urine 2 /hpf (0-5)
[2020-01-14 00:15] LABS: ALT 10 U/L (4-34); AST 24 U/L (14-36); African American GFR (CKD) >90 (>60 ml/min/1.73 sqM); Albumin 4.2 g/dL (3.5-5.0); Alkaline Phosphatase 64 U/L (38-126); Anion Gap 5 mmol/L; Blood Urea Nitrogen 14 mg/dL (7-17); Carbon Dioxide 25 mmol/L (22-30); Chloride 107 mmol/L (98-107); Glucose 97 mg/dL (74-99); Non-African American GFR(CKD) >90 (>60 ml/min/1.73 sqM); Potassium 3.9 mmol/L (3.5-5.1); Sodium 137 mmol/L (137-145); Total Bilirubin 0.4 mg/dL (0.2-1.3); Total Protein 6.5 g/dL (6.3-8.2)
--- NOTE | 2020-01-14 01:29 | ED ---
Dizziness HPI - General Chief Complaint: Dizziness Stated Complaint: Dizziness Time Seen by Provider: 01/13/20 23:30 Source: patient, EMS Mode of arrival: EMS Limitations: no limitations - History of Present Illness MD Complaint: dizziness -: hour(s) Timing: sudden onset Description: lightheadedness, off-balance History of Same: No History of Trauma: No Improves With: nothing Worsens With: nothing Associated Symptoms: denies other symptoms - Related Data Previous Rx's Medication Instructions Recorded Meclizine [Antivert] 25 mg PO BID #15 tab 12/18/18 Allergies Allergy/AdvReac Type Severity Reaction Status Date / Time sulfamethoxazole Allergy Rash/Hives Verified 11/12/19 21:38 [From Bactrim] trimethoprim [From Bactrim] Allergy Rash/Hives Verified 11/12/19 21:38 fluconazole [From Diflucan] AdvReac Nausea & Verified 11/12/19 21:38 Vomiting Review of Systems ROS Statement: Those systems with pertinent positive or pertinent negative responses have been documented in the HPI. ROS Other: All systems not noted in ROS Statement are negative. Constitutional: Denies: fever, chills, weakness Eyes: Denies: vision change Respiratory: Denies: cough, dyspnea Cardiovascular: Denies: chest pain, palpitations, edema, syncope Gastrointestinal: Denies: abdominal pain, nausea, vomiting, diarrhea, melena, hematochezia Genitourinary: Denies: dysuria, hematuria Musculoskeletal: Denies: back pain Skin: Denies: rash Neurological: Denies: headache, weakness Past Medical History Past Medical History: GERD/Reflux Additional Past Medical History / Comment(s): rectal fissure, miscarriage, hypoglycemia, History of Any Multi-Drug Resistant Organisms: None Reported Past Surgical History: No Surgical Hx Reported Past Anesthesia/Blood Transfusion Reactions: No Reported Reaction Past Psychological History: No Psychological Hx Reported Smoking Status: Never smoker Past Alcohol Use History: Occasional Past Drug Use History: None Reported - Past Family History Mother Family Medical History: No Reported History General Exam Limitations: no limitations General appearance: alert, in no apparent distress Head exam: Present: atraumatic, normocephalic Eye exam: Present: normal appearance. Absent: scleral icterus, conjunctival injection ENT exam: Present: normal oropharynx Neck exam: Present: normal inspection Respiratory exam: Present: normal lung sounds bilaterally. Absent: respiratory distress, wheezes, rales, rhonchi, stridor Cardiovascular Exam: Present: regular rate, normal rhythm, normal heart sounds. Absent: systolic murmur, diastolic murmur, rubs, gallop GI/Abdominal exam: Present: soft. Absent: distended, tenderness, guarding, rebound, rigid, mass Extremities exam: Present: normal inspection, normal capillary refill. Absent: pedal edema, calf tenderness Back exam: Present: normal inspection. Absent: CVA tenderness (R), CVA tenderness (L) Neurological exam: Present: alert, CN II-XII intact. Absent: motor sensory deficit Skin exam: Present: warm, dry, intact, normal color. Absent: rash Course Vital Signs 01/13/20 01/14/20 01/14/20 23:28 00:00 01:00 Temperature 97.8 F Pulse Rate 67 64 62 Respiratory 16 18 18 Rate Blood Pressure 139/91 140/96 112/79 O2 Sat by Pulse 100 99 98 Oximetry 01/14/20 01:37 Temperature Pulse Rate 66 Respiratory 18 Rate Blood Pressure 117/74 O2 Sat by Pulse 98 Oximetry Medical Decision Making - Lab Data Result diagrams: 01/13/20 23:40 01/13/20 23:40 Lab Results 01/13/20 01/13/20 01/13/20 Range/Units 23:40 23:40 23:56 WBC 5.6 (3.8-10.6) k/uL RBC 4.05 (3.80-5.40) m/uL Hgb 12.6 (11.4-16.0) gm/dL Hct 38.7 (34.0-46.0) % MCV 95.7 (80.0-100.0) fL MCH 31.1 (25.0-35.0) pg MCHC 32.4 (31.0-37.0) g/dL RDW 12.9 (11.5-15.5) % Plt Count 127 L (150-450) k/uL Neutrophils % 63 % Lymphocytes % 27 % Monocytes % 5 % Eosinophils % 2 % Basophils % 1 % Neutrophils # 3.6 (1.3-7.7) k/uL Lymphocytes # 1.5 (1.0-4.8) k/uL Monocytes # 0.3 (0-1.0) k/uL Eosinophils # 0.1 (0-0.7) k/uL Basophils # 0.0 (0-0.2) k/uL Sodium 137 (137-145) mmol/L Potassium 3.9 (3.5-5.1) mmol/L Chloride 107 (98-107) mmol/L Carbon Dioxide 25 (22-30) mmol/L Anion Gap 5 mmol/L BUN 14 (7-17) mg/dL Creatinine 0.67 (0.52-1.04) mg/dL Est GFR (CKD-EPI)AfAm >90 (>60 ml/min/1.73 sqM) Est GFR (CKD-EPI)NonAf >90 (>60 ml/min/1.73 sqM) Glucose 97 (74-99) mg/dL Calcium 9.0 (8.4-10.2) mg/dL Total Bilirubin 0.4 (0.2-1.3) mg/dL AST 24 (14-36) U/L ALT 10 (4-34) U/L Alkaline Phosphatase 64 (38-126) U/L Total Protein 6.5 (6.3-8.2) g/dL Albumin 4.2 (3.5-5.0) g/dL Urine Color Yellow Urine Appearance Cloudy H (Clear) Urine pH 6.5 (5.0-8.0) Ur Specific [place] 1.022 (1.001-1.035) Urine Protein Negative (Negative) Urine Glucose (UA) Negative (Negative) Urine Ketones Negative (Negative) Urine Blood Negative (Negative) Urine Nitrite Negative (Negative) Urine Bilirubin Negative (Negative) Urine Urobilinogen <2.0 (<2.0) mg/dL Ur Leukocyte Esterase Negative (Negative) Urine RBC 1 (0-5) /hpf Urine WBC 2 (0-5) /hpf Ur Squamous Epith Cells 8 H (0-4) /hpf Urine Mucus Rare H (None) /hpf Urine HCG, Qual (Not Detectd) 01/13/20 Range/Units 23:56 WBC (3.8-10.6) k/uL RBC (3.80-5.40) m/uL Hgb (11.4-16.0) gm/dL Hct (34.0-46.0) % MCV (80.0-100.0) fL MCH (25.0-35.0) pg MCHC (31.0-37.0) g/dL RDW (11.5-15.5) % Plt Count (150-450) k/uL Neutrophils % % Lymphocytes % % Monocytes % % Eosinophils % % Basophils % % Neutrophils # (1.3-7.7) k/uL Lymphocytes # (1.0-4.8) k/uL Monocytes # (0-1.0) k/uL Eosinophils # (0-0.7) k/uL Basophils # (0-0.2) k/uL Sodium (137-145) mmol/L Potassium (3.5-5.1) mmol/L Chloride (98-107) mmol/L Carbon Dioxide (22-30) mmol/L Anion Gap mmol/L BUN (7-17) mg/dL Creatinine (0.52-1.04) mg/dL Est GFR (CKD-EPI)AfAm (>60 ml/min/1.73 sqM) Est GFR (CKD-EPI)NonAf (>60 ml/min/1.73 sqM) Glucose (74-99) mg/dL Calcium (8.4-10.2) mg/dL Total Bilirubin (0.2-1.3) mg/dL AST (14-36) U/L ALT (4-34) U/L Alkaline Phosphatase (38-126) U/L Total Protein (6.3-8.2) g/dL Albumin (3.5-5.0) g/dL Urine Color Urine Appearance (Clear) Urine pH (5.0-8.0) Ur Specific [place] (1.001-1.035) Urine Protein (Negative) Urine Glucose (UA) (Negative) Urine Ketones (Negative) Urine Blood (Negative) Urine Nitrite (Negative) Urine Bilirubin (Negative) Urine Urobilinogen (<2.0) mg/dL Ur Leukocyte Esterase (Negative) Urine RBC (0-5) /hpf Urine WBC (0-5) /hpf Ur Squamous Epith Cells (0-4) /hpf Urine Mucus (None) /hpf Urine HCG, Qual Not Detected (Not Detectd) Disposition Clinical Impression: Dizziness Disposition: HOME SELF-CARE Condition: Good Instructions (If sedation given, give patient instructions): Dizziness (ED) Is patient prescribed a controlled substance at d/c from ED?: No Referrals: Malik Samayoa MD [Primary Care Provider] - 1-2 days
[2020-01-14 01:33] VITALS: RESP 18
[2020-01-14 01:39] VITALS: BP 117/74; PULSE 66
== END 2020-01-14 01:39 | disposition home or self-care (01) ==
LOC: EC 23:27
DX: R42 Dizziness and giddiness (principal); Z88.2 Allergy status to sulfonamides; Z88.1 Allergy status to other antibiotic agents; Z88.3 Allergy status to other anti-infective agents
CPT/HCPCS: 36415; 80053; 81001; 81025; 85025; 93005; 96360; 99284

== ENCOUNTER 2020-04-12 10:49 | Emergency (ER) | payer OTHER ==
[2020-04-12] MEDS ORDERED: KETOROLAC 15 MG/ML 1 ML VIAL IVP STA (12:16)
--- NOTE | 2020-04-12 12:36 | ED ---
Chest Pain HPI - General Chief Complaint: Chest Pain Stated Complaint: Chest pain Time Seen by Provider: 04/12/20 11:54 Source: patient Mode of arrival: wheelchair Limitations: no limitations - History of Present Illness Initial Comments: patient is a 34-year-old female presenting to the emergency Department with complaints of upper left-sided chest pain that has been intermittent for the last 3-4 days. she states her last 3-4 months she has been driving an older vehicle that has no power steering and has been using both of her arms very harder trying to drive the vehicle. Patient states she stopped using that vehicle about 4-5 days ago and that's when her symptoms started. The patient describes it as a burning sensation in the upper left chest area with some radiation into her left armpit. she states some increased pain with rotation of her upper torso as well.Patient states she occasionally gets some numbness into her left hand. She admits to increased pain with palpation of the area. She denies history of cardiac disease, denies history of blood clots. She's had no cough, shortness of breath, fever. She denies being a smoker. she has no further complaints at this time. Upon arrival to the ER her vitals are stable. - Related Data Home Medications Medication Instructions Recorded Confirmed No Known Home Medications 04/12/20 04/12/20 Allergies Allergy/AdvReac Type Severity Reaction Status Date / Time sulfamethoxazole Allergy Rash/Hives Verified 04/12/20 12:28 [From Bactrim] trimethoprim [From Bactrim] Allergy Rash/Hives Verified 04/12/20 12:28 fluconazole [From Diflucan] AdvReac Nausea & Verified 04/12/20 12:28 Vomiting Review of Systems ROS Statement: Those systems with pertinent positive or pertinent negative responses have been documented in the HPI. ROS Other: All systems not noted in ROS Statement are negative. EKG Findings - EKG Comments: EKG Findings:: Normal sinus rhythm with sinus arrhythmia, no signs of acute ischemia. There is Q3 T3 S1, possible changes. Ventricular rate 75, MS interval 122, QT 368. Past Medical History Past Medical History: GERD/Reflux Additional Past Medical History / Comment(s): rectal fissure, miscarriage, hypoglycemia, History of Any Multi-Drug Resistant Organisms: None Reported Past Surgical History: No Surgical Hx Reported Past Anesthesia/Blood Transfusion Reactions: No Reported Reaction Past Psychological History: No Psychological Hx Reported Smoking Status: Never smoker Past Alcohol Use History: Occasional Past Drug Use History: None Reported - Past Family History Mother Family Medical History: No Reported History General Exam - General Exam Comments Initial Comments: GENERAL: Patient is well-developed and well-nourished. Patient is nontoxic and in no acute distress. HEAD: Atraumatic, normocephalic. EYES: Pupils equal round and reactive to light, extraocular movements intact, sclera anicteric, conjunctiva are normal. Eyelids were unremarkable. ENT: TMs normal, nares patent, oropharynx clear without exudates. Moist mucous membranes. NECK: Normal range of motion, supple without lymphadenopathy or JVD. LUNGS: Unlabored respirations. Breath sounds clear to auscultation bilaterally and equal. No wheezes rales or rhonchi. HEART: Regular rate and rhythm without murmurs, rubs or gallops. ABDOMEN: Soft, nontender, normoactive bowel sounds. No guarding, no rebound. No masses appreciated. : Deferred MUSCULOSKELETAL: Normal extremities with adequate strength and normal range of motion, no pitting or edema. No clubbing or cyanosis. NEUROLOGICAL: Patient is alert and oriented x 3. Motor and sensory are also intact. Cranial nerves II through XII grossly intact. Symmetrical smile. Normal speech, normal gait. PSYCH: Normal mood, normal affect. SKIN: Warm, Dry, normal turgor, no rashes or lesions noted. Limitations: no limitations Course Vital Signs 04/12/20 04/12/20 04/12/20 10:53 11:31 12:00 Temperature 99.0 F Pulse Rate 84 80 Respiratory 18 18 Rate Blood Pressure 115/78 111/84 O2 Sat by Pulse 99 100 100 Oximetry 04/12/20 12:30 Temperature Pulse Rate 75 Respiratory 17 Rate Blood Pressure 104/72 O2 Sat by Pulse 100 Oximetry Chest Pain [facility] Patient is a 34-year-old female here for left upper chest discomfort has been intermittent for the last 3-4 days. Her vital signs are stable. She has no cardiac history. EKG revealed no acute changes. Labs reveal normal white count, and d-dimer is normal, troponin is normal. I discussed with patient that I feel like her symptoms are related to costochondritis. I recommended anti- inflammatories for her discomfort. I Did offer her Toradol the ER however she refused. I discussed these findings with her. She is stable for discharge. She'll follow up with her PCP. Discussed with Dr. Santana. Disposition Clinical Impression: Atypical chest pain, Costochondritis Disposition: HOME SELF-CARE Condition: Stable Instructions (If sedation given, give patient instructions): Costochondritis (ED) Additional Instructions: Please return to the Emergency Department if symptoms worsen or any other concerns. EKG and labs are noral today. Recommend anti-inflammatories over the next few days, such as Motrin or Aleve, as well as heat and/or ice to the area. Follow-up with PCP. Is patient prescribed a controlled substance at d/c from ED?: No Referrals: Malik Samayoa MD [Primary Care Provider] - 1-2 days
[2020-04-12 13:11] LABS: Basophils % (A) 1 %; Eosinophils % (A) 1 %; HCT 43.3 % (34.0-46.0); HGB 14.5 gm/dL (11.4-16.0); Lymphocytes % (A) 20 %; MCHC 33.4 g/dL (31.0-37.0); MCV 95.9 fL (80.0-100.0); Mean Platelet Volume 8.8; Monocytes # (A) 0.3 k/uL (0-1.0); Monocytes % (A) 6 %; Neutrophils # (A) 3.7 k/uL (1.3-7.7); Neutrophils % (A) 72 %; Platelet Count 117 k/uL (150-450); RBC 4.52 m/uL (3.80-5.40); RDW 12.7 % (11.5-15.5); WBC 5.1 k/uL (3.8-10.6)
[2020-04-12 13:21] LABS: African American GFR (CKD) >90 (>60 ml/min/1.73 sqM); Anion Gap 7 mmol/L; Blood Urea Nitrogen 10 mg/dL (7-17); Calcium 9.1 mg/dL (8.4-10.2); Carbon Dioxide 26 mmol/L (22-30); Chloride 104 mmol/L (98-107); Glucose 85 mg/dL (74-99); Non-African American GFR(CKD) >90 (>60 ml/min/1.73 sqM); Potassium 4.1 mmol/L (3.5-5.1); Sodium 137 mmol/L (137-145)
[2020-04-12 14:35] VITALS: BP 102/75; PULSE 70; RESP 18; TEMP 98.4
== END 2020-04-12 14:35 | disposition home or self-care (01) ==
LOC: EC 10:49
DX: M94.0 Chondrocostal junction syndrome [Tietze] (principal); Z88.2 Allergy status to sulfonamides; Z88.1 Allergy status to other antibiotic agents; Z88.3 Allergy status to other anti-infective agents
CPT/HCPCS: 36415; 80048; 84484; 85025; 85379; 93005; 99285

== ENCOUNTER 2020-05-23 16:17 | Emergency (ER) | payer OTHER ==
[2020-05-23 16:26] VITALS: BP 108/60; PULSE 73; RESP 18; TEMP 98.8
--- NOTE | 2020-05-23 16:47 | ED ---
General Adult HPI - General Chief complaint: ENT Stated complaint: sinus problems Time Seen by Provider: 05/23/20 16:28 Source: patient Mode of arrival: ambulatory Limitations: no limitations - History of Present Illness Initial comments: 34-year-old female history of sinus infection presenting to the emergency department with chief complaint of sinus infection. Patient states that her son was sick with an upper respiratory infection about 3 days ago and now she has very similar symptoms. Patient states she is a smoker although this does not feel like her typical sinus infection. She does report clear bilateral rhinorrhea but no sinus pressure or tenderness. Denies taking medication to alleviate the symptoms. - Related Data Home Medications Medication Instructions Recorded Confirmed No Known Home Medications 04/12/20 04/12/20 Allergies Allergy/AdvReac Type Severity Reaction Status Date / Time sulfamethoxazole Allergy Rash/Hives Verified 05/23/20 16:23 [From Bactrim] trimethoprim [From Bactrim] Allergy Rash/Hives Verified 05/23/20 16:23 fluconazole [From Diflucan] AdvReac Nausea & Verified 05/23/20 16:23 Vomiting Review of Systems ROS Statement: Those systems with pertinent positive or pertinent negative responses have been documented in the HPI. ROS Other: All systems not noted in ROS Statement are negative. Past Medical History Past Medical History: GERD/Reflux Additional Past Medical History / Comment(s): rectal fissure, miscarriage, hypoglycemia, History of Any Multi-Drug Resistant Organisms: None Reported Past Surgical History: No Surgical Hx Reported Past Anesthesia/Blood Transfusion Reactions: No Reported Reaction Past Psychological History: No Psychological Hx Reported Smoking Status: Current every day smoker Past Alcohol Use History: Occasional Past Drug Use History: Marijuana - Past Family History Mother Family Medical History: No Reported History General Exam Limitations: no limitations General appearance: alert, in no apparent distress Head exam: Present: atraumatic, normocephalic, normal inspection Eye exam: Present: normal appearance, PERRL, EOMI Pupils: Present: normal accommodation ENT exam: Present: normal exam, normal oropharynx, mucous membranes moist, TM's normal bilaterally, normal external ear exam Neck exam: Present: normal inspection, full ROM. Absent: tenderness, lymphadenopathy Respiratory exam: Present: normal lung sounds bilaterally. Absent: respiratory distress, wheezes, rales Cardiovascular Exam: Present: regular rate, normal rhythm, normal heart sounds. Absent: systolic murmur, diastolic murmur Extremities exam: Present: normal inspection, full ROM, normal capillary refill. Absent: tenderness, pedal edema, joint swelling, calf tenderness Back exam: Present: normal inspection, full ROM. Absent: tenderness, CVA tenderness (R), CVA tenderness (L) Neurological exam: Present: alert, oriented X3 Psychiatric exam: Present: normal affect, normal mood Skin exam: Present: warm, dry, intact, normal color Course Vital Signs 05/23/20 16:23 Temperature 98.8 F Pulse Rate 73 Respiratory 18 Rate Blood Pressure 108/60 O2 Sat by Pulse 97 Oximetry Medical Decision Making - Medical Decision Making 34-year-old female presenting to the emergency department with a chief complaint of sinus infection. ENT examination is unremarkable. No tenderness over the sinuses. No rhinorrhea. Patient was offered covid-19e testing, she declined. Return parameters thoroughly discussed with patient is an attending ago. Case discussed with physician. Disposition Clinical Impression: Upper respiratory infection Disposition: HOME SELF-CARE Condition: Stable Instructions (If sedation given, give patient instructions): Upper Respiratory Infection in Children (ED) Additional Instructions: Return to emergency department if symptoms worsen. Is patient prescribed a controlled substance at d/c from ED?: No Referrals: Malik Samayoa MD [Primary Care Provider] - 1-2 days Time of Disposition: 16:47
== END 2020-05-23 16:59 | disposition home or self-care (01) ==
LOC: EC 16:17
DX: J06.9 Acute upper respiratory infection, unspecified (principal); F17.200 Nicotine dependence, unspecified, uncomplicated; Z88.2 Allergy status to sulfonamides; Z88.1 Allergy status to other antibiotic agents; Z88.3 Allergy status to other anti-infective agents
CPT/HCPCS: 99283

== ENCOUNTER 2020-10-26 18:26 | Emergency (ER) | payer OTHER ==
[2020-10-26 18:32] VITALS: BP 132/82; PULSE 69; RESP 18; TEMP 98.3
--- NOTE | 2020-10-26 19:43 | ED ---
Skin/Abscess/FB HPI - General Chief complaint: Skin/Abscess/Foreign Body Stated complaint: Lt Toe Injury Time Seen by Provider: 10/26/20 18:35 Source: patient Mode of arrival: ambulatory Limitations: no limitations - History of Present Illness Initial comments: Patient is a 35-year-old female presenting to the emergency Department with complaints of pain in her left toe for 1 month. Patient states one month ago she was working, she bought new shoes however they were weight too tight. Patient states she had to finish her shift working in the same shoes. She states that evening which took him off she noticed that her left great toenail was bruised and a little spot. She states over the past month she's had bruising and swelling of her left toenail, she's had some drainage from the area. She states a few days ago she went to a different hospital, they wanted to drain a however she was too scared and state that the physician "was very rude and left without doing anything." She comes in for second opinion today. She said no fevers or chills. She's had no injuries to to her toe. She has no further complaints. - Related Data Previous Rx's Medication Instructions Recorded Cephalexin [Keflex] 500 mg PO Q6HR 5 Days #20 cap 10/26/20 Allergies Allergy/AdvReac Type Severity Reaction Status Date / Time sulfamethoxazole Allergy Rash/Hives Verified 10/26/20 19:13 [From Bactrim] trimethoprim [From Bactrim] Allergy Rash/Hives Verified 10/26/20 19:13 fluconazole [From Diflucan] AdvReac Nausea & Verified 10/26/20 19:13 Vomiting Review of Systems ROS Statement: Those systems with pertinent positive or pertinent negative responses have been documented in the HPI. ROS Other: All systems not noted in ROS Statement are negative. Past Medical History Past Medical History: GERD/Reflux Additional Past Medical History / Comment(s): rectal fissure, miscarriage, hypoglycemia, History of Any Multi-Drug Resistant Organisms: None Reported Past Surgical History: No Surgical Hx Reported Past Anesthesia/Blood Transfusion Reactions: No Reported Reaction Past Psychological History: No Psychological Hx Reported Smoking Status: Current every day smoker Past Alcohol Use History: Occasional Past Drug Use History: Marijuana - Past Family History Mother Family Medical History: No Reported History General Exam - General Exam Comments Initial Comments: GENERAL: Patient is well-developed and well-nourished. Patient is nontoxic and in no acute distress. HEAD: Atraumatic, normocephalic. EYES: Pupils equal round and reactive to light, extraocular movements intact, sclera anicteric, conjunctiva are normal. Eyelids were unremarkable. ENT: Nares patent, oropharynx clear without exudates. Moist mucous membranes. NECK: Normal range of motion, supple without lymphadenopathy or JVD. LUNGS: Unlabored respirations. Breath sounds clear to auscultation bilaterally and equal. No wheezes rales or rhonchi. HEART: Regular rate and rhythm without murmurs, rubs or gallops. ABDOMEN: Soft, nontender, normoactive bowel sounds. No guarding, no rebound. No masses appreciated. : Deferred MUSCULOSKELETAL: Normal extremities with adequate strength and normal range of motion, no pitting or edema. No clubbing or cyanosis. NEUROLOGICAL: Patient is alert and oriented x 3. Normal speech, normal gait. PSYCH: Normal mood, normal affect. SKIN: Warm, Dry, normal turgor, no rashes or lesions noted. Patient has a subungual hematoma of the left great toenail, there also appears to be additional fluid noted underneath the toenail, minimally painful. Limitations: no limitations Course Vital Signs 10/26/20 18:28 Temperature 98.3 F Pulse Rate 69 Respiratory 18 Rate Blood Pressure 132/82 O2 Sat by Pulse 97 Oximetry Procedures - Procedures Initial comment: Patient had a subungual hematoma of the left great toenail, I did puncture the nail with a needle, there was fluid drainage. She tolerated procedure well. Medical Decision Making - Medical Decision Making Patient is a 35-year-old female here with left great toe pain over the past month. On exam, she has a subungual hematoma of the left toenail. I did puncture this with a needle, there was some drainage present. Patient will be placed on antibiotics, she will follow with telephone station repairer. She is in agreement with this plan of care and she is stable for discharge. Disposition Clinical Impression: Subungual hematoma of great toe of left foot Disposition: HOME SELF-CARE Condition: Stable Instructions (If sedation given, give patient instructions): Subungual Hematoma (ED) Additional Instructions: Please return to the Emergency Department if symptoms worsen or any other concerns. I recommend following up with a telephone station repairer as discussed. Take antibiotics as directed. Warm water soaks 1-2 times daily. Prescriptions: Cephalexin [Keflex] 500 mg PO Q6HR 5 Days #20 cap Is patient prescribed a controlled substance at d/c from ED?: No Referrals: Pina Aparicio MD [Primary Care Provider] - 1-2 days Time of Disposition: 19:43
== END 2020-10-26 20:00 | disposition home or self-care (01) ==
LOC: EC 18:26
DX: S90.212A Contusion of left great toe with damage to nail, initial encounter (principal); K21.9 Gastro-esophageal reflux disease without esophagitis; F17.200 Nicotine dependence, unspecified, uncomplicated; X58.XXXA Exposure to other specified factors, initial encounter
CPT/HCPCS: 10060; 99282

== ENCOUNTER 2021-02-13 15:29 | Emergency (ER) | payer OTHER ==
[2021-02-13 15:48] VITALS: BP 109/74; PULSE 78; RESP 18; TEMP 98.3
== END 2021-02-13 16:51 | disposition left against medical advice (07) ==
LOC: EC 15:29
DX: R05 Cough (principal); R06.02 Shortness of breath; Z20.822 Contact with and (suspected) exposure to COVID-19
CPT/HCPCS: 87635; 99499

== ENCOUNTER 2021-04-19 14:47 | Emergency (ER) | payer OTHER ==
[2021-04-19] MEDS ORDERED: BACITRACIN OINT 1 EACH PACKET TOPICAL ONE (17:39)
--- NOTE | 2021-04-19 17:40 | ED ---
Head Injury HPI - General Chief complaint: Head Injury Stated complaint: Injury,Head Time Seen by Provider: 04/19/21 17:19 Source: patient, RN notes reviewed Mode of arrival: ambulatory Limitations: no limitations - History of Present Illness Initial comments: 35-year-old female presents emergency department with chief complaint of a head injury. 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 Patient states that there is a laceration on left side of her forehead. Last tetanus was 6 months ago. Patient states that she initially had a mild headache which is now improved denies any visual disturbances including blurred vision, double vision. Denies nausea, vomiting, dizziness, neck pain. Patient states there was a large amount of bleeding initially which has since subsided at this point. - Related Data Previous Rx's Medication Instructions Recorded Cephalexin [Keflex] 500 mg PO Q6HR 5 Days #20 cap 10/26/20 Allergies/Adverse reactions: Allergies Allergy/AdvReac Type Severity Reaction Status Date / Time sulfamethoxazole Allergy Rash/Hives Verified 04/19/21 16:26 [From Bactrim] trimethoprim [From Bactrim] Allergy Rash/Hives Verified 04/19/21 16:26 fluconazole [From Diflucan] AdvReac Nausea & Verified 04/19/21 16:26 Vomiting Review of Systems ROS Statement: Those systems with pertinent positive or pertinent negative responses have been documented in the HPI. ROS Other: All systems not noted in ROS Statement are negative. Past Medical History Past Medical History: GERD/Reflux Additional Past Medical History / Comment(s): rectal fissure, miscarriage, hypoglycemia, History of Any Multi-Drug Resistant Organisms: None Reported Past Surgical History: No Surgical Hx Reported Past Anesthesia/Blood Transfusion Reactions: No Reported Reaction Past Psychological History: Anxiety Smoking Status: Current every day smoker, Current some day smoker, Former smoker Past Alcohol Use History: None Reported, Occasional Past Drug Use History: None Reported, Marijuana - Past Family History Mother Family Medical History: No Reported History General Exam Limitations: no limitations General appearance: alert, in no apparent distress Head exam: Present: atraumatic, normocephalic. Absent: normal inspection (There is a 3 cm laceration forehead superficial) Eye exam: Present: normal appearance, PERRL, EOMI. Absent: scleral icterus, conjunctival injection, periorbital swelling ENT exam: Present: normal exam, normal oropharynx, mucous membranes moist Neck exam: Present: normal inspection, full ROM. Absent: tenderness, meningismus, lymphadenopathy Respiratory exam: Present: normal lung sounds bilaterally. Absent: respiratory distress, wheezes, rales, rhonchi, stridor Cardiovascular Exam: Present: regular rate, normal rhythm, normal heart sounds. Absent: systolic murmur, diastolic murmur, rubs, gallop, clicks Course Vital Signs 04/19/21 16:26 Temperature 100.2 F H Pulse Rate 83 Respiratory 18 Rate Blood Pressure 127/73 O2 Sat by Pulse 99 Oximetry Medical Decision Making - Medical Decision Making Patient has a laceration which is superficial no major head injury. Laceration does not need any closure. Disposition Clinical Impression: Head contusion, Forehead laceration Disposition: HOME SELF-CARE Condition: Stable Instructions (If sedation given, give patient instructions): Laceration (ED), Head Injury (ED) Additional Instructions: Please return to the Emergency Department if symptoms worsen or any other concerns. Is patient prescribed a controlled substance at d/c from ED?: No Referrals: None,Stated [Primary Care Provider] - 1-2 days Time of Disposition: 17:40
[2021-04-19 18:35] VITALS: BP 118/77; PULSE 84; RESP 16; TEMP 99
== END 2021-04-19 18:35 | disposition home or self-care (01) ==
LOC: EC 14:47
DX: S01.81XA Laceration without foreign body of other part of head, initial encounter (principal); Z87.891 Personal history of nicotine dependence; Z88.1 Allergy status to other antibiotic agents; Z88.2 Allergy status to sulfonamides; Z88.3 Allergy status to other anti-infective agents; W22.8XXA Striking against or struck by other objects, initial encounter
CPT/HCPCS: 99282

== ENCOUNTER 2021-05-08 01:36 | Emergency (ER) | payer OTHER ==
[2021-05-08 01:43] VITALS: BP 130/87; PULSE 68; RESP 22; TEMP 98.5
[2021-05-08 02:20] LABS: Amorphous Sediment,Urine Rare /hpf; Appearance,Urine Cloudy (Clear); Bilirubin,Urine Negative (Negative); Blood,Urine Negative (Negative); Color,Urine Yellow; Glucose,Urine (UA) Negative (Negative); Hyaline Casts,Urine 1 /lpf (0-2); Ketones,Urine Negative (Negative); Leukocyte Esterase,Urine Negative (Negative); Mucus,Urine Occasional /hpf; Nitrite,Urine Negative (Negative); Protein,Urine Trace (Negative); RBC,Urine 1 /hpf (0-5); Specific Gravity,Urine 1.023 (1.001-1.035); Squamous Epithelial Cell,Urine 9 /hpf (0-4); Urobilinogen,Urine <2.0 mg/dL (<2.0); WBC,Urine 2 /hpf (0-5)
== END 2021-05-08 02:33 | disposition left against medical advice (07) ==
LOC: EC 01:36
DX: R53.1 Weakness (principal); Z53.21 Procedure and treatment not carried out due to patient leaving prior to being seen by health care provider
CPT/HCPCS: 81001; 81025; 99499

== ENCOUNTER 2021-05-16 12:37 | Emergency (ER) | payer OTHER ==
[2021-05-16 12:46] VITALS: RESP 20
[2021-05-16] MEDS ORDERED: ACETAMINOPHEN TAB 500 MG TAB PO STA (13:04)
--- NOTE | 2021-05-16 13:23 | ED ---
General Adult HPI - General Chief complaint: Fever Stated complaint: Body Aches Time Seen by Provider: 05/16/21 13:10 Source: patient, RN notes reviewed Mode of arrival: ambulatory Limitations: no limitations - History of Present Illness Initial comments: Well-appearing 35-year-old female presents to the emergency room with her son after being exposed to dad who was coronavirus positive on Sunday. Her symptoms started on Sunday. She states that she has had body aches and feeling chilled while waiting in the ER with her son. She is requesting be tested for coronavirus. She has no medical history no medicines on a daily basis. Denies any nausea vomiting or diarrhea. She has not been vaccinated. -: days(s) (3) - Related Data Home Medications Medication Instructions Recorded Confirmed Acetaminophen [Tylenol] 1,000 mg PO Q6H PRN 05/16/21 05/16/21 Ibuprofen [Motrin Ib] 200 mg PO Q6H PRN 05/16/21 05/16/21 Allergies Allergy/AdvReac Type Severity Reaction Status Date / Time sulfamethoxazole Allergy Rash/Hives Verified 05/16/21 13:53 [From Bactrim] trimethoprim [From Bactrim] Allergy Rash/Hives Verified 05/16/21 13:53 fluconazole [From Diflucan] AdvReac Nausea & Verified 05/16/21 13:53 Vomiting & Diarrhea Review of Systems ROS Statement: Those systems with pertinent positive or pertinent negative responses have been documented in the HPI. ROS Other: All systems not noted in ROS Statement are negative. Past Medical History Past Medical History: GERD/Reflux Additional Past Medical History / Comment(s): rectal fissure, miscarriage, hypoglycemia, History of Any Multi-Drug Resistant Organisms: None Reported Past Surgical History: No Surgical Hx Reported Past Anesthesia/Blood Transfusion Reactions: No Reported Reaction Past Psychological History: Anxiety Smoking Status: Current every day smoker, Current some day smoker, Former smoker Past Alcohol Use History: None Reported, Occasional Past Drug Use History: None Reported, Marijuana - Past Family History Mother Family Medical History: No Reported History General Exam Limitations: no limitations General appearance: alert, in no apparent distress Head exam: Present: atraumatic, normocephalic, normal inspection Eye exam: Present: normal appearance, EOMI. Absent: scleral icterus, conjunctival injection, periorbital swelling ENT exam: Present: normal exam, normal oropharynx, mucous membranes moist Respiratory exam: Present: normal lung sounds bilaterally. Absent: respiratory distress, wheezes, rales, rhonchi, stridor Cardiovascular Exam: Present: tachycardia. Absent: JVD Neurological exam: Present: alert, oriented X3, normal gait Psychiatric exam: Present: normal affect, normal mood Skin exam: Present: warm, dry, intact, normal color. Absent: rash, cyanosis, diaphoretic Course Vital Signs 05/16/21 05/16/21 12:42 14:47 Temperature 100.8 F H 98.9 F Pulse Rate 102 H 99 Respiratory 20 20 Rate Blood Pressure 105/69 108/77 O2 Sat by Pulse 99 99 Oximetry Medical Decision Making - Medical Decision Making Patient was exposed to coronavirus by her on Sunday. Her symptoms started on Sunday. She has body aches and fevers. She has no medical history does not take any medicine a daily basis. She does not meet criteria for monoclonal antibodies infusion. She was directed to self quarantine for 10 days from symptom onset and 24 hours without fever. Continue vitamin C, vitamin D and zinc. Tylenol and/or Motrin as needed for body aches or fevers. Return to the emergency room with any new or worsening symptoms. - Lab Data Lab Results 05/16/21 Range/Units 13:12 Coronavirus (PCR) Detected A (Not Detectd) Disposition Clinical Impression: COVID-19 Disposition: HOME SELF-CARE Condition: Good Instructions (If sedation given, give patient instructions): Coronavirus Disease 2019 (COVID-19) Additional Instructions: You can take Tylenol and Motrin for body aches or fevers. You can also take vitamin C, vitamin D and zinc for immune health. Increase her fluid intake. Follow-up with your doctor as needed. Return to the emergency room with any new or worsening symptoms. Self quarantine for 10 days from symptom onset and 24 hours without fever. Is patient prescribed a controlled substance at d/c from ED?: No Referrals: Malik Samayoa MD [Primary Care Provider] - 1-2 days Time of Disposition: 14:06
[2021-05-16 14:48] VITALS: BP 108/77; PULSE 99; TEMP 98.9
== END 2021-05-16 14:48 | disposition home or self-care (01) ==
LOC: EC 12:37
DX: U07.1 COVID-19 (principal); F17.200 Nicotine dependence, unspecified, uncomplicated; F12.90 Cannabis use, unspecified, uncomplicated; Z88.2 Allergy status to sulfonamides; Z88.1 Allergy status to other antibiotic agents
CPT/HCPCS: 87635; 99283

== ENCOUNTER 2021-05-19 12:44 | Emergency (ER) | payer OTHER ==
[2021-05-19 13:12] VITALS: BP 131/91; PULSE 109; RESP 18; TEMP 99.9
[2021-05-19] MEDS ORDERED: IBUPROFEN 600 MG TAB PO STA (13:20)
--- NOTE | 2021-05-19 13:28 | ED ---
URI HPI - General Chief Complaint: Upper Respiratory Infection Stated Complaint: Covid +,SOB Time Seen by Provider: 05/19/21 13:13 Source: patient, RN notes reviewed Mode of arrival: ambulatory - History of Present Illness Initial Comments: Patient is a 35-year-old female that presents to the emergency department complaining of Covid-positive for several days. She notes that she came back today due to a cough. She notes that she was told she can take Robitussin but was unsure so she came to the emergency room. She was otherwise well-appearing. She denied any other issues or complaints. She notes that she is starting to feel better. She denied chest pain shortness of breath headache nausea vomiting diarrhea constipation fever fatigue chills. - Related Data Home Medications Medication Instructions Recorded Confirmed Acetaminophen [Tylenol] 1,000 mg PO Q6H PRN 05/16/21 05/16/21 Ibuprofen [Motrin Ib] 200 mg PO Q6H PRN 05/16/21 05/16/21 Previous Rx's Medication Instructions Recorded Benzonatate [Tessalon Perles] 100 mg PO TID PRN #15 capsule 05/19/21 Famotidine [Pepcid] 20 mg PO DAILY #14 tablet 05/19/21 Fluticasone Nasal [place] [Flonase 2 spr EA NOSTRIL DAILY #16 gm 05/19/21 Nasal [place]] Loratadine 10 mg PO DAILY 14 Days #14 tablet 05/19/21 Allergies Allergy/AdvReac Type Severity Reaction Status Date / Time sulfamethoxazole Allergy Rash/Hives Verified 05/19/21 13:12 [From Bactrim] trimethoprim [From Bactrim] Allergy Rash/Hives Verified 05/19/21 13:12 fluconazole [From Diflucan] AdvReac Nausea & Verified 05/19/21 13:12 Vomiting & Diarrhea Review of Systems ROS Statement: Those systems with pertinent positive or pertinent negative responses have been documented in the HPI. ROS Other: All systems not noted in ROS Statement are negative. Past Medical History Past Medical History: GERD/Reflux Additional Past Medical History / Comment(s): rectal fissure, miscarriage, hypoglycemia, History of Any Multi-Drug Resistant Organisms: None Reported Past Surgical History: No Surgical Hx Reported Past Anesthesia/Blood Transfusion Reactions: No Reported Reaction Past Psychological History: Anxiety, Depression Smoking Status: Current every day smoker, Current some day smoker, Former smoker Past Alcohol Use History: None Reported, Occasional Past Drug Use History: Marijuana - Past Family History Mother Family Medical History: No Reported History General Exam General appearance: alert, in no apparent distress Head exam: Present: atraumatic, normocephalic, normal inspection Eye exam: Present: normal appearance, PERRL, EOMI. Absent: scleral icterus, conjunctival injection, periorbital swelling ENT exam: Present: normal exam, mucous membranes moist Neck exam: Present: normal inspection Respiratory exam: Present: normal lung sounds bilaterally. Absent: respiratory distress, wheezes, rales, rhonchi, stridor Cardiovascular Exam: Present: regular rate, normal rhythm, normal heart sounds. Absent: systolic murmur, diastolic murmur, rubs, gallop, clicks Extremities exam: Present: normal inspection, full ROM, normal capillary refill. Absent: tenderness, pedal edema, joint swelling, calf tenderness Neurological exam: Present: alert, oriented X3 Psychiatric exam: Present: normal affect, normal mood Skin exam: Present: warm, dry, intact, normal color. Absent: rash Course Vital Signs 05/19/21 13:05 Temperature 99.9 F H Pulse Rate 109 H Respiratory 18 Rate Blood Pressure 131/91 O2 Sat by Pulse 98 Oximetry Medical Decision Making - Medical Decision Making 35-year-old female Covid-positive for the past several days complaining of cough only. Patient does not meet criteria for monoclonal antibodies. Patient will be sent cough medicine to her pharmacy. Case discussed with Dr. Hood, patient discharge home. Disposition Clinical Impression: COVID-19 Disposition: HOME SELF-CARE Condition: Stable Instructions (If sedation given, give patient instructions): Coronavirus Disease 2019 (COVID-19) Additional Instructions: Please return to the Emergency Department if symptoms worsen or any other concerns. Follow-up with primary care in 1-2 days. Take cough medication as prescribed Take Flonase later 10 and Pepcid as prescribed. Prescriptions: Fluticasone Nasal [place] [Flonase Nasal [place]] 2 spr EA NOSTRIL DAILY #16 gm Loratadine 10 mg PO DAILY 14 Days #14 tablet Famotidine [Pepcid] 20 mg PO DAILY #14 tablet Benzonatate [Tessalon Perles] 100 mg PO TID PRN #15 capsule PRN Reason: Cough Is patient prescribed a controlled substance at d/c from ED?: No Referrals: Malik Samayoa MD [Primary Care Provider] - 1-2 days Time of Disposition: 13:27
[2021-05-19] MEDS: ACETAMINOPHEN TAB 325 MG TAB PO STA ×2 (13:35→13:38)
== END 2021-05-19 13:40 | disposition home or self-care (01) ==
LOC: EC 12:44
DX: U07.1 COVID-19 (principal); K21.9 Gastro-esophageal reflux disease without esophagitis; F41.9 Anxiety disorder, unspecified; F32.A Depression, unspecified; F17.200 Nicotine dependence, unspecified, uncomplicated; F12.90 Cannabis use, unspecified, uncomplicated; Z88.2 Allergy status to sulfonamides; Z88.1 Allergy status to other antibiotic agents
CPT/HCPCS: 99283

== ENCOUNTER 2021-12-28 18:07 | Emergency (ER) | payer OTHER ==
[2021-12-28 18:38] VITALS: BP 110/74; PULSE 66; RESP 16; TEMP 98
[2021-12-28] MEDS ORDERED: SODIUM CHLORIDE 0.9% 1,000 ML IV ONE (19:15)
--- NOTE | 2021-12-28 19:23 | ED ---
Female Urogenital HPI - General Chief complaint: Vaginal Bleeding Stated complaint: Poss Miscarriage Time Seen by Provider: 12/28/21 19:12 Source: patient, RN notes reviewed, old records reviewed Mode of arrival: ambulatory Limitations: no limitations - History of Present Illness Initial comments: 36-year-old well-appearing female presents to the emergency room with complaints of vaginal bleeding and "actively miscarrying". Patient states that she tested positive with home test and believes she was about 5 weeks . She states that she has had 3 previous miscarriages. She has 3 living children. States that she has no pain at this time. Was told by Dr. Gomez her CRISIS WORKER to come to the emergency room for evaluation. Patient denies any pain at this time. No nausea, vomiting or diarrhea. No fevers. MD Complaint: vaginal bleeding -: days(s) (1) Severity scale (1-10): 0 Associated Symptoms: vaginal bleeding - Related Data Sexually active: Yes Home Medications Medication Instructions Recorded Confirmed Acetaminophen [Tylenol] 1,000 mg PO Q6H PRN 05/16/21 05/16/21 Ibuprofen [Motrin Ib] 200 mg PO Q6H PRN 05/16/21 05/16/21 Previous Rx's Medication Instructions Recorded Benzonatate [Tessalon Perles] 100 mg PO TID PRN #15 capsule 05/19/21 Famotidine [Pepcid] 20 mg PO DAILY #14 tablet 05/19/21 Fluticasone Nasal [place] [Flonase 2 spr EA NOSTRIL DAILY #16 gm 05/19/21 Nasal [place]] Loratadine 10 mg PO DAILY 14 Days #14 tablet 05/19/21 Allergies Allergy/AdvReac Type Severity Reaction Status Date / Time sulfamethoxazole Allergy Rash/Hives Verified 12/28/21 18:38 [From Bactrim] trimethoprim [From Bactrim] Allergy Rash/Hives Verified 12/28/21 18:38 fluconazole [From Diflucan] AdvReac Nausea & Verified 12/28/21 18:38 Vomiting & Diarrhea Review of Systems ROS Statement: Those systems with pertinent positive or pertinent negative responses have been documented in the HPI. ROS Other: All systems not noted in ROS Statement are negative. Past Medical History Past Medical History: GERD/Reflux Additional Past Medical History / Comment(s): rectal fissure, miscarriage, hypoglycemia, History of Any Multi-Drug Resistant Organisms: None Reported Past Surgical History: No Surgical Hx Reported Past Anesthesia/Blood Transfusion Reactions: No Reported Reaction Past Psychological History: Anxiety, Depression Smoking Status: Former smoker Past Alcohol Use History: Occasional Past Drug Use History: Marijuana - Past Family History Mother Family Medical History: No Reported History General Exam Limitations: no limitations General appearance: alert, in no apparent distress Head exam: Present: atraumatic, normocephalic Eye exam: Absent: scleral icterus, conjunctival injection, periorbital swelling Respiratory exam: Absent: respiratory distress, accessory muscle use Cardiovascular Exam: Present: regular rate GI/Abdominal exam: Present: soft. Absent: distended, tenderness Extremities exam: Present: normal capillary refill. Absent: pedal edema Neurological exam: Present: alert, oriented X3, normal gait Psychiatric exam: Present: normal affect, normal mood Skin exam: Present: warm, dry, normal color. Absent: cyanosis, diaphoretic, petechiae, pallor Course Vital Signs 12/28/21 18:36 Temperature 98 F Pulse Rate 66 Respiratory 16 Rate Blood Pressure 110/74 O2 Sat by Pulse 100 Oximetry Medical Decision Making - Medical Decision Making Patient presents with 3 days of vaginal bleeding. She states that she was but knows that she is actively miscarrying. She is a , states that she was told by Dr. Gomez to go to ER for evaluation. Urine test is negative. HCG quantitative is 21.8, blood type O+. Hemoglobin and hematocrit are stable. Ultrasound shows no evidence of intrauterine gestational sac. Patient has no pain at this time. Vital signs are stable. Patient was given a prescription to have her serum hCG redrawn in 48 hours. She was instructed to follow up with her CRISIS WORKER as scheduled. Return to the emergency room with any new or concerning symptoms. Vital signs are stable. - Lab Data Result diagrams: 12/28/21 19:14 12/28/21 19:15 Lab Results 12/28/21 12/28/21 12/28/21 Range/Units 19:14 19:15 19:15 WBC 6.2 (3.8-10.6) k/uL RBC 4.05 (3.80-5.40) m/uL Hgb 12.7 (11.4-16.0) gm/dL Hct 38.5 (34.0-46.0) % MCV 95.0 (80.0-100.0) fL MCH 31.4 (25.0-35.0) pg MCHC 33.0 (31.0-37.0) g/dL RDW 12.9 (11.5-15.5) % Plt Count 140 L (150-450) k/uL MPV 9.3 Neutrophils % 74 % Lymphocytes % 17 % Monocytes % 5 % Eosinophils % 1 % Basophils % 1 % Neutrophils # 4.7 (1.3-7.7) k/uL Lymphocytes # 1.1 (1.0-4.8) k/uL Monocytes # 0.3 (0-1.0) k/uL Eosinophils # 0.1 (0-0.7) k/uL Basophils # 0.0 (0-0.2) k/uL Sodium (137-145) mmol/L Potassium (3.5-5.1) mmol/L Chloride (98-107) mmol/L Carbon Dioxide (22-30) mmol/L Anion Gap mmol/L BUN (7-17) mg/dL Creatinine (0.52-1.04) mg/dL Est GFR (CKD-EPI)AfAm (>60 ml/min/1.73 sqM) Est GFR (CKD-EPI)NonAf (>60 ml/min/1.73 sqM) Glucose (74-99) mg/dL Calcium (8.4-10.2) mg/dL Lactate Dehydrogenase (313-618) U/L HCG, Quant mIU/mL Urine Color Yellow Urine Appearance Cloudy H (Clear) Urine pH 6.5 (5.0-8.0) Ur Specific [place] 1.018 (1.001-1.035) Urine Protein Trace H (Negative) Urine Glucose (UA) Negative (Negative) Urine Ketones Negative (Negative) Urine Blood Large H (Negative) Urine Nitrite Negative (Negative) Urine Bilirubin Negative (Negative) Urine Urobilinogen <2.0 (<2.0) mg/dL Ur Leukocyte Esterase Moderate H (Negative) Urine RBC >182 H (0-5) /hpf Urine WBC 18 H (0-5) /hpf Ur Squamous Epith Cells 4 (0-4) /hpf Amorphous Sediment Rare H (None) /hpf Urine Mucus Rare H (None) /hpf Urine HCG, Qual Not Detected (Not Detectd) 12/28/21 Range/Units 19:15 WBC (3.8-10.6) k/uL RBC (3.80-5.40) m/uL Hgb (11.4-16.0) gm/dL Hct (34.0-46.0) % MCV (80.0-100.0) fL MCH (25.0-35.0) pg MCHC (31.0-37.0) g/dL RDW (11.5-15.5) % Plt Count (150-450) k/uL MPV Neutrophils % % Lymphocytes % % Monocytes % % Eosinophils % % Basophils % % Neutrophils # (1.3-7.7) k/uL Lymphocytes # (1.0-4.8) k/uL Monocytes # (0-1.0) k/uL Eosinophils # (0-0.7) k/uL Basophils # (0-0.2) k/uL Sodium 136 L (137-145) mmol/L Potassium 3.8 (3.5-5.1) mmol/L Chloride 104 (98-107) mmol/L Carbon Dioxide 28 (22-30) mmol/L Anion Gap 4 mmol/L BUN 10 (7-17) mg/dL Creatinine 0.66 (0.52-1.04) mg/dL Est GFR (CKD-EPI)AfAm >90 (>60 ml/min/1.73 sqM) Est GFR (CKD-EPI)NonAf >90 (>60 ml/min/1.73 sqM) Glucose 82 (74-99) mg/dL Calcium 9.0 (8.4-10.2) mg/dL Lactate Dehydrogenase 281 L (313-618) U/L HCG, Quant 21.8 mIU/mL Urine Color Urine Appearance (Clear) Urine pH (5.0-8.0) Ur Specific [place] (1.001-1.035) Urine Protein (Negative) Urine Glucose (UA) (Negative) Urine Ketones (Negative) Urine Blood (Negative) Urine Nitrite (Negative) Urine Bilirubin (Negative) Urine Urobilinogen (<2.0) mg/dL Ur Leukocyte Esterase (Negative) Urine RBC (0-5) /hpf Urine WBC (0-5) /hpf Ur Squamous Epith Cells (0-4) /hpf Amorphous Sediment (None) /hpf Urine Mucus (None) /hpf Urine HCG, Qual (Not Detectd) Disposition Clinical Impression: Complete Disposition: HOME SELF-CARE Condition: Good Instructions (If sedation given, give patient instructions): Miscarriage (ED) Additional Instructions: Have your blood redrawn in 48 hours. Follow-up with Dr. Gomez as scheduled. Return to emergency room if any new or concerning symptoms. Is patient prescribed a controlled substance at d/c from ED?: No Referrals: Malik Samayoa MD [Primary Care Provider] - 1-2 days Aileen Gomez DO [Doctor of Osteopathic Medicine] - 1-2 days Time of Disposition: 22:23
[2021-12-28 19:44] LABS: Basophils % (A) 1 %; Eosinophils # (A) 0.1 k/uL (0-0.7); Eosinophils % (A) 1 %; HCT 38.5 % (34.0-46.0); HGB 12.7 gm/dL (11.4-16.0); Lymphocytes # (A) 1.1 k/uL (1.0-4.8); Lymphocytes % (A) 17 %; MCH 31.4 pg (25.0-35.0); Mean Platelet Volume 9.3; Monocytes # (A) 0.3 k/uL (0-1.0); Monocytes % (A) 5 %; Neutrophils # (A) 4.7 k/uL (1.3-7.7); Neutrophils % (A) 74 %; Platelet Count 140 k/uL (150-450); RBC 4.05 m/uL (3.80-5.40); RDW 12.9 % (11.5-15.5); WBC 6.2 k/uL (3.8-10.6)
[2021-12-28 19:55] LABS: African American GFR (CKD) >90 (>60 ml/min/1.73 sqM); Anion Gap 4 mmol/L; Blood Urea Nitrogen 10 mg/dL (7-17); Carbon Dioxide 28 mmol/L (22-30); Chloride 104 mmol/L (98-107); Glucose 82 mg/dL (74-99); LDH 281 U/L (313-618); Non-African American GFR(CKD) >90 (>60 ml/min/1.73 sqM); Potassium 3.8 mmol/L (3.5-5.1); Sodium 136 mmol/L (137-145)
[2021-12-28 19:59] LABS: Amorphous Sediment,Urine Rare /hpf; Appearance,Urine Cloudy (Clear); Bilirubin,Urine Negative (Negative); Blood,Urine Large (Negative); Color,Urine Yellow; Glucose,Urine (UA) Negative (Negative); Ketones,Urine Negative (Negative); Leukocyte Esterase,Urine Moderate (Negative); Mucus,Urine Rare /hpf; Nitrite,Urine Negative (Negative); PH, Urine 6.5 (5.0-8.0); Protein,Urine Trace (Negative); RBC,Urine >182 /hpf (0-5); Specific Gravity,Urine 1.018 (1.001-1.035); Squamous Epithelial Cell,Urine 4 /hpf (0-4); Urobilinogen,Urine <2.0 mg/dL (<2.0); WBC,Urine 18 /hpf (0-5)
[2021-12-28 20:11] LABS: HCG,Quantitative Serum 21.8 mIU/mL
--- NOTE | 2021-12-28 22:02 | US ---
EXAMINATION TYPE: Transabdominal DATE OF EXAM: 12/28/2021 9:43 PM COMPARISON: NONE CLINICAL HISTORY: r/o retained products. EXAM PERFORMED: Transabdominal (TA) EXAM MEASUREMENTS: GESTATIONAL AGE / DATING Physician Established: Not yet established Dates by LMP: (4 weeks/6 days) EDC: 08/31/2022 Dates by First Scan: No previous this is first scan Dates by Current Scan for: No IUP seen at this time MATERNAL ANATOMY Uterus: 9.6 x 4.5 x 6.3cm, retroverted, endometrium appears wnl Right Ovary: 2.9 x 1.4 x 1.7cm Left Ovary: 3.3 x 1.8 x 1.9cm Post CDS / Adnexa: wnl Presence of free fluid: no Presence of corpus luteal cyst: left ovary: 1.6cm Presence of subchorionic bleed: no GESTATION / SURVEY IUP: No IUP seen at this time Date of LMP: 11/24/2021 Beta HcG (if available): 21.8 IMPRESSION: No evidence for intrauterine gestational sac at this time. This is likely due to early rose rosario ectopic is not entirely excluded. Attention on follow-up imaging and serial beta-hCG.
== END 2021-12-28 22:31 | disposition home or self-care (01) ==
LOC: EC 18:07
DX: O03.9 Complete or unspecified spontaneous abortion without complication (principal); K21.9 Gastro-esophageal reflux disease without esophagitis; F41.9 Anxiety disorder, unspecified; F32.A Depression, unspecified; F12.90 Cannabis use, unspecified, uncomplicated; Z87.891 Personal history of nicotine dependence; Z88.2 Allergy status to sulfonamides; Z88.8 Allergy status to other drugs, medicaments and biological substances; Z79.899 Other long term (current) drug therapy
CPT/HCPCS: 36415; 76801; 80048; 81001; 81025; 83615; 84702; 85025; 87086; 99284

== ENCOUNTER → 2021-12-30 | Outpatient (CLI) | payer OTHER | END | disposition home or self-care (01) | LOC: LABWHC1 11:59 | PROVIDERS: ATTEND Nurse Practitioner Family | DX: O20.0 Threatened abortion (principal) | CPT/HCPCS: 36415; 84702 ==

== ENCOUNTER 2023-01-17 14:57 | Emergency (ER) | payer OTHER ==
[2023-01-17 15:14] VITALS: BP 103/73; RESP 20; TEMP 98.9
--- NOTE | 2023-01-17 15:42 | ED ---
General Adult HPI - General Chief complaint: Abdominal Pain Stated complaint: abd pain Time Seen by Provider: 01/17/23 15:27 Source: patient Mode of arrival: ambulatory Limitations: no limitations - History of Present Illness Initial comments: The patient is a 37-year-old female who is otherwise healthy presents emergency room with complaints of left pelvic pain and urinary frequency. Patient states this started yesterday but worsened today. Patient states her are actively trying to conceive however she is not taken a test. Her last menstrual period was January 01 and was 4 days late. She states she has had irregular menstrual cycles since having a LEEP done back in August of this year. She had a LEEP for diagnosis of HPV. 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 Patient denies any concern for STD. She denies any discharge. She denies any dysuria, hematuria, fevers. She has a history of ovarian cysts as well. - Related Data Home Medications Medication Instructions Recorded Confirmed Acetaminophen [Tylenol] 1,000 mg PO Q6H PRN 05/16/21 05/16/21 Ibuprofen [Motrin Ib] 200 mg PO Q6H PRN 05/16/21 05/16/21 Previous Rx's Medication Instructions Recorded Benzonatate [Tessalon Perles] 100 mg PO TID PRN #15 capsule 05/19/21 Famotidine [Pepcid] 20 mg PO DAILY #14 tablet 05/19/21 Fluticasone Nasal [place] [Flonase 2 spr EA NOSTRIL DAILY #16 gm 05/19/21 Nasal [place]] Loratadine 10 mg PO DAILY 14 Days #14 tablet 05/19/21 Allergies Allergy/AdvReac Type Severity Reaction Status Date / Time sulfamethoxazole Allergy Rash/Hives Verified 01/17/23 15:14 [From Bactrim] trimethoprim [From Bactrim] Allergy Rash/Hives Verified 01/17/23 15:14 fluconazole [From Diflucan] AdvReac Nausea & Verified 01/17/23 15:14 Vomiting & Diarrhea Review of Systems ROS Statement: Those systems with pertinent positive or pertinent negative responses have been documented in the HPI. ROS Other: All systems not noted in ROS Statement are negative. Past Medical History Past Medical History: GERD/Reflux Additional Past Medical History / Comment(s): rectal fissure, miscarriage, hypoglycemia, History of Any Multi-Drug Resistant Organisms: None Reported Past Surgical History: No Surgical Hx Reported Past Anesthesia/Blood Transfusion Reactions: No Reported Reaction Past Psychological History: Anxiety, Depression Smoking Status: Former smoker Past Alcohol Use History: Occasional Past Drug Use History: Marijuana - Past Family History Mother Family Medical History: No Reported History General Exam - General Exam Comments Initial Comments: Pelvic exam deferred. Limitations: no limitations General appearance: alert, in no apparent distress Eye exam: Present: normal appearance, PERRL ENT exam: Present: normal exam Respiratory exam: Present: normal lung sounds bilaterally Cardiovascular Exam: Present: regular rate, normal rhythm GI/Abdominal exam: Present: soft, distended (Mild left pelvic pain with palpation no rebound tenderness no peritoneal signs.), other Extremities exam: Present: full ROM Neurological exam: Present: alert, altered, oriented X3 Psychiatric exam: Present: normal affect, normal mood Skin exam: Present: warm Course Vital Signs 01/17/23 01/17/23 15:10 16:40 Temperature 98.9 F Pulse Rate 107 H 77 Respiratory 20 Rate Blood Pressure 103/73 O2 Sat by Pulse 99 98 Oximetry - Reevaluation(s) Reevaluation #1: 01/17/23 1802 Discussed her lab results with the patient. Patient's hCG Quant was negative. She has no obvious urinary tract infection and WBCs are within normal limits. I discussed following through with the ultrasound to rule out another cause of the pelvic pain. Patient states she will have the ultrasound and will follow-up with [employer]GER after climbing equipment. Reevaluation #2: 01/17/23 18:48 The patient did not want to wait to have the ultrasound done. She states her needs to get to work so she left prior to having the ultrasound and discharge paperwork. She does understand the risk of leaving AGAINST MEDICAL ADVICE including undiagnosed ovarian torsion, infection or other complication, or . She does understand I don't have a specific reason for the pelvic pain without ruling out problems on ultrasound. Medical Decision Making - Medical Decision Making Was pt. sent in by a medical professional or institution (, PA, MALE IMPERSONATOR, urgent care, hospital, or shelter...) When possible be specific @ -[No] Did you speak to anyone other than the patient for history (EMS, parent, family, police, friend...)? What history was obtained from this source @ -[No] Did you review nursing and triage notes (agree or disagree)? Why? @ -[I reviewed and agree with nursing and triage notes] Were old charts reviewed (outside hosp., previous admission, EMS record, old EKG, old radiological studies, urgent care reports/EKG's, shelter records)? Report findings @ -[No old charts were reviewed] Differential Diagnosis (chest pain, altered mental status, abdominal pain women, abdominal pain men, vaginal bleeding, weakness, fever, dyspnea, syncope, headache, dizziness, GI bleed, back pain, seizure, CVA, palpatations, mental health, musculoskeletal)? @ -Ovarian cyst, urinary tract infection, diverticulitis, pyelonephritis, ectopic , early pain, threatened EKG interpreted by me (3pts min.). @ -[As above] X-rays interpreted by me (1pt min.). @ -[None done] CT interpreted by me (1pt min.). @ -[None done] U/S interpreted by me (1pt. min.). @ -Patient signed out before having the ultrasound What testing was considered but not performed or refused? (CT, X-rays, U/S, labs)? Why? @ -[None] What meds were considered but not given or refused? Why? @ -[None] Did you discuss the management of the patient with other professionals (professionals i.e. , PA, MALE IMPERSONATOR, lab, RT, psych nurse, social work assistant, central office supervisor, teacher, human resource officer, manager case)? Give summary @ -Discussed patient's visit with Dr. Daniels attending ED physician after patient signed out before discharge Was smoking cessation discussed for >3mins.? @ -[No] Was critical care preformed (if so, how long)? @ -[No] Were there social determinants of health that impacted care today? How? (Homelessness, low income, unemployed, alcoholism, drug addiction, transportation, low edu. Level, literacy, decrease access to med. care, [facility], rehab)? @ -[No] Was there de-escalation of care discussed even if they declined (Discuss DNR or withdrawal of care, Hospice)? DNR status @ -[No] What co-morbidities impacted this encounter? (DM, HTN, Smoking, COPD, CAD, Cancer, CVA, ARF, Chemo, Hep., AIDS, mental health diagnosis, sleep apnea, morbid obesity)? @ -[None] Was patient admitted / discharged? Hospital course, mention meds given and route, prescriptions, significant lab abnormalities, going to OR and other pertinent info. @ -Discharge for outpatient follow-up with [employer]GER, no hospitalization required Undiagnosed new problem with uncertain prognosis? @ -[No] Drug Therapy requiring intensive monitoring for toxicity (Heparin, Nitro, Insulin, Cardizem)? @ -[No] Were any procedures done? @ -[No] Diagnosis/symptom? @ -Pelvic pain, urinary frequency Acute, or Chronic, or Acute on Chronic? @ -Acute Uncomplicated (without systemic symptoms) or Complicated (systemic symptoms)? @ -[default] Side effects of treatment? @ -[No] Exacerbation, Progression, or Severe Exacerbation? @ -[No] Poses a threat to life or bodily function? How? (Chest pain, [place], [place], pneumonia, PE, COPD, DKA, ARF, appy, cholecystitis, CVA, Diverticulitis, Homicidal, Suicidal, threat to staff... and all critical care pts) @ -[No] - Lab Data Result diagrams: 01/17/23 15:53 01/17/23 15:53 Lab Results 01/17/23 01/17/23 01/17/23 Range/Units 15:53 15:53 15:53 WBC 6.9 (3.8-10.6) k/uL RBC 4.32 (3.80-5.40) m/uL Hgb 14.1 (11.4-16.0) gm/dL Hct 40.4 (34.0-46.0) % MCV 93.4 (80.0-100.0) fL MCH 32.5 (25.0-35.0) pg MCHC 34.8 (31.0-37.0) g/dL RDW 13.3 (11.5-15.5) % Plt Count 137 L (150-450) k/uL MPV 9.0 Neutrophils % 77 % Lymphocytes % 15 % Monocytes % 6 % Eosinophils % 1 % Basophils % 0 % Neutrophils # 5.3 (1.3-7.7) k/uL Lymphocytes # 1.0 (1.0-4.8) k/uL Monocytes # 0.4 (0-1.0) k/uL Eosinophils # 0.1 (0-0.7) k/uL Basophils # 0.0 (0-0.2) k/uL Sodium 138 (137-145) mmol/L Potassium 3.9 (3.5-5.1) mmol/L Chloride 102 (98-107) mmol/L Carbon Dioxide 26 (22-30) mmol/L Anion Gap 10 mmol/L BUN 11 (7-17) mg/dL Creatinine 0.82 (0.52-1.04) mg/dL Est GFR (CKD-EPI)AfAm >90 (>60 ml/min/1.73 sqM) Est GFR (CKD-EPI)NonAf >90 (>60 ml/min/1.73 sqM) Glucose 87 (74-99) mg/dL Plasma Lactic Acid [place] (0.7-2.0) mmol/L Calcium 9.2 (8.4-10.2) mg/dL Total Bilirubin 0.7 (0.2-1.3) mg/dL AST 21 (14-36) U/L ALT 14 (4-34) U/L Alkaline Phosphatase 52 (38-126) U/L Total Protein 7.4 (6.3-8.2) g/dL Albumin 4.5 (3.5-5.0) g/dL HCG, Quant <2.4 mIU/mL Urine Color Yellow Urine Appearance Clear (Clear) Urine pH 6.0 (5.0-8.0) Ur Specific [place] 1.020 (1.001-1.035) Urine Protein Negative (Negative) Urine Glucose (UA) Negative (Negative) Urine Ketones Negative (Negative) Urine Blood Small H (Negative) Urine Nitrite Negative (Negative) Urine Bilirubin Negative (Negative) Urine Urobilinogen <2.0 (<2.0) mg/dL Ur Leukocyte Esterase Negative (Negative) Urine RBC 16 H (0-5) /hpf Urine WBC 1 (0-5) /hpf Ur Squamous Epith Cells 5 H (0-4) /hpf Urine Mucus Rare H (None) /hpf Urine Yeast (Budding) Occasional H (None) /hpf 01/17/23 Range/Units 15:53 WBC (3.8-10.6) k/uL RBC (3.80-5.40) m/uL Hgb (11.4-16.0) gm/dL Hct (34.0-46.0) % MCV (80.0-100.0) fL MCH (25.0-35.0) pg MCHC (31.0-37.0) g/dL RDW (11.5-15.5) % Plt Count (150-450) k/uL MPV Neutrophils % % Lymphocytes % % Monocytes % % Eosinophils % % Basophils % % Neutrophils # (1.3-7.7) k/uL Lymphocytes # (1.0-4.8) k/uL Monocytes # (0-1.0) k/uL Eosinophils # (0-0.7) k/uL Basophils # (0-0.2) k/uL Sodium (137-145) mmol/L Potassium (3.5-5.1) mmol/L Chloride (98-107) mmol/L Carbon Dioxide (22-30) mmol/L Anion Gap mmol/L BUN (7-17) mg/dL Creatinine (0.52-1.04) mg/dL Est GFR (CKD-EPI)AfAm (>60 ml/min/1.73 sqM) Est GFR (CKD-EPI)NonAf (>60 ml/min/1.73 sqM) Glucose (74-99) mg/dL Plasma Lactic Acid [place] 1.2 (0.7-2.0) mmol/L Calcium (8.4-10.2) mg/dL Total Bilirubin (0.2-1.3) mg/dL AST (14-36) U/L ALT (4-34) U/L Alkaline Phosphatase (38-126) U/L Total Protein (6.3-8.2) g/dL Albumin (3.5-5.0) g/dL HCG, Quant mIU/mL Urine Color Urine Appearance (Clear) Urine pH (5.0-8.0) Ur Specific [place] (1.001-1.035) Urine Protein (Negative) Urine Glucose (UA) (Negative) Urine Ketones (Negative) Urine Blood (Negative) Urine Nitrite (Negative) Urine Bilirubin (Negative) Urine Urobilinogen (<2.0) mg/dL Ur Leukocyte Esterase (Negative) Urine RBC (0-5) /hpf Urine WBC (0-5) /hpf Ur Squamous Epith Cells (0-4) /hpf Urine Mucus (None) /hpf Urine Yeast (Budding) (None) /hpf Disposition Clinical Impression: Pelvic pain, Urinary frequency Disposition: HOME SELF-CARE Additional Instructions: follow up at your upcomign appointment with the OBGYN Is patient prescribed a controlled substance at d/c from ED?: No Referrals: Malik Samayoa MD [Primary Care Provider] - 1-2 days Time of Disposition: 16:48 (patient left before discharge and without discharge paperwork. she left prior to US and diagnosis)
[2023-01-17 16:07] LABS: Basophils % (A) 0 %; Eosinophils # (A) 0.1 k/uL (0-0.7); Eosinophils % (A) 1 %; HCT 40.4 % (34.0-46.0); HGB 14.1 gm/dL (11.4-16.0); Lymphocytes % (A) 15 %; MCH 32.5 pg (25.0-35.0); MCHC 34.8 g/dL (31.0-37.0); MCV 93.4 fL (80.0-100.0); Monocytes # (A) 0.4 k/uL (0-1.0); Monocytes % (A) 6 %; Neutrophils # (A) 5.3 k/uL (1.3-7.7); Neutrophils % (A) 77 %; Platelet Count 137 k/uL (150-450); RBC 4.32 m/uL (3.80-5.40); RDW 13.3 % (11.5-15.5); WBC 6.9 k/uL (3.8-10.6)
[2023-01-17 16:21] LABS: Appearance,Urine Clear (Clear); Bilirubin,Urine Negative (Negative); Blood,Urine Small (Negative); Budding Yeast,Urine Occasional /hpf; Color,Urine Yellow; Glucose,Urine (UA) Negative (Negative); Ketones,Urine Negative (Negative); Leukocyte Esterase,Urine Negative (Negative); Mucus,Urine Rare /hpf; Nitrite,Urine Negative (Negative); Protein,Urine Negative (Negative); RBC,Urine 16 /hpf (0-5); Squamous Epithelial Cell,Urine 5 /hpf (0-4); Urobilinogen,Urine <2.0 mg/dL (<2.0); WBC,Urine 1 /hpf (0-5)
[2023-01-17 16:40] LABS: ALT 14 U/L (4-34); AST 21 U/L (14-36); African American GFR (CKD) >90 (>60 ml/min/1.73 sqM); Albumin 4.5 g/dL (3.5-5.0); Alkaline Phosphatase 52 U/L (38-126); Anion Gap 10 mmol/L; Blood Urea Nitrogen 11 mg/dL (7-17); Calcium 9.2 mg/dL (8.4-10.2); Carbon Dioxide 26 mmol/L (22-30); Chloride 102 mmol/L (98-107); Glucose 87 mg/dL (74-99); Non-African American GFR(CKD) >90 (>60 ml/min/1.73 sqM); Potassium 3.9 mmol/L (3.5-5.1); Sodium 138 mmol/L (137-145); Total Bilirubin 0.7 mg/dL (0.2-1.3); Total Protein 7.4 g/dL (6.3-8.2)
[2023-01-17 16:41] VITALS: PULSE 77
[2023-01-17 16:58] LABS: HCG,Quantitative Serum <2.4 mIU/mL
== END 2023-01-17 18:25 | disposition home or self-care (01) ==
LOC: EC 14:57
DX: R10.2 Pelvic and perineal pain (principal); R35.0 Frequency of micturition; F12.90 Cannabis use, unspecified, uncomplicated; Z86.59 Personal history of other mental and behavioral disorders; Z87.891 Personal history of nicotine dependence; Z88.1 Allergy status to other antibiotic agents; Z88.3 Allergy status to other anti-infective agents; Z88.2 Allergy status to sulfonamides
CPT/HCPCS: 36415; 80053; 81001; 83605; 84702; 85025; 99284

== ENCOUNTER 2023-12-02 13:59 | Emergency (ER) | payer OTHER ==
[2023-12-02 14:06] VITALS: RESP 18; TEMP 97.9
--- NOTE | 2023-12-02 14:08 | ED ---
Abdominal Pain HPI - General Chief Complaint: Abdominal Pain Stated Complaint: Vomiting, Abd pain Time Seen by Provider: 12/02/23 14:08 Source: patient, RN notes reviewed Mode of arrival: ambulatory Limitations: no limitations - History of Present Illness Initial Comments: This is a 38-year-old female presents emergency department chief complaint of bilateral pelvic pain over the last day. Patient states that she experienced abdominal discomfort Night and feeling she had to pass gas. States that she went to the bathroom and had an episode of vomiting. During the morning her pelvic pain has been mildly worsening. She has a history of ovarian cyst. Her last menstrual cycle was 11/11/2023, patient states that she had an at home negative test this morning. She denies dysuria, hematuria, increasing frequency or urgency, diarrhea, chills, fevers. Denies hememesis or hematochezia. - Related Data Home Medications Medication Instructions Recorded Confirmed Acetaminophen [Tylenol] 1,000 mg PO Q6H PRN 05/16/21 05/16/21 Ibuprofen [Motrin Ib] 200 mg PO Q6H PRN 05/16/21 05/16/21 Previous Rx's Medication Instructions Recorded Benzonatate [Tessalon Perles] 100 mg PO TID PRN #15 capsule 05/19/21 Famotidine [Pepcid] 20 mg PO DAILY #14 tablet 05/19/21 Fluticasone Nasal [place] [Flonase 2 spr EA NOSTRIL DAILY #16 gm 05/19/21 Nasal [place]] Loratadine 10 mg PO DAILY 14 Days #14 tablet 05/19/21 Omeprazole [PriLOSEC] 40 mg PO DAILY #14 cap 12/02/23 Ondansetron Odt [Zofran Odt] 4 mg PO Q8HR PRN #10 tab 12/02/23 Allergies Allergy/AdvReac Type Severity Reaction Status Date / Time sulfamethoxazole Allergy Rash/Hives Verified 12/02/23 14:06 [From Bactrim] trimethoprim [From Bactrim] Allergy Rash/Hives Verified 12/02/23 14:06 fluconazole [From Diflucan] AdvReac Nausea & Verified 12/02/23 14:06 Vomiting & Diarrhea Review of Systems ROS Statement: Those systems with pertinent positive or pertinent negative responses have been documented in the HPI. ROS Other: All systems not noted in ROS Statement are negative. Past Medical History Past Medical History: GERD/Reflux Additional Past Medical History / Comment(s): rectal fissure, miscarriage, hypoglycemia, History of Any Multi-Drug Resistant Organisms: None Reported Past Surgical History: No Surgical Hx Reported Past Anesthesia/Blood Transfusion Reactions: No Reported Reaction Past Psychological History: Anxiety, Depression Smoking Status: Former smoker Past Alcohol Use History: Occasional Past Drug Use History: Marijuana - Past Family History Mother Family Medical History: No Reported History General Exam Limitations: no limitations General appearance: alert, in no apparent distress Head exam: Present: atraumatic, normocephalic, normal inspection Eye exam: Present: normal appearance, PERRL, EOMI. Absent: scleral icterus, conjunctival injection, periorbital swelling ENT exam: Present: normal exam, mucous membranes moist Neck exam: Present: normal inspection. Absent: tenderness, meningismus, lympha denopathy Respiratory exam: Present: normal lung sounds bilaterally. Absent: respiratory distress, wheezes, rales, rhonchi, stridor Cardiovascular Exam: Present: regular rate, normal rhythm, normal heart sounds. Absent: systolic murmur, diastolic murmur, rubs, gallop, clicks GI/Abdominal exam: Present: soft, tenderness (pelvic and suprapubic), rebound, normal bowel sounds. Absent: guarding, rigid External exam: Present: normal external exam Speculum exam: Present: normal speculum exam. Absent: erythema, vaginal discharge, cervical discharge By manual exam: Present: normal by manual exam. Absent: cervical motion tenderness Extremities exam: Present: normal inspection, full ROM, normal capillary refill. Absent: tenderness, pedal edema, joint swelling, calf tenderness Back exam: Present: normal inspection Neurological exam: Present: alert, oriented X3, CN II-XII intact Course Vital Signs 12/02/23 12/02/23 14:04 16:38 Temperature 97.9 F Pulse Rate 92 78 Respiratory 18 18 Rate Blood Pressure 113/76 112/64 O2 Sat by Pulse 100 98 Oximetry Medical Decision Making - Medical Decision Making Was pt. sent in by a medical professional or institution (, PA, PACKING ROOM SUPERVISOR, urgent care, hospital, or prison...) When possible be specific @ -No Did you speak to anyone other than the patient for history (EMS, parent, family, police, friend...)? What history was obtained from this source @ -No Did you review nursing and triage notes (agree or disagree)? Why? @ -I reviewed and agree with nursing and triage notes Were old charts reviewed (outside hosp., previous admission, EMS record, old EKG, old radiological studies, urgent care reports/EKG's, prison records)? Report findings @ -No old charts were reviewed Differential Diagnosis (chest pain, altered mental status, abdominal pain women, abdominal pain men, vaginal bleeding, weakness, fever, dyspnea, syncope, headache, dizziness, GI bleed, back pain, seizure, CVA, palpatations, mental health, musculoskeletal)? @ -Differential Abdominal Pain Women: Appendicitis, Cholecystitis, diverticulosis, ischemic bowel, pancreatitis, hepatitis, UTI, gastroenteritis, AAA, incarcerated hernia, bowel obstruction, constipation, inflammatory bowel, hepatitis, peptic ulcer disease, splenic i nfarction, perforated viscus, vulvitis, ovarian torsion, PID, kidney stone, placenta abruption, this is not meant to be an all-inclusive list EKG interpreted by me (3pts min.). @ -None X-rays interpreted by me (1pt min.). @ -None done CT interpreted by me (1pt min.). @ -None done U/S interpreted by me (1pt. min.). @ -US of the bladder unremarkable US of the pelvis reveals a retroverted size, thickened endometrium up to 2.1 cm. 2.3 cm hemorrhagic cyst of the right ovary. no evidence for ovarian torsion. What testing was considered but not performed or refused? (CT, X-rays, U/S, labs)? Why? @ -None What meds were considered but not given or refused? Why? @ -Patient was offered antinausea medication and pain medication but she has declined at this time. Did you discuss the management of the patient with other professionals (professionals i.e. , PA, PACKING ROOM SUPERVISOR, lab, RT, psych nurse, social work instructor, clerk of works, teacher, reserve officer, returned case inspector)? Give summary @ -No Was smoking cessation discussed for >3mins.? @ -No Was critical care preformed (if so, how long)? @ -No Were there social determinants of health that impacted care today? How? (Homelessness, low income, unemployed, alcoholism, drug addiction, transportation, low edu. Level, literacy, decrease access to med. care, [facility], rehab)? @ -No Was there de-escalation of care discussed even if they declined (Discuss DNR or withdrawal of care, Hospice)? DNR status @ -No What co-morbidities impacted this encounter? (DM, HTN, Smoking, COPD, CAD, Cancer, CVA, ARF, Chemo, Hep., AIDS, mental health diagnosis, sleep apnea, morbid obesity)? @ -None Was patient admitted / discharged? Hospital course, mention meds given and route, prescriptions, significant lab abnormalities, going to OR and other pertinent info. @ -Discharged. 38-year-old female with pelvic pain. On examination patient noted to have suprapubic and pelvic pain on palpation with mild rebound tenderness. Abdomen is otherwise soft. Pelvic exam unremarkable. Patient will be evaluated via laboratory studies and ultrasound. She is offered pain medication but has declined. Ultrasound remarkable for a 2.3 cm cyst of the right ovary. Labs including CBC, CMP, urinalysis unremarkable. Recommend that patient continues Tylenol Motrin at home for symptomatic relief. Recommend that she follows up with her welding tester for further evaluation. All questions answered at bedside and strict return parameters discussed with the patient she is verbalized understanding. Case discussed with Dr. Chaney. Undiagnosed new problem with uncertain prognosis? @ -No Drug Therapy requiring intensive monitoring for toxicity (Heparin, Nitro, Insulin, Cardizem)? @ -No Were any procedures done? @ -No Diagnosis/symptom? @ -hemorrhagic ovarian cyst, pelvic pain, abdominal pain, nausea and vomiting. Acute, or Chronic, or Acute on Chronic? @ -acute Uncomplicated (without systemic symptoms) or Complicated (systemic symptoms)? @ -uncomplicated Side effects of treatment? @ -No Exacerbation, Progression, or Severe Exacerbation? @ -No Poses a threat to life or bodily function? How? (Chest pain, [place], [place], pneumonia, PE, COPD, DKA, ARF, appy, cholecystitis, CVA, Diverticulitis, Homicidal, Suicidal, threat to staff... and all critical care pts) @ -No - Lab Data Result diagrams: 12/02/23 14:26 12/02/23 14:26 Lab Results 12/02/23 12/02/23 12/02/23 Range/Units 14:26 14:26 14:34 WBC 7.0 (3.8-10.6) k/uL RBC 4.32 (3.80-5.40) m/uL Hgb 13.8 (11.4-16.0) gm/dL Hct 41.3 (34.0-46.0) % MCV 95.6 (80.0-100.0) fL MCH 31.8 (25.0-35.0) pg MCHC 33.3 (31.0-37.0) g/dL RDW 12.9 (11.5-15.5) % Plt Count 106 L (150-450) k/uL MPV 10.1 Neutrophils % 80 % Lymphocytes % 12 % Monocytes % 6 % Eosinophils % 0 % Basophils % 0 % Neutrophils # 5.6 (1.3-7.7) k/uL Lymphocytes # 0.9 L (1.0-4.8) k/uL Monocytes # 0.4 (0-1.0) k/uL Eosinophils # 0.0 (0-0.7) k/uL Basophils # 0.0 (0-0.2) k/uL Sodium 136 L (137-145) mmol/L Potassium 3.7 (3.5-5.1) mmol/L Chloride 106 (98-107) mmol/L Carbon Dioxide 22 (22-30) mmol/L Anion Gap 8 mmol/L BUN 9 (7-17) mg/dL Creatinine 0.54 (0.52-1.04) mg/dL Est GFR (CKD-EPI)AfAm >90 (>60 ml/min/1.73 sqM) Est GFR (CKD-EPI)NonAf >90 (>60 ml/min/1.73 sqM) Glucose 89 (74-99) mg/dL Calcium 9.2 (8.4-10.2) mg/dL Total Bilirubin 1.2 (0.2-1.3) mg/dL AST 20 (14-36) U/L ALT 12 (4-34) U/L Alkaline Phosphatase 50 (38-126) U/L Total Protein 6.8 (6.3-8.2) g/dL Albumin 4.5 (3.5-5.0) g/dL Amylase 59 (30-110) U/L Lipase 92 (23-300) U/L Urine Color Yellow Urine Appearance Cloudy H (Clear) Urine pH 7.0 (5.0-8.0) Ur Specific [place] 1.020 (1.001-1.035) Urine Protein Negative (Negative) Urine Glucose (UA) Negative (Negative) Urine Ketones Negative (Negative) Urine Blood Negative (Negative) Urine Nitrite Negative (Negative) Urine Bilirubin Negative (Negative) Urine Urobilinogen <2.0 (<2.0) mg/dL Ur Leukocyte Esterase Negative (Negative) Urine RBC 6 H (0-5) /hpf Urine WBC 1 (0-5) /hpf Ur Squamous Epith Cells 6 H (0-4) /hpf Amorphous Sediment Moderate H (None) /hpf Urine Bacteria Rare H (None) /hpf Urine Mucus Rare H (None) /hpf Urine HCG, Qual (Not Detectd) 12/02/23 Range/Units 14:34 WBC (3.8-10.6) k/uL RBC (3.80-5.40) m/uL Hgb (11.4-16.0) gm/dL Hct (34.0-46.0) % MCV (80.0-100.0) fL MCH (25.0-35.0) pg MCHC (31.0-37.0) g/dL RDW (11.5-15.5) % Plt Count (150-450) k/uL MPV Neutrophils % % Lymphocytes % % Monocytes % % Eosinophils % % Basophils % % Neutrophils # (1.3-7.7) k/uL Lymphocytes # (1.0-4.8) k/uL Monocytes # (0-1.0) k/uL Eosinophils # (0-0.7) k/uL Basophils # (0-0.2) k/uL Sodium (137-145) mmol/L Potassium (3.5-5.1) mmol/L Chloride (98-107) mmol/L Carbon Dioxide (22-30) mmol/L Anion Gap mmol/L BUN (7-17) mg/dL Creatinine (0.52-1.04) mg/dL Est GFR (CKD-EPI)AfAm (>60 ml/min/1.73 sqM) Est GFR (CKD-EPI)NonAf (>60 ml/min/1.73 sqM) Glucose (74-99) mg/dL Calcium (8.4-10.2) mg/dL Total Bilirubin (0.2-1.3) mg/dL AST (14-36) U/L ALT (4-34) U/L Alkaline Phosphatase (38-126) U/L Total Protein (6.3-8.2) g/dL Albumin (3.5-5.0) g/dL Amylase (30-110) U/L Lipase (23-300) U/L Urine Color Urine Appearance (Clear) Urine pH (5.0-8.0) Ur Specific [place] (1.001-1.035) Urine Protein (Negative) Urine Glucose (UA) (Negative) Urine Ketones (Negative) Urine Blood (Negative) Urine Nitrite (Negative) Urine Bilirubin (Negative) Urine Urobilinogen (<2.0) mg/dL Ur Leukocyte Esterase (Negative) Urine RBC (0-5) /hpf Urine WBC (0-5) /hpf Ur Squamous Epith Cells (0-4) /hpf Amorphous Sediment (None) /hpf Urine Bacteria (None) /hpf Urine Mucus (None) /hpf Urine HCG, Qual Not Detected (Not Detectd) Disposition Clinical Impression: Abdominal pain, Hemorrhagic ovarian cyst Disposition: HOME SELF-CARE Condition: Good Instructions (If sedation given, give patient instructions): Ruptured Ovarian Cyst (ED) Additional Instructions: Return to the emergency department if your symptoms worsen or not improved. Continue to take Tylenol Motrin at home as needed for symptomatic relief. Recommend that you follow-up with your welding tester. Prescriptions: Omeprazole [PriLOSEC] 40 mg PO DAILY #14 cap Ondansetron Odt [Zofran Odt] 4 mg PO Q8HR PRN #10 tab PRN Reason: Nausea Is patient prescribed a controlled substance at d/c from ED?: No Referrals: Malik Samayoa MD [Primary Care Provider] - 1-2 days Time of Disposition: 16:16
[2023-12-02] MEDS: ONDANSETRON 4 MG/2 ML VIAL IVP STA (14:18)
[2023-12-02] MEDS: SODIUM CHLORIDE 0.9% 1,000 ML IV STA (14:22)
[2023-12-02 14:37] LABS: Basophils % (A) 0 %; Eosinophils % (A) 0 %; HCT 41.3 % (34.0-46.0); HGB 13.8 gm/dL (11.4-16.0); Lymphocytes # (A) 0.9 k/uL (1.0-4.8); Lymphocytes % (A) 12 %; MCH 31.8 pg (25.0-35.0); MCHC 33.3 g/dL (31.0-37.0); MCV 95.6 fL (80.0-100.0); Mean Platelet Volume 10.1; Monocytes # (A) 0.4 k/uL (0-1.0); Monocytes % (A) 6 %; Neutrophils # (A) 5.6 k/uL (1.3-7.7); Neutrophils % (A) 80 %; Platelet Count 106 k/uL (150-450); RBC 4.32 m/uL (3.80-5.40); RDW 12.9 % (11.5-15.5)
[2023-12-02 14:57] LABS: ALT 12 U/L (4-34); AST 20 U/L (14-36); African American GFR (CKD) >90 (>60 ml/min/1.73 sqM); Albumin 4.5 g/dL (3.5-5.0); Alkaline Phosphatase 50 U/L (38-126); Amylase 59 U/L (30-110); Anion Gap 8 mmol/L; Blood Urea Nitrogen 9 mg/dL (7-17); Calcium 9.2 mg/dL (8.4-10.2); Carbon Dioxide 22 mmol/L (22-30); Chloride 106 mmol/L (98-107); Glucose 89 mg/dL (74-99); Lipase 92 U/L (23-300); Non-African American GFR(CKD) >90 (>60 ml/min/1.73 sqM); Potassium 3.7 mmol/L (3.5-5.1); Sodium 136 mmol/L (137-145); Total Bilirubin 1.2 mg/dL (0.2-1.3); Total Protein 6.8 g/dL (6.3-8.2)
[2023-12-02 14:58] LABS: Amorphous Sediment,Urine Moderate /hpf; Appearance,Urine Cloudy (Clear); Bacteria,Urine Rare /hpf; Bilirubin,Urine Negative (Negative); Blood,Urine Negative (Negative); Color,Urine Yellow; Glucose,Urine (UA) Negative (Negative); Ketones,Urine Negative (Negative); Leukocyte Esterase,Urine Negative (Negative); Mucus,Urine Rare /hpf; Nitrite,Urine Negative (Negative); Protein,Urine Negative (Negative); RBC,Urine 6 /hpf (0-5); Squamous Epithelial Cell,Urine 6 /hpf (0-4); Urobilinogen,Urine <2.0 mg/dL (<2.0); WBC,Urine 1 /hpf (0-5)
--- NOTE | 2023-12-02 15:54 | US ---
EXAMINATION TYPE: US pelvic complete plus Dopplers DATE OF EXAM: 12/02/2023 COMPARISON: NONE CLINICAL INDICATION: Female, 38 years old with history of bilateral lower pelvic and bladder pain; Hx ovarian cysts TECHNIQUE: TA. Color Doppler and spectral waveform analysis of the ovarian arteries and veins. Date of LMP: 11/11/2023 EXAM MEASUREMENTS: Uterus: 7.4 x 5.4 x 6.1 cm Endometrial Stripe: 2.1 cm Right Ovary: 4.7 x 2.6 x 2.7 cm Left Ovary: 3.9 x 2.0 x 2.2 cm 1. Uterus: Retroverted. Multiple echogenic foci throughout. Heterogeneous myometrium. 2. Endometrium: Frankly thickened up to 2.1 cm 3. Right Ovary: Round 2.3 cm hypoechoic structure, possible hemorrhagic cyst. 4. Left Ovary: wnl Spectral, color and waveform doppler imaging shows good arterial and venous flow within the ovaries ; there is no evidence for ovarian torsion. On the right, there is superimposed arterial venous flow. 5. Bilateral Adnexa: Increased adnexal vascularity. 6. Posterior cul-de-sac: Trace fluid seen IMPRESSION: 1. Retroverted uterus. Punctate echogenic foci throughout and heterogeneous myometrium. Findings may be seen in the setting of adenomyosis. If further imaging evaluation is desired, female pelvic MRI ca n be performed to further assess the junctional anatomy. 2. Frankly thickened endometrium up to 2.1 cm. Follow-up in 6-8 weeks to ensure involution. Otherwise , hyperplasia or other endometrial abnormalities could be considered. 3. Possible 2.3 cm hemorrhagic cyst of the right ovary. This can also be reassessed at follow-up. 4. No sonographic evidence for ovarian torsion. 5. Increased adnexal vascularity is nonspecific. It may be physiologic but can also be seen with pelv ic congestion syndrome.
--- NOTE | 2023-12-02 15:59 | US ---
EXAMINATION TYPE: US bladder DATE OF EXAM: 12/02/2023 COMPARISON: NONE CLINICAL INDICATION: Female, 38 years old with history of bilateral lower pelvic and bladder pain; X 1 day; urinary frequency TECHNIQUE: Multiple sonographic images of the bladder are obtained. FINDINGS: Possible bladder wall thickening may be due to incomplete distention. Color Doppler performed to assess ureteral jets. Bilateral Jets seen: Yes IMPRESSION: Mild circumferential bladder wall thickening may be due to incomplete distention. Correlate to exclud e cystitis.
[2023-12-02 16:39] VITALS: BP 112/64; PULSE 78
== END 2023-12-02 16:39 | disposition home or self-care (01) ==
LOC: EC 13:59
DX: N83.201 Unspecified ovarian cyst, right side (principal); N83.202 Unspecified ovarian cyst, left side; Z87.891 Personal history of nicotine dependence; Z88.1 Allergy status to other antibiotic agents; Z88.2 Allergy status to sulfonamides; Z88.3 Allergy status to other anti-infective agents
CPT/HCPCS: 36415; 76856; 76857; 80053; 81001; 81025; 82150; 83690; 85025; 96360; 99284